=== PATIENT | female | born 1955 | race Caucasian/White ===

== ENCOUNTER → 2020-02-12 14:21 | Outpatient (BNVA) | payer MEDICARE, MEDICAID, SELFPAY | PROVIDERS: PCP Internal Medicine; Visit Provider Anesthesiology | DX: G90.522 Complex regional pain syndrome I of left lower limb (principal); I73.9 Peripheral vascular disease, unspecified; N18.30 Chronic kidney disease, stage 3 unspecified; I50.9 Heart failure, unspecified; Z79.891 Long term (current) use of opiate analgesic | CPT/HCPCS: 99213 ==

== ENCOUNTER → 2020-04-07 11:05 | Outpatient (BNVA) | payer MEDICARE, MEDICAID, SELFPAY | PROVIDERS: PCP Internal Medicine; Visit Provider Surgery Vascular Surgery | DX: I73.9 Peripheral vascular disease, unspecified (principal) | CPT/HCPCS: 99202 ==

== ENCOUNTER 2020-04-22 12:34 | Outpatient (REF) | payer MEDICARE, MEDICAID, SELFPAY ==
--- NOTE | 2020-04-22 12:41 | US_ITS ---
EXAMINATION: NONINVASIVE ASSESSMENT OF THE ARTERIES OF BOTH LOWER EXTREMITIES INCLUDING PVR EXAM AND BILATERAL LOWER EXTREMITY DUPLEX. CLINICAL INFORMATION: Atherosclerosis with claudication COMPARISON: None TECHNIQUE: Ankle pulse volume recordings, ankle pressure measurements and ankle brachial indices were obtained of the lower extremity arterial system bilaterally in addition to duplex Doppler techniques with wave form analysis and measurement of velocities in the common femoral, profunda femoral, superficial femoral, popliteal, tibial and peroneal arteries. The study was performed only at rest. FINDINGS: Brachial pressure is 170 RIGHT LEG 1. THE RIGHT ANKLE-BRACHIAL INDEX IS: 0.8 >0.97-1.25 = normal - no significant arterial disease 0.75-0.96 = mild peripheral arterial disease 0.5-0.74 = moderate peripheral arterial disease <0.50 = severe peripheral arterial disease <0.30 = critical arterial disease 2. SEGMENTAL PRESSURES (mmHg): Ankle: PT 131, DP 136 3. PVR WAVEFORMS: Ankle: Minimally blunted 4. DIRECT DUPLEX: Calcific plaque is present most prominently in the with a stenosis. Common femoral artery: 137 cm/s, monophasic Profunda femoris artery: 139 cm/s, monophasic Superficial femoral artery (proximal): 125 cm/s, multiphasic Superficial femoral artery (mid): 156 cm/s, monophasic Superficial femoral artery (distal): 180 cm/s, monophasic Proximal Popliteal artery: 83 cm/s, monophasic posterior tibial artery: 33 cm/s, monophasic LEFT LE. THE LEFT ANKLE-BRACHIAL INDEX IS: 0.9 (higher of the DP/PT) >0.97-1.25 = normal - no significant arterial disease 0.75-0.96 = mild peripheral arterial disease 0.5-0.74 = moderate peripheral arterial disease <0.50 = severe peripheral arterial disease <0.30 = critical arterial disease 2. SEGMENTAL PRESSURES: Ankle: PT 150, DP 109 3. PVR WAVEFORMS: Ankle: Normal 4. DIRECT DUPLEX: Calcified plaque is present with a area of velocity acceleration in the common femoral artery as well as the proximal and mid SFA consistent with stenoses Common femoral artery: 220 cm/s, Multiphasic Profunda femoris artery: 133 cm/s, Multiphasic Superficial femoral artery (proximal): 186 cm/s, monophasic Superficial femoral artery (mid): 147 cm/s, monophasic Superficial femoral artery (distal): 87 cm/s, monophasic Popliteal: 88 monophasic Posterior tibial: 30, monophasic US/US arterial duplex LE BI IMPRESSION: Right: Ankle-brachial indices consistent with mild peripheral vascular disease with diseased on duplex demonstrating monophasic flow throughout suggesting the possibility of inflow disease. Left: Left ankle-brachial index also consistent with mild disease with multiphasic flow present proximally but monophasic flow present distally. A common femoral artery and SFA stenoses are present.
== END 2020-04-22 12:35 | disposition home or self-care (01) ==
LOC: HO.US 12:34
PROVIDERS: PCP Internal Medicine; Visit Provider Surgery Vascular Surgery
DX: I70.213 Atherosclerosis of native arteries of extremities with intermittent claudication, bilateral legs (principal)
CPT/HCPCS: 93923; 93925

== ENCOUNTER → 2020-05-08 12:41 | Outpatient (BNVA) | payer MEDICARE, MEDICAID, SELFPAY | PROVIDERS: PCP Internal Medicine; Visit Provider Surgery Vascular Surgery | DX: I73.9 Peripheral vascular disease, unspecified (principal) | CPT/HCPCS: Q3014 ==

== ENCOUNTER → 2020-10-29 10:11 | Outpatient (BNVA) | payer MEDICARE, MEDICAID, SELFPAY | PROVIDERS: PCP Internal Medicine; Visit Provider Advanced Practice Midwife ==

== ENCOUNTER 2020-11-19 10:36 | Outpatient (REF) | payer MEDICARE, MEDICAID, SELFPAY ==
--- NOTE | ~2020-11-19 | US_ITS ---
EXAMINATION: PELVIC ULTRASOUND CLINICAL INFORMATION: Cervical mass COMPARISON: Previous CT of the abdomen and pelvis June 2015 TECHNIQUE: Transabdominal and transvaginal pelvic ultrasound was performed. Transvaginal exam was performed for better visualization the uterus, cervix and ovaries. FINDINGS: The uterus is anteverted and measures 7.8 x 3 x 3.4 cm in dimension. No focal uterine lesion is seen. Endometrial thickness is normal measuring 0.5 cm. There is a complex cystic lesion in the cervix that measures 2.3 x 1 6 x 2.2 cm. The ovaries are not seen. No adnexal mass is appreciated. There is no fluid in the pelvis. US/US pelvic and transvaginal IMPRESSION: 2.3 x 1.6 x 2.2 cm complex cystic lesion in the cervix. Normal-appearing uterus. Ovaries not seen.
== END 2020-11-19 10:37 | disposition home or self-care (01) ==
LOC: HO.US 10:36
PROVIDERS: Visit Provider Advanced Practice Midwife
DX: N88.8 Other specified noninflammatory disorders of cervix uteri (principal)
CPT/HCPCS: 76830; 76856

== ENCOUNTER → 2020-12-01 11:25 | Outpatient (BNVA) | payer MEDICARE, MEDICAID, SELFPAY | PROVIDERS: Visit Provider Advanced Practice Midwife | CPT/HCPCS: Q3014 ==

== ENCOUNTER 2020-12-03 09:37 | Emergency (ER) | payer MEDICARE, MEDICAID, SELFPAY ==
--- NOTE | ~2020-12-03 | CT_ITS ---
EXAMINATION: CT HEAD WITHOUT CONTRAST (STROKE PROTOCOL) CLINICAL INFORMATION: Stroke protocol. Right-sided hemiparesis COMPARISON: None TECHNIQUE: Contiguous axial imaging was performed from the skull base to vertex without intravenous administration of contrast. This CT examination was performed using dose optimization techniques as appropriate, variously including the following: *Automated exposure control *Adjustment of mA and/or kV according to patient size (this includes techniques or standardized protocols for targeted exams where dose is matched to indication/reason for exam; i.e. extremities or head) *Use of iterative reconstruction technique DLP: 784 mGy-cm FINDINGS: There is no intracranial hemorrhage, hematoma, or extra-axial fluid collection. The ventricles are normal in size. There is no hydrocephalus, edema, or mass effect. There is a faint region of diminished density within the left thalamus which could represent an early ischemic event. No significant mass effect or midline structure shift is appreciated with this.. . The calvarium appears intact. There is no pneumocephalus or orbital emphysema. The visualized sinuses and middle ears and mastoid air cells show no significant mucosal thickening. There are no air-fluid levels. CT/CT head for stroke IMPRESSION: Question faint region of diminished density within the left thalamus without mass effect or hemorrhage. This critical result was discussed with Dr. Ross at 12:15 PM hours on December 03, 2020. It was ascertained that the content and urgency of the report was understood at the time of direct communication.
[2020-12-03 09:39] VITALS: BP 139/70; PULSE 87; RESP 18; TEMP 36.6; O2SAT 96; BMI 38.9
--- NOTE | 2020-12-03 10:18 | ECG_ITS ---
Test Reason : STROKE Blood Pressure : / mmHG Vent. Rate : 075 BPM Atrial Rate : 075 BPM P-R Int : 160 ms QRS Dur : 096 ms QT Int : 392 ms P-R-T Axes : 074 051 099 degrees QTc Int : 437 ms Normal sinus rhythm with sinus arrhythmia Cannot rule out Anterior infarct (cited on or before 30-DEC-2017) Abnormal ECG When compared with ECG of 30-DEC-2017 14:13, T wave inversion no longer evident in Inferior leads Nonspecific T wave abnormality, improved in Lateral leads Referred By: Bárbara Ross Electronically Signed By:Sebastián Azul
--- NOTE | 2020-12-03 10:21 | ED_ITS ---
HPI - Neuro Symptoms/Deficit General Chief Complaint: Stroke Stated Complaint: right side numbness Time Seen by Provider: 12/03/20 09:44 Source: patient Mode of arrival: ambulatory Limitations: no limitations History of Present Illness HPI Narrative: 65 yo female woke up to use the bathroom at 2am today had an electric jolt to the R side of her body then it became weak, she fell due to this and hit her head no AC therapy, still tingling with weakness no prior episodes of this Onset (ago): hour(s) (2 am today) Timing confirmed by: other (self wok) History of same: No Severity: moderate Quality: weak and numb Relieving factors: none Exacerbating factors: none Context: sudden onset On Anticoagulants: No Associated symptoms: cough Treatments Prior to Arrival: none Related Data Home Medications Medication Instructions Recorded Confirmed aspirin 81 mg chewable tablet 1 tab PO DAILY 02/12/20 12/03/20 lorazepam 0.5 mg tablet 0.5 mg PO DAILY PRN 02/12/20 12/03/20 albuterol sulfate 90 mcg/actuation 2 puff PO Q6H PRN 12/03/20 12/03/20 aerosol inhaler atorvastatin 80 mg tablet 1 tab PO DAILY 12/03/20 12/03/20 cetirizine 10 mg tablet 10 mg PO DAILY PRN 12/03/20 12/03/20 ergocalciferol (vitamin D2) 1,250 1,250 mcg PO MO 12/03/20 12/03/20 mcg (50,000 unit) capsule levalbuterol tartrate 45 2 inh INHALATION DAILY 12/03/20 12/03/20 mcg/actuation aerosol inhaler (Xopenex HFA) Previous Rx's Medication Instructions Recorded metoprolol tartrate 50 mg tablet 50 mg PO BID #180 cap 05/19/20 blood-glucose meter (FreeStyle #1 ea 09/30/20 Lite Meter) lancets 28 gauge (FreeStyle #100 ea 09/30/20 Lancets) levothyroxine 150 mcg tablet 150 mcg PO DAILY #90 tab 10/05/20 glipizide 5 mg tablet 5 mg PO DAILY #90 tab 10/22/20 lisinopril 2.5 mg tablet 2.5 mg PO DAILY #90 tab 11/19/20 Allergies Allergy/AdvReac Type Severity Reaction Status Date / Time Penicillins Allergy Mild UNKNOWN Verified 12/01/20 11:26 buprenorphine [Suboxone] Allergy Unknown unknown Verified 12/01/20 11:26 naloxone [Suboxone] Allergy Unknown unknown Verified 12/01/20 11:26 Review of Systems Review of Systems: Constitutional : No Weight loss, No Fever, No Chills, No Fatigue, No Malaise ENT/Mouth : No sore throat, No Rhinorrhea Eyes: No Eye Pain, No Swelling, No Redness Cardiovascular : No Chest Pain, No SOB, No Dyspnea on Exertion, No Orthopnea, No Edema, No Palpitations Respiratory : pos Cough, No Sputum, pos Wheezing Gastrointestinal : No Nausea, No Vomiting, No Diarrhea, No Constipation, No abdominal Pain, No Hematochezia, No Melena Genitourinary : No Dysuria, No Urinary Frequency, No Hematuria, Musculoskeletal : No joint pain, No Myalgias, No Joint Swelling Skin : No Skin Lesions, No rash Neuro : pos Weakness, pos Numbness, No Dizziness, No Headache Psych : No Anxiety/Panic, No Depression Heme/Lymph: No Bruising, No Bleeding,No Lymphadenopathy Endocrine : No Polyuria, No Polydipsia All other systems reviewed and are negative PMFSH Past Medical History Attestation statement: The following information was validated with the patient. Medical History Cervical cancer screening CKD (chronic kidney disease) COPD (chronic obstructive pulmonary disease) Diabetes High cholesterol Hypothyroidism Post-menopausal Screening for breast cancer Surgical History Hx of coronary artery bypass graft S/P cardiac catheterization Family History Family History Mother Diabetes CAD (coronary artery disease) Social History Social History Alcohol intake: never Patient Tobacco Use Status: Former Tobacco user Quit Date: last week Cigarettes Per Day: 7 Years Smoked: 40+ years Advance Directives: No Advance Directives Information Provided: Yes Physical Exam Vital Signs: Vital Signs: Last Vital Signs Temp 98 F 12/03/20 09:39 Pulse 87 12/03/20 13:21 Resp 20 12/03/20 13:21 BP 149/88 H 12/03/20 13:21 Pulse Ox 96 12/03/20 09:39 Body Mass Index 38.9 Appearance: Alert. Oriented X3. No acute distress. Eyes: Pupils equal, round and reactive to light. ENT: Pharynx normal. Neck: Normal inspection. Neck supple. CVS: Normal heart rate and rhythm. Pulses normal. Respiratory: No respiratory distress. Breath sounds decreased with diffuse end exp wheezes Abdomen: Soft and nontender. Skin: Skin warm and dry. Normal skin color. Normal skin turgor. Extremities: No lower extremity edema. No calf ttp Neuro: Oriented X 3. R sided 4/5 UE and LUE. No sensory deficit. Course Course Course Narrative: CTA held as the patient is a tough stick she now is refusing to stay in the hospital as well as repeat IV sticks, aware at bedside, patient aware she had a stroke likely but now states she is not going to stay overnight regardlless, recent Cr abnormal as well. call from Radiology 1210pm - no acute findings. ?thalamic low density area for infarct - left side patient refusing MRI still wants to sign out AMA, GCS 15, and I both tried to get her to stay but she refuses, she is aware she had a stroke, she still refuses to stay I told her her CPK, troponin and blood sugar was abnormal - she still refuses to stay, I do not feel I can section her, I have been to the bedside 4+ times to get her to stay but she still refuses, the was not able to get her to s ruthie either MDM - Neuro Symptoms/Deficit MDM Narrative Medical decision making narrative: 65 yo female woke up to use the bathroom at 2am today had an electric jolt to the R side of her body then it became weak, she fell due to this and hit her head no AC therapy, still tingling with weakness no prior episodes of this at this time she has significant R sided hemiparesis she is in the window for thrombectomy - CT head and CT angio for stroke ordered, she is presenting 8 hours after onset not a candidate for tPa - also here with wheezing - IV steroids, neb treatment, dispo per results and findings. Lab Data Result diagrams: 12/03/20 10:43 12/03/20 12:04 Labs: Lab Results 12/03/20 12/03/20 12/03/20 Range/Units 10:34 10:41 10:43 WBC 12.7 H (4.8-10.8) X10*3/uL RBC 4.10 L (4.20-5.50) X10*6/uL Hgb 13.6 (12.0-16.0) g/dl Hct 39.6 (37-47) % MCV 96.6 (80-98) fL MCH 33.2 H (27.0-33.0) pg MCHC 34.3 (31.0-35.0) g/dl RDW 12.3 (11.0-16.0) % Plt Count 285 (160-400) X10*3/uL MPV 12.1 (9.4-12.3) fL Immature Gran % (Auto) 0.4 (0.0-0.4) % Neut % (Auto) 83.8 H (45-73) % Lymph % (Auto) 10.9 L (20-40) % [place] % (Auto) 4.0 (2-11) % Eos % (Auto) 0.5 (0-4) % Baso % (Auto) 0.4 (0-2) % Lymph # (Auto) 1.4 (1.2-4.9) X10*3/uL [place] # (Auto) 0.5 (0.1-1.2) X10*3/uL Eos # (Auto) 0.1 (0.0-0.4) X10*3/uL Baso # (Auto) 0.1 (0.0-0.2) X10*3/uL Abs Immat Gran (auto) 0.05 H (0.00-0.03) X10*3/uL Absolute Neuts (auto) 10.6 H (2.0-8.3) X10*3/uL Absolute Nucleated RBC 0.000 (0.0-0.012) X10*3/uL Nucleated RBC % (auto) 0.0 (0.0-0.2) /100WBC PT (9.9-13.0) SEC Whole Blood PT 11.4 (11.1-13.5) sec INR (0.9-1.1) Whole Blood INR 1.0 (0.9-1.1) APTT (24.1-38.0) SEC Sodium (135-145) mmol/L Potassium (3.3-5.1) mmol/L Chloride (96-108) mmol/L Carbon Dioxide (22-29) mmol/L Anion Gap (12-20) BUN (9-16) mg/dL Creatinine (0.5-1.4) mg/dL Estim Creat Clear Calc Estimated GFR POC Glucose 391 H* (60-115) mg/dL Random Glucose (60-115) mg/dL Calcium (8.4-10.2) mg/dL Magnesium (1.6-2.6) mg/dL Total Bilirubin (0.0-1.0) mg/dL Direct Bilirubin (0.0-0.5) mg/dL AST (5-31) U/L ALT (0-31) U/L Alkaline Phosphatase (39-117) U/L Total Creatine Kinase (26-140) U/L Troponin I High Sens (<3.5-17.0) ng/L B-Natriuretic Peptide (<100) pg/mL Total Protein (6.5-8.0) g/dL Albumin (3.5-5.0) g/dL Urine Color Urine Appearance Urine pH (5.0-8.0) Ur Specific [place] (1.005-1.025) Urine Protein (NEG-TRACE) MG/DL Urine Glucose (UA) (NEG) MG/DL Urine Ketones (NEG) MG/DL Urine Blood (NEG) Urine Nitrite (NEG) Ur Leukocyte Esterase (NEG) Urine RBC (0) /HPF Urine WBC (0-4) /HPF Ur Squamous Epith Cells /LPF Urine Bacteria /LPF COVID-19 ([facility]) (Negative) COVID-19 Clin Com 12/03/20 12/03/20 12/03/20 Range/Units 10:43 10:45 12:02 WBC (4.8-10.8) X10*3/uL RBC (4.20-5.50) X10*6/uL Hgb (12.0-16.0) g/dl Hct (37-47) % MCV (80-98) fL MCH (27.0-33.0) pg MCHC (31.0-35.0) g/dl RDW (11.0-16.0) % Plt Count (160-400) X10*3/uL MPV (9.4-12.3) fL Immature Gran % (Auto) (0.0-0.4) % Neut % (Auto) (45-73) % Lymph % (Auto) (20-40) % [place] % (Auto) (2-11) % Eos % (Auto) (0-4) % Baso % (Auto) (0-2) % Lymph # (Auto) (1.2-4.9) X10*3/uL [place] # (Auto) (0.1-1.2) X10*3/uL Eos # (Auto) (0.0-0.4) X10*3/uL Baso # (Auto) (0.0-0.2) X10*3/uL Abs Immat Gran (auto) (0.00-0.03) X10*3/uL Absolute Neuts (auto) (2.0-8.3) X10*3/uL Absolute Nucleated RBC (0.0-0.012) X10*3/uL Nucleated RBC % (auto) (0.0-0.2) /100WBC PT 10.1 (9.9-13.0) SEC Whole Blood PT (11.1-13.5) sec INR 0.9 (0.9-1.1) Whole Blood INR (0.9-1.1) APTT 45.9 H (24.1-38.0) SEC Sodium (135-145) mmol/L Potassium (3.3-5.1) mmol/L Chloride (96-108) mmol/L Carbon Dioxide (22-29) mmol/L Anion Gap (12-20) BUN (9-16) mg/dL Creatinine (0.5-1.4) mg/dL Estim Creat Clear Calc Estimated GFR POC Glucose (60-115) mg/dL Random Glucose (60-115) mg/dL Calcium (8.4-10.2) mg/dL Magnesium (1.6-2.6) mg/dL Total Bilirubin (0.0-1.0) mg/dL Direct Bilirubin (0.0-0.5) mg/dL AST (5-31) U/L ALT (0-31) U/L Alkaline Phosphatase (39-117) U/L Total Creatine Kinase (26-140) U/L Troponin I High Sens 27.1 H* (<3.5-17.0) ng/L B-Natriuretic Peptide 33 (<100) pg/mL Total Protein (6.5-8.0) g/dL Albumin (3.5-5.0) g/dL Urine Color Urine Appearance Urine pH (5.0-8.0) Ur Specific [place] (1.005-1.025) Urine Protein (NEG-TRACE) MG/DL Urine Glucose (UA) (NEG) MG/DL Urine Ketones (NEG) MG/DL Urine Blood (NEG) Urine Nitrite (NEG) Ur Leukocyte Esterase (NEG) Urine RBC (0) /HPF Urine WBC (0-4) /HPF Ur Squamous Epith Cells /LPF Urine Bacteria /LPF COVID-19 ([facility]) Negative (Negative) COVID-19 Clin Com See Note 12/03/20 12/03/20 Range/Units 12:02 12:04 WBC (4.8-10.8) X10*3/uL RBC (4.20-5.50) X10*6/uL Hgb (12.0-16.0) g/dl Hct (37-47) % MCV (80-98) fL MCH (27.0-33.0) pg MCHC (31.0-35.0) g/dl RDW (11.0-16.0) % Plt Count (160-400) X10*3/uL MPV (9.4-12.3) fL Immature Gran % (Auto) (0.0-0.4) % Neut % (Auto) (45-73) % Lymph % (Auto) (20-40) % [place] % (Auto) (2-11) % Eos % (Auto) (0-4) % Baso % (Auto) (0-2) % Lymph # (Auto) (1.2-4.9) X10*3/uL [place] # (Auto) (0.1-1.2) X10*3/uL Eos # (Auto) (0.0-0.4) X10*3/uL Baso # (Auto) (0.0-0.2) X10*3/uL Abs Immat Gran (auto) (0.00-0.03) X10*3/uL Absolute Neuts (auto) (2.0-8.3) X10*3/uL Absolute Nucleated RBC (0.0-0.012) X10*3/uL Nucleated RBC % (auto) (0.0-0.2) /100WBC PT (9.9-13.0) SEC Whole Blood PT (11.1-13.5) sec INR (0.9-1.1) Whole Blood INR (0.9-1.1) APTT (24.1-38.0) SEC Sodium 131 L (135-145) mmol/L Potassium 5.4 H (3.3-5.1) mmol/L Chloride 98 (96-108) mmol/L Carbon Dioxide 22 (22-29) mmol/L Anion Gap 16 (12-20) BUN 25 H (9-16) mg/dL Creatinine 1.67 H (0.5-1.4) mg/dL Estim Creat Clear Calc 38.3 Estimated GFR 31 POC Glucose (60-115) mg/dL Random Glucose 390 H* (60-115) mg/dL Calcium 9.9 (8.4-10.2) mg/dL Magnesium 1.7 (1.6-2.6) mg/dL Total Bilirubin 0.2 (0.0-1.0) mg/dL Direct Bilirubin < 0.2 (0.0-0.5) mg/dL AST 23 (5-31) U/L ALT 15 (0-31) U/L Alkaline Phosphatase 127 H (39-117) U/L Total Creatine Kinase 1001 H (26-140) U/L Troponin I High Sens (<3.5-17.0) ng/L B-Natriuretic Peptide (<100) pg/mL Total Protein 7.7 (6.5-8.0) g/dL Albumin 4.1 (3.5-5.0) g/dL Urine Color STRAW Urine Appearance HAZY Urine pH 6.0 (5.0-8.0) Ur Specific [place] 1.015 (1.005-1.025) Urine Protein 2+ H (NEG-TRACE) MG/DL Urine Glucose (UA) >=1000 H (NEG) MG/DL Urine Ketones NEG (NEG) MG/DL Urine Blood 2+ H (NEG) Urine Nitrite NEG (NEG) Ur Leukocyte Esterase NEG (NEG) Urine RBC 1-4 (0) /HPF Urine WBC 1-4 (0-4) /HPF Ur Squamous Epith Cells 1+ /LPF Urine Bacteria NONE /LPF COVID-19 ([facility]) (Negative) COVID-19 Clin Com ECG Data Attestation: I personally reviewed and interpreted this ECG as follows: ECG interpretation date: 12/03/20 ECG interpretation time: 10:58 Interpretation: Rate: 75 Rhythm: NSR [place]: normal Normal P waves. Normal GOLDY. Normal QRS complex. ST T wave : inverted I and aVL, no DENIS qTC: normal prior studies: lateral T waves new from 2018 The study has been interpreted contemporaneously by me. . NIH Stroke Scale Internal: Initial- Upon Arrival Level of Consciousness: Alert Level of Consciousness Questions: Answers both questions correctly Level of Consciousness Commands: Performs both tasks correctly Best Gaze: Normal Visual: No visual loss Facial Palsy: Normal Motor Arm (Right): Some effort against gravity Motor Arm (Left): No drift Motor Leg (Right): Some effort against gravity Motor Leg (Left): No drift Limb Ataxia: Absent Sensory: Normal Best Language: No aphasia Dysarthia: Normal Extinction and Inattention: No abnormality Score: 4 Discharge Plan Discharge Clinical Impression: Acute CVA (cerebrovascular accident) Patient Disposition: Left Against Medical Advice Instructions: Ischemic Stroke (DC), Against Medical Advice (ED), Stroke (DC) Additional Instructions: return to ED for any worsening symptoms or concerns you were offered admission for stroke workup but refused including further radio logy testing, labs, Neurology consult - you can come back at any time please increase your aspirin to the enteric coated form of 325mg daily Prescriptions: No Action metoprolol tartrate 50 mg tablet 50 mg PO BID Qty: 180 RF: 1 (DME) blood-glucose meter [FreeStyle Lite Meter] Kit See Rx Instructions .ROUTE .MEDSUPPLY Qty: 1 RF: 0 (DME) lancets [FreeStyle Lancets] 28 gauge misc See Rx Instructions .ROUTE .MEDSUPPLY Qty: 100 RF: 0 glipizide 5 mg tablet 5 mg PO DAILY Qty: 90 RF: 1 lisinopril 2.5 mg tablet 2.5 mg PO DAILY Qty: 90 RF: 1 atorvastatin 80 mg tablet 1 tab PO DAILY RF: 0 albuterol sulfate 90 mcg/actuation HFA aerosol inhaler 2 puff PO Q6H PRN (Reason: Wheezing) RF: 0 ergocalciferol (vitamin D2) 1,250 mcg (50,000 unit) capsule 1,250 mcg PO MO RF: 0 levalbuterol tartrate [Xopenex HFA] 45 mcg/actuation HFA aerosol inhaler 2 inh inhalation DAILY RF: 0 cetirizine 10 mg Tablet 10 mg PO DAILY PRN (Reason: Allergic Symptoms) RF: 0 levothyroxine 150 mcg tablet 150 mcg PO DAILY Qty: 90 RF: 0 aspirin 81 mg tablet,chewable 1 tab PO DAILY RF: 0 lorazepam 0.5 mg tablet 0.5 mg PO DAILY PRN (Reason: anxiety) RF: 0 Referrals: Freddy Sykes MD [Primary Care Provider] - 1 Week Interventions: ED Discharge Assessment Last Done: 12/03/20 13:43 Discharge Date/Time: 12/03/20 13:43
[2020-12-03] MEDS: Albuterol Sulfate (0.083%) 2.5 MG/3 ML VIAL.NEB INHALE (10:23)
[2020-12-03 10:24] VITALS: PULSE 76; O2SAT 94
[2020-12-03 10:46] LABS: Prothrombin Time Whole Bld POC 11.4 sec (11.1-13.5)
[2020-12-03 10:49] LABS: MANUAL DIFF FLAG NO
[2020-12-03 10:50] LABS: Basophils Absolute Auto 0.1 X10*3/uL (0.0-0.2); Basophils Percent Auto 0.4 % (0-2); Eosinophils Absolute Auto 0.1 X10*3/uL (0.0-0.4); Eosinophils Percent Auto 0.5 % (0-4); Hematocrit 39.6 % (37-47); Hemoglobin 13.6 g/dl (12.0-16.0); Imm Gran Abs Auto 0.05 X10*3/uL (0.00-0.03); Imm Gran Pct Auto 0.4 % (0.0-0.4); Lymphocytes Absolute Auto 1.4 X10*3/uL (1.2-4.9); Lymphocytes Percent Auto 10.9 % (20-40); Mean Corpuscular HGB Conc 34.3 g/dl (31.0-35.0); Mean Corpuscular Hemoglobin 33.2 pg (27.0-33.0); Mean Corpuscular Volume 96.6 fL (80-98); Mean Platelet Volume 12.1 fL (9.4-12.3); Monocytes Absolute Auto 0.5 X10*3/uL (0.1-1.2); Neutrophils Absolute Auto 10.6 X10*3/uL (2.0-8.3); Neutrophils Percent Auto 83.8 % (45-73); Platelet Count 285 X10*3/uL (160-400); Red Cell Distribution Width 12.3 % (11.0-16.0); White Blood Count 12.7 X10*3/uL (4.8-10.8)
[2020-12-03] MEDS: methylPREDNISolone Sod Succ 125 MG/2 ML VIAL IVPUSH (10:52)
[2020-12-03 10:55] LABS: Glucose, Whole Blood 391 mg/dL (60-115)
[2020-12-03 11:15] LABS: COVID-19 Test Negative (Negative)
[2020-12-03 11:18] LABS: B Type Natriuretic Peptide 33 pg/mL (<100); Troponin-I High Sensitivity 27.1 ng/L (<3.5-17.0)
--- NOTE | 2020-12-03 11:57 | PHA.MEDREC ---
Pharmacy Consult ? Medication Reconciliation Pharmacy has completed the medication reconciliation. There are no remarkable issues for provider's attention. Helen Fry, Ruth AnnD
[2020-12-03 12:12] LABS: Glucose Urine UA >=1000 MG/DL (NEG); Leukocyte Esterase Urine NEG (NEG); Nitrite Urine NEG (NEG); Specific Gravity - Urine 1.015 (1.005-1.025); UACC Culture Trigger NO; Urine Blood 2+ (NEG); Urine Ketones NEG (NEG); Urine Protein 2+ MG/DL (NEG-TRACE)
[2020-12-03 12:18] LABS: Appearance Urine HAZY; Color Urine STRAW; INTERNATIONAL NORM RATIO 0.9 (0.9-1.1); Prothrombin Time 10.1 SEC (9.9-13.0)
[2020-12-03 12:20] LABS: Partial Thromboplastin Time 45.9 SEC (24.1-38.0)
[2020-12-03 12:25] LABS: Squamous Epithelial Cell Urine 1+ /LPF
[2020-12-03 13:04] LABS: Alanine Aminotransferase 15 U/L (0-31); Albumin Level 4.1 g/dL (3.5-5.0); Alkaline Phosphatase 127 U/L (39-117); Anion Gap 16 (12-20); Aspartate Amino Transferase 23 U/L (5-31); Bilirubin Direct < 0.2 mg/dL (0.0-0.5); Bilirubin Total 0.2 mg/dL (0.0-1.0); Blood Urea Nitrogen 25 mg/dL (9-16); Calcium 9.9 mg/dL (8.4-10.2); Carbon Dioxide 22 mmol/L (22-29); Chloride 98 mmol/L (96-108); Creatinine Clr Calc Pharmacy 38.3; Estimated Glomerular Filt Rate 31; Glucose Random 390 mg/dL (60-115); Magnesium 1.7 mg/dL (1.6-2.6); Potassium 5.4 mmol/L (3.3-5.1); Sodium 131 mmol/L (135-145); Total Protein 7.7 g/dL (6.5-8.0)
[2020-12-03 13:21] VITALS: BP 149/88; PULSE 87; RESP 20
== END 2020-12-03 13:43 | disposition left against medical advice (07) ==
PROVIDERS: Emergency Provider Emergency Medicine; PCP Internal Medicine
DX: I63.9 Cerebral infarction, unspecified (principal); R29.704 NIHSS score 4; R20.0 Anesthesia of skin; G44.309 Post-traumatic headache, unspecified, not intractable; J44.9 Chronic obstructive pulmonary disease, unspecified; R05 Cough; I25.10 Atherosclerotic heart disease of native coronary artery without angina pectoris; Z20.822 Contact with and (suspected) exposure to COVID-19; Z87.891 Personal history of nicotine dependence; Z79.899 Other long term (current) drug therapy; Z79.82 Long term (current) use of aspirin
CPT/HCPCS: 36415; 70450; 80048; 80076; 81001; 82550; 82947; 83735; 83880; 84484; 85025; 85610; 85730; 87635; 93005; 94640; 96374; 99283; 99284; J2930

== ENCOUNTER → 2020-12-10 13:41 | Outpatient (BNVA) | payer MEDICARE, MEDICAID, SELFPAY | PROVIDERS: PCP Internal Medicine; Visit Provider Nurse Practitioner Family | DX: I25.10 Atherosclerotic heart disease of native coronary artery without angina pectoris (principal); R53.1 Weakness; Z95.1 Presence of aortocoronary bypass graft | CPT/HCPCS: 99212 ==

== ENCOUNTER → 2020-12-14 07:18 | Outpatient (REF) | payer MEDICARE, MEDICAID, SELFPAY ==
--- NOTE | 2020-12-14 07:40 | HM_ITS ---
TEST PERFORMED: Cardiac event monitoring. ENROLLMENT PERIOD: 12/14/2020 to 01/13/2021. INDICATION: Transient ischemic attack. REQUESTING PHYSICIAN: Shu Riley NP. FINDINGS: In the above monitoring period, underlying rhythm was sinus. The rates ranged from 79 to 94 beats per minute. Rare PACs were noted. No patient symptoms. CONCLUSION: A 30-day monitor showing sinus rhythm with rare PACs but no other arrhythmias. Neo Salgado MD HS/POLO / [id number]
--- NOTE | 2020-12-14 07:40 | CA_ITS ---
Transthoracic Echocardiogram Patient (Last, First, Middle): Mercedes Negrete A Gender: Female Date of : 1955 Age: 65 Procedure Date: 12/14/2020 Procedure Type: Transthoracic Echocardiogram Location: OP Height: 152.4 cm Weight: 99.79 kg BSA: 1.94 m2 Heart Rate: bpm BP: 130 / 90 mmHg Hogshead Cooper: ASA Referring MD: Shu Riley ROLLING UP MACHINE OPERATORShawna Symptoms: R53.1 - Weakness Study Quality: Fair ECG Rhythm: Sinus Conclusions: - The left ventricular systolic function is normal. The calculated ejection fraction is 65% by biplane method. - Possible moderate diastolic dysfunction but left atrial size and pulmonary artery pressures within normal limits. - There is mildly decreased right ventricular systolic function. - There is mild calcification of the aortic valve. - There is mild mitral annular calcification. Findings Procedure Information The patient declines contrast. Left Ventricle Normal left ventricular cavity size. There is mildly increased left ventricular wall thickness. The left ventricular systolic function is normal. The calculated ejection fraction is 65% by biplane method. There is no evidence of regional wall motion abnormalities. E/E prime ratio is >15, consistent with elevated filling pressures. Possible moderate diastolic dysfunction but left atrial size and pulmonary artery pressures within normal limits. Right Ventricle Normal right ventricular cavity size. There is mildly decreased right ventricular systolic function. TAPSE 1.65cm. Atria Both atria are normal in size. Aortic Valve The aortic valve was not well visualized. There is mild calcification of the aortic valve. There is no aortic valve stenosis. There is no aortic valve regurgitation. Mitral Valve There is mild mitral annular calcification. There is trace mitral valve regurgitation. There is no mitral valve stenosis. Pulmonic Valve The pulmonic valve was not well visualized. Tricuspid Valve There is mild tricuspid valve regurgitation. The pulmonary artery systolic pressure is normal. Great Vessels The aortic annulus, sinuses of valsalva, and asc aorta are normal in size. Venous The inferior vena cava is normal in size and collapses greater than 50% with inspiration. Pericardium/Pleural There is no evidence of pericardial effusion. Prior Study Comparison Changes noted compared to prior study dated: 06/14/2019. See comments on diastolic function; RV function. Measurements 2D Linear Measurements IVSd: 1.03 0.6-0.9/0.6-1.0 cm LVIDd: 4.19 3.9-5.3/4.2-5.9 cm LVIDd Index: 2.16 2.4-3.2/2.2-3.1 cm/m2 LVIDs: 2.69 2.0-3.6 cm LVPWd: 1.02 0.7-1.1 cm Ao Root: 2.70 2.1-3.5 cm LA Diam: 4.40 2.7-3.8/3.0-4.0 cm LAIDs Index: 2.27 1.5-2.3 cm/m2 LV Mass: 176.19 67-162/88-224 g LV Mass Index: 90.82 43-95/49-115 g/m2 LVOT Diam: 2.00 3.0+(-)1.3 cm 2D Systolic Function EF 4C: 60.30 >55% EF 2C: 67.80 >55% EF BiP: 65.10 >55% Mitral Valve MV Pk E: 1.23 MV PK A: 1.00 MV Decel Time: 213.00 E/A: 1.20 E'Lateral: 7.40 E'Medial: 6.53 E/E' Med: 18.80 E/E' Lat: 16.60 PHT: 62.00 MVA PHT: 3.55 Decel Dubois: 5.77 Aortic Valve AoV Pk Dave: 1.56 AoV Mn Dave: 1.03 AoV VTI: 0.30 AoV Pk Grad: 10.00 Aov Mn Grad: 5.00 MEL Cont.VTI: 2.08 LVOT LVOT Pk Dave: 0.90 LVOT Mn Dave: 0.60 LVOT VTI: 0.20 LVOT Pk Grad: 3.00 LVOT Mn Grad: 2.00 LVOT Diam: 2.00 LVOT Area: 3.14 Diastolic Function MV Pk E: 1.23 MV Pk A: 1.00 E/A: 1.20 E'Medial: 6.53 E/E' Med: 18.80 E' Laterial: 7.40 E/E' Lat: 16.60 Right Ventricle TAPSE (mm): 1.65 Tricuspid Valve TR Pk Dave: 2.64 TR Pk Grad: 28.00 RA Press: 3.00 RVSP: 31.00 Great Vessels Aorta Ao Root-2D: 2.70 2.0-3.7 cm Ao Asc: 3.10 2.1-3.4 cm Ao Arch: 2.70 Updated in Other Vendor System with Status of Final Neo Salgado MD electronically signed on 12/14/2020 11:33:53 AM with status of Final
== END ==
LOC: HO.CARD 07:18
PROVIDERS: PCP Internal Medicine; Visit Provider Nurse Practitioner Family
DX: R53.1 Weakness (principal); R93.1 Abnormal findings on diagnostic imaging of heart and coronary circulation
CPT/HCPCS: 93270; 93306

== ENCOUNTER 2020-12-29 10:17 | Outpatient (REF) | payer MEDICARE, MEDICAID, SELFPAY ==
--- NOTE | ~2020-12-29 | US_ITS ---
EXAMINATION: US EXTRACRANIAL CAROTID DUPLEX, BILATERAL CLINICAL INFORMATION: Cerebral infarction COMPARISON: None TECHNIQUE: Real-time ultrasound and Doppler techniques (integrating B-mode 2-D vascular images, Doppler spectral analysis and color-flow Doppler imaging) were utilized to interrogate the extracranial carotid arteries, the vertebral arteries and proximal subclavian arteries bilaterally. The degree of stenosis is determined by criteria similar to NASCET. FINDINGS: Right Side: 1. There is calcified atherosclerotic plaque seen in the bifurcation/proximal ICA region. 2. The common carotid artery PSV proximally is 87 cm/s and distally 75 cm/s. 3. The proximal internal carotid artery velocities are 169 cm/s systolic and 45 cm/s diastolic. 4. The proximal external carotid artery PSV is 169 cm/s. 5. The vertebral artery shows antegrade flow. 6. The subclavian artery waveforms are normal. Left Side: 1. There is calcified atherosclerotic plaque seen in the bifurcation/proximal ICA region. 2. The common carotid artery PSV proximally is 102 cm/s and distally not imaged but appears widely patent. 3. The proximal internal carotid artery velocities are 113 cm/s systolic and 40 cm/s diastolic. 4. The proximal external carotid artery PSV is 122 cm/s. 5. The vertebral artery shows antegrade flow. 6. The subclavian artery waveforms are normal. US/US carotid duplex BI IMPRESSION: 1. RIGHT: Moderate, hemodynamically significant stenosis of the proximal right internal carotid artery corresponding to a 50-79% stenosis by velocity criteria. 2. LEFT: Minimal, non-hemodynamically significant stenosis of the proximal left internal carotid artery corresponding to a 0-49% stenosis by velocity criteria.
== END 2020-12-29 10:18 | disposition home or self-care (01) ==
LOC: HO.HMGCX 10:17
PROVIDERS: Visit Provider Nurse Practitioner Family
DX: I63.9 Cerebral infarction, unspecified (principal); R53.1 Weakness; I63.89 Other cerebral infarction
CPT/HCPCS: 93880

== ENCOUNTER → 2021-01-25 14:46 | Outpatient (BNVA) | payer MEDICARE, MEDICAID, SELFPAY | PROVIDERS: PCP Internal Medicine; Visit Provider Internal Medicine Cardiovascular Disease | DX: I63.9 Cerebral infarction, unspecified (principal); I73.9 Peripheral vascular disease, unspecified; I10 Essential (primary) hypertension; Z95.1 Presence of aortocoronary bypass graft | CPT/HCPCS: 99212 ==

== ENCOUNTER → 2021-05-27 10:24 | Outpatient (BNVA) | payer MEDICARE, MEDICAID, SELFPAY | PROVIDERS: PCP Internal Medicine; Referring Provider Internal Medicine; Visit Provider Internal Medicine Cardiovascular Disease | DX: I25.10 Atherosclerotic heart disease of native coronary artery without angina pectoris (principal); I13.0 Hypertensive heart and chronic kidney disease with heart failure and stage 1 through stage 4 chronic kidney disease, or unspecified chronic kidney disease; N18.30 Chronic kidney disease, stage 3 unspecified; I50.9 Heart failure, unspecified; I69.398 Other sequelae of cerebral infarction | CPT/HCPCS: 99212 ==

== ENCOUNTER → 2022-02-24 08:53 | Outpatient (BNVA) | payer MEDICARE, MEDICAID, SELFPAY | PROVIDERS: Visit Provider Internal Medicine Cardiovascular Disease | DX: I25.10 Atherosclerotic heart disease of native coronary artery without angina pectoris (principal); I10 Essential (primary) hypertension; G47.30 Sleep apnea, unspecified | CPT/HCPCS: 93005; 99212 ==

== ENCOUNTER → 2022-03-08 13:44 | Outpatient (REF) | payer MEDICARE, MEDICAID, SELFPAY | LOC: HO.SL 13:44 | PROVIDERS: Visit Provider Internal Medicine Cardiovascular Disease | DX: G47.30 Sleep apnea, unspecified (principal); R06.83 Snoring | CPT/HCPCS: 95806 ==

== ENCOUNTER 2022-06-30 08:08 | Emergency (ER) | payer MEDICARE, MEDICAID, SELFPAY ==
[2022-06-30] VITALS (10 sets, daily range): BP systolic 137–194; BP diastolic 79–137; PULSE 118–141; RESP 14–28; TEMP 36.4–36.5; O2SAT 89–100; BMI 43.7
--- NOTE | 2022-06-30 | ECG_ITS ---
Test Reason : dypnea Blood Pressure : / mmHG Vent. Rate : 119 BPM Atrial Rate : 000 BPM P-R Int : 000 ms QRS Dur : 098 ms QT Int : 282 ms P-R-T Axes : 000 069 222 degrees QTc Int : 396 ms Atrial fibrillation with rapid ventricular response Anterior infarct (cited on or before 30-DEC-2017) ST & T wave abnormality, consider inferolateral ischemia Abnormal ECG When compared with ECG of 30-JUN-2022 08:33, Atrial fibrillation has replaced Atrial flutter with 2 to 1 block Referred By: Malcolm Crawley Electronically Signed By:PEPE MIDDLETON MD
--- NOTE | ~2022-06-30 | XR_ITS ---
EXAMINATION: XR CHEST CLINICAL INFORMATION: Shortness of breath COMPARISON: Chest x-ray the 2017 TECHNIQUE: Frontal view of the chest was obtained. FINDINGS: Cardiac silhouette is normal in size. Patient is status post median sternotomy. Lungs are adequately aerated. Subtle patchy airspace opacities noted bilaterally. No pleural effusion. No pneumothorax. XR/XR chest 1V IMPRESSION: Subtle patchy airspace opacities noted bilaterally. Findings are nonspecific but may represent a viral infiltrate.
--- NOTE | 2022-06-30 08:11 | ECG_ITS ---
Test Reason : sob Blood Pressure : / mmHG Vent. Rate : 142 BPM Atrial Rate : 142 BPM P-R Int : 152 ms QRS Dur : 094 ms QT Int : 300 ms P-R-T Axes : 000 067 230 degrees QTc Int : 461 ms Poor data quality Atrial flutter with 2 to 1 block Anterior infarct (cited on or before 30-DEC-2017) ST & T wave abnormality, consider inferolateral ischemia Abnormal ECG When compared with ECG of 03-DEC-2020 10:51, Atrial flutter with 2 to 1 block has replaced Normal sinus rhythm Vent. rate has increased BY [address] now depressed in Lateral leads T wave inversion now evident in Inferior leads T wave amplitude has increased in Anterior leads Referred By: Macey Nicole Electronically Signed By:PEPE MIDDLETON MD
[2022-06-30] MEDS: methylPREDNISolone Sod Succ 125 MG/2 ML VIAL IVPUSH (08:25)
--- NOTE | 2022-06-30 08:25 | PC.NURSE ---
pt coming in by ems in some respiratory distress, breathing at 26-30 when arrived, sating well at this time 97%, but labored breathing, expiatory wheezing dr chua at bedside, respiratory at bedside attempting to put the bipap on but pt not able to tolerate the bipap, pulling it off, pt put on a venti mask at 11l and tolerating well.
[2022-06-30] MEDS: fentaNYL citrate/PF 100 MCG/2 ML VIAL 25 MCG IVPUSH (08:27)
[2022-06-30] MEDS: Furosemide 100 MG/10 ML VIAL 60 MG IVPUSH (08:37)
--- NOTE | 2022-06-30 08:39 | PC.RT ---
pt current refusing BIPAP. keeps ripping the mask off. yesica respiratory tx well. will revisit and retry the BIPAP in an hour or so.
[2022-06-30] MEDS: Metoprolol Tartrate 50 MG TABLET PO (08:58)
[2022-06-30] MEDS: lisinopriL 2.5 MG TABLET PO (08:58)
[2022-06-30 09:07] LABS: MANUAL DIFF FLAG NO
[2022-06-30 09:10] LABS: Venous Blood Gas Refer to POC result
[2022-06-30 09:10] LABS: Basophils Absolute Auto 0.1 X10*3/uL (0.0-0.2); Basophils Percent Auto 0.8 % (0-2); Eosinophils Absolute Auto 0.5 X10*3/uL (0.0-0.4); Eosinophils Percent Auto 3.6 % (0-4); Hematocrit 34.1 % (37.0-47.0); Hemoglobin 11.1 g/dl (12.0-16.0); Imm Gran Abs Auto 0.05 X10*3/uL (0.00-0.03); Imm Gran Pct Auto 0.4 % (0.0-0.4); Lymphocytes Percent Auto 16.3 % (20-40); Mean Corpuscular HGB Conc 32.6 g/dl (31.0-35.0); Mean Corpuscular Hemoglobin 31.5 pg (27.0-33.0); Mean Corpuscular Volume 96.9 fL (80.0-98.0); Mean Platelet Volume 11.8 fL (9.4-12.3); Monocytes Absolute Auto 0.8 X10*3/uL (0.1-1.2); Monocytes Percent Auto 6.1 % (2-11); Neutrophils Absolute Auto 9.1 x10*3/uL (2.0-8.3); Neutrophils Percent Auto 72.8 % (45-73); Platelet Count 287 X10*3/uL (160-400); Red Blood Count 3.52 X10*6/uL (4.20-5.50); Red Cell Distribution Width 13.7 % (11.0-16.0); White Blood Count 12.5 X10*3/uL (4.8-10.8)
[2022-06-30 09:11] LABS: VBG Base Excess -3.7 mmol/L; VBG HCO3 21 mmol/L (22-26); VBG pCO2 39 mmHg; VBG pH 7.34 (7.32-7.43); VBG pO2 60 mmHg
--- NOTE | 2022-06-30 09:19 | MHC.EDTECH ---
pt changed over to hospital attire, excess linen removed and purewick placed.
[2022-06-30 09:20] LABS: INTERNATIONAL NORM RATIO 0.9 (0.9-1.1); Prothrombin Time 10.8 SEC (10.0-13.1)
--- NOTE | 2022-06-30 09:25 | ED_ITS ---
HPI - SOB/Dyspnea General Chief Complaint: Dyspnea Stated Complaint: SOB XS WEEK Time Seen by Provider: 06/30/22 08:21 Source: patient, family () and EMS Mode of arrival: EMS History of Present Illness HPI Narrative: 67-year-old female with significant past medical history of CVA/mi/COPD/CHF presents with worsening shortness of breath over the past couple of days and has been taking her medications as prescribed except for this morning. She denies any fever, chills, chest pain, GI or symptoms. Related Data Home Medications Medication Instructions Recorded Confirmed aspirin 81 mg chewable tablet 1 tab PO DAILY 02/12/20 02/24/22 lorazepam 0.5 mg tablet 0.5 mg PO DAILY PRN anxiety 02/12/20 02/24/22 albuterol sulfate 90 mcg/actuation 2 puff PO Q6H PRN Wheezing 12/03/20 02/24/22 aerosol inhaler atorvastatin 80 mg tablet 1 tab PO DAILY 12/03/20 02/24/22 cetirizine 10 mg tablet 10 mg PO DAILY PRN Allergic 12/03/20 02/24/22 Symptoms semaglutide 0.25 mg or 0.5 mg (2 mg subcut 05/27/21 02/24/22 mg/1.5 mL) subcutaneous pen injector (IdenIve) levothyroxine 200 mcg capsule 200 mcg PO DAILY 02/24/22 02/24/22 trihexyphenidyl 2 mg tablet 1 - 2 mg PO DAILY 02/24/22 02/24/22 Previous Rx's Medication Instructions Recorded blood-glucose meter (FreeStyle #1 ea 09/30/20 Lite Meter kit) glipizide 5 mg tablet 5 mg PO DAILY #90 tabs 10/22/20 lancets 28 gauge (FreeStyle #100 ea 12/05/20 Lancets) blood sugar diagnostic (FreeStyle #100 ea 12/08/20 Lite Strips) cane #1 ea 12/08/20 miscellaneous medical supply See Rx Instructions miscellaneous 12/08/20 .COMPLEX #1 ea levalbuterol tartrate 45 2 inh inhalation Q6H PRN shortness 12/28/20 mcg/actuation aerosol inhaler of breath or wheezing #15 grams (Xopenex HFA) gabapentin 300 mg capsule 300 mg PO BID #60 caps 01/01/21 ergocalciferol (vitamin D2) 1,250 1,250 mcg PO MO #12 caps 01/22/21 mcg (50,000 unit) capsule clopidogrel 75 mg tablet (Plavix) 75 mg PO DAILY #30 tabs 02/09/21 lisinopril 2.5 mg tablet 2.5 mg PO DAILY #90 tabs 06/02/21 metoprolol tartrate 50 mg tablet 50 mg PO BID #180 caps 01/02/22 Allergies Allergy/AdvReac Type Severity Reaction Status Date / Time Penicillins Allergy Mild UNKNOWN Verified 06/30/22 08:47 buprenorphine [Suboxone] Allergy Unknown unknown Verified 06/30/22 08:47 naloxone [Suboxone] Allergy Unknown unknown Verified 06/30/22 08:47 Review of Systems Review of Systems: Pertinent positives and negatives as stated in HPI [facility] Past Medical History Source: nursing notes reviewed Medical History CAD (coronary artery disease) Cervical cancer screening CKD (chronic kidney disease) COPD (chronic obstructive pulmonary disease) Diabetes High cholesterol Hypothyroidism Post-menopausal Screening for breast cancer Surgical History Hx of coronary artery bypass graft S/P cardiac catheterization Family History Family History Mother Diabetes CAD (coronary artery disease) Social History Social History Housing: House Alcohol intake: never Patient Tobacco Use Status: Current everyday Tobacco user Tobacco use type: Cigarette Cigarettes Per Day: 7 Years Smoked: 40+ years Smoked in Last 30 Days: Yes Use of substances other than those prescribed or required for medical reasons: No Advance Directives: Yes Advance Directives Information Provided: No Advance Directives on File: No service: No Current occupational status: disabled Physical Exam Vital Signs: Vital Signs: Last Vital Signs Temp 97.7 F 06/30/22 08:42 Pulse 139 H 06/30/22 08:51 Resp 20 06/30/22 08:51 BP 170/95 H 06/30/22 08:51 Pulse Ox 100 06/30/22 08:51 O2 Del Method 06/30/22 08:51 O2 Flow Rate 11 06/30/22 08:51 BMI result Body Mass Index 43.7 VITAL SIGNS: Reviewed. GENERAL: Chronically ill, appears older than stated age, in moderate to severe distress. HEAD: Normocephalic/atraumatic EYES: PERRLA, EOMI EARS: Ext canals without abnormality OROPHARYNX: no oral lesions noted, posterior pharynx clear NECK: Supple, no adenopathy LUNGS: Significant tachypnea and increased work of breathing with decreased breath sounds throughout SpO2<97> CARDIOVASCULAR: Tachycardia and rhythm without noted murmurs, no JVD but bilateral lower extremity edema 1 to 2+ ABDOMEN: Soft, non-tender, non-distended with bowel sounds. MUSCULOSKELETAL: No tenderness, deformities, or effusions noted on gross inspection. EXTREMITIES: No cyanosis, clubbing or edema. SKIN: Inspection of the skin reveals no rashes NEUROLOGIC: Alert and oriented x 4. Strength and sensation to light touch were grossly intact x 4. Medications Administered Discontinued Medications Generic Name Dose Route Start Last Admin Trade Name Freq PRN Reason Stop Dose Admin Fentanyl 25 mcg 06/30/22 08:21 06/30/22 08:27 Fentanyl Citrate/Pf 100 Mcg/2 Ml Vial IVPUSH 06/30/22 08:22 25 mcg ONCE ONE Administration Protocol Furosemide 60 mg 06/30/22 08:22 06/30/22 08:37 Furosemide 100 Mg/10 Ml Vial IVPUSH 06/30/22 08:23 60 mg ONCE ONE Administration Protocol Levalbuterol HCl 1.25 mg 06/30/22 08:21 06/30/22 08:37 Levalbuterol Hcl 1.25 Mg/0.5 Ml Vial.Neb INHALE 06/30/22 08:22 1.25 mg ONCE ONE Administration Lisinopril 2.5 mg 06/30/22 08:36 06/30/22 08:58 Lisinopril 2.5 Mg Tablet PO 06/30/22 08:37 2.5 mg ONCE ONE Administration Protocol Methylprednisolone Sodium Succinate 125 mg 06/30/22 08:36 06/30/22 08:25 Methylprednisolone Sod Succ 125 Mg/2 Ml Vial IVPUSH 06/30/22 08:37 125 mg ONCE ONE Administration Metoprolol Tartrate 50 mg 06/30/22 08:36 06/30/22 08:58 Metoprolol Tartrate 50 Mg Tablet PO 06/30/22 08:37 50 mg ONCE ONE Administration Protocol Medical Decision Making Medical Decision Making [facility] Narrative: 67-year-old female initially evaluated at bedside on arrival, clearly increased work of breathing and air hungry, worked with the patient got it calmed down attempted to apply rescue BiPAP however this was unable to be completed due to patient's underlying claustrophobic feeling. Patient was then placed on Oxymizer and given a Xopenex treatment, fentanyl, as well as Solu-Medrol, and Lasix, with consistent improvement. I have noted the leukocytosis, however this lab work was drawn after the patient received the Solu-Medrol and suspect that the leukocytosis is related to that as patient is afebrile, and again I repeat she was not placed on rescue BiPAP. And at no time has she been hypoxic. Chest x-ray and clinical exam consistent also for CHF exacerbation. Viral testing is negative. Tachycardia secondary to repeated breathing treatments, blood pressure is stable and patient oxygenating well on supplemental oxygen. 1117: Repeat troponin and BMP are in progress. Differential Diagnosis Please see the discussion above Consult Healthcare Provider Management of the patient was discussed with: Hospitalist [id number]: I discussed with the hospitalist who accepts admission. Lab Data Please see the discussion above 06/30/22 08:59 06/30/22 08:59 Labs: Lab Results 06/30/22 06/30/22 06/30/22 Range/Units 08:59 08:59 08:59 WBC 12.5 H (4.8-10.8) X10*3/uL RBC 3.52 L (4.20-5.50) X10*6/uL Hgb 11.1 L (12.0-16.0) g/dl Hct 34.1 L (37.0-47.0) % MCV 96.9 (80.0-98.0) fL MCH 31.5 (27.0-33.0) pg MCHC 32.6 (31.0-35.0) g/dl RDW 13.7 (11.0-16.0) % Plt Count 287 (160-400) X10*3/uL MPV 11.8 (9.4-12.3) fL Immature Gran % (Auto) 0.4 (0.0-0.4) % Neut % (Auto) 72.8 (45-73) % Lymph % (Auto) 16.3 L (20-40) % [place] % (Auto) 6.1 (2-11) % Eos % (Auto) 3.6 (0-4) % Baso % (Auto) 0.8 (0-2) % Lymph # (Auto) 2.0 (1.2-4.9) X10*3/uL [place] # (Auto) 0.8 (0.1-1.2) X10*3/uL Eos # (Auto) 0.5 H (0.0-0.4) X10*3/uL Baso # (Auto) 0.1 (0.0-0.2) X10*3/uL Abs Immat Gran (auto) 0.05 H (0.00-0.03) X10*3/uL Absolute Neuts (auto) 9.1 H (2.0-8.3) x10*3/uL Absolute Nucleated RBC 0.000 (0.0-0.012) X10*3/uL Nucleated RBC % (auto) 0.0 (0.0-0.2) /100WBC PT 10.8 (10.0-13.1) SEC INR 0.9 (0.9-1.1) VBG pH (7.32-7.43) VBG pCO2 mmHg VBG pO2 mmHg VBG HCO3 (22-26) mmol/L VBG O2 Saturation % VBG Base Excess mmol/L Sodium 136 (135-145) mmol/L Potassium 5.4 H (3.3-5.1) mmol/L Chloride 105 (96-108) mmol/L Carbon Dioxide 25 (22-29) mmol/L Anion Gap 11 L (12-20) BUN 19 H (9-16) mg/dL Creatinine 1.07 (0.5-1.4) mg/dL Estim Creat Clear Calc 55.4 Estimated GFR 51 Random Glucose 219 H (60-115) mg/dL Lactic Acid (0.5-2.0) mmol/L Calcium 8.9 D (8.4-10.2) mg/dL Total Bilirubin 0.4 (0.0-1.0) mg/dL AST 11 (5-31) U/L ALT 20 (0-31) U/L Alkaline Phosphatase 128 H (39-117) U/L Troponin I High Sens (<3.5-17.0) ng/L B-Natriuretic Peptide (<100) pg/mL Total Protein 6.5 (6.5-8.0) g/dL Albumin 3.7 (3.5-5.0) g/dL COVID-19 (KRIS) (Negative) COVID-19 Clin Com Influenza Type A (SUKI) (Negative) Influenza Type B (SUKI) (Negative) Influenza A & B Note 06/30/22 06/30/22 06/30/22 Range/Units 08:59 08:59 08:59 WBC (4.8-10.8) X10*3/uL RBC (4.20-5.50) X10*6/uL Hgb (12.0-16.0) g/dl Hct (37.0-47.0) % MCV (80.0-98.0) fL MCH (27.0-33.0) pg MCHC (31.0-35.0) g/dl RDW (11.0-16.0) % Plt Count (160-400) X10*3/uL MPV (9.4-12.3) fL Immature Gran % (Auto) (0.0-0.4) % Neut % (Auto) (45-73) % Lymph % (Auto) (20-40) % [place] % (Auto) (2-11) % Eos % (Auto) (0-4) % Baso % (Auto) (0-2) % Lymph # (Auto) (1.2-4.9) X10*3/uL [place] # (Auto) (0.1-1.2) X10*3/uL Eos # (Auto) (0.0-0.4) X10*3/uL Baso # (Auto) (0.0-0.2) X10*3/uL Abs Immat Gran (auto) (0.00-0.03) X10*3/uL Absolute Neuts (auto) (2.0-8.3) x10*3/uL Absolute Nucleated RBC (0.0-0.012) X10*3/uL Nucleated RBC % (auto) (0.0-0.2) /100WBC PT (10.0-13.1) SEC INR (0.9-1.1) VBG pH (7.32-7.43) VBG pCO2 mmHg VBG pO2 mmHg VBG HCO3 (22-26) mmol/L VBG O2 Saturation % VBG Base Excess mmol/L Sodium (135-145) mmol/L Potassium (3.3-5.1) mmol/L Chloride (96-108) mmol/L Carbon Dioxide (22-29) mmol/L Anion Gap (12-20) BUN (9-16) mg/dL Creatinine (0.5-1.4) mg/dL Estim Creat Clear Calc Estimated GFR Random Glucose (60-115) mg/dL Lactic Acid 1.2 (0.5-2.0) mmol/L Calcium (8.4-10.2) mg/dL Total Bilirubin (0.0-1.0) mg/dL AST (5-31) U/L ALT (0-31) U/L Alkaline Phosphatase (39-117) U/L Troponin I High Sens 46.0 H (<3.5-17.0) ng/L B-Natriuretic Peptide 561 H (<100) pg/mL Total Protein (6.5-8.0) g/dL Albumin (3.5-5.0) g/dL COVID-19 (KRIS) (Negative) COVID-19 Clin Com Influenza Type A (SUKI) (Negative) Influenza Type B (SUKI) (Negative) Influenza A & B Note 06/30/22 06/30/22 06/30/22 Range/Units 09:04 09:45 09:45 WBC (4.8-10.8) X10*3/uL RBC (4.20-5.50) X10*6/uL Hgb (12.0-16.0) g/dl Hct (37.0-47.0) % MCV (80.0-98.0) fL MCH (27.0-33.0) pg MCHC (31.0-35.0) g/dl RDW (11.0-16.0) % Plt Count (160-400) X10*3/uL MPV (9.4-12.3) fL Immature Gran % (Auto) (0.0-0.4) % Neut % (Auto) (45-73) % Lymph % (Auto) (20-40) % [place] % (Auto) (2-11) % Eos % (Auto) (0-4) % Baso % (Auto) (0-2) % Lymph # (Auto) (1.2-4.9) X10*3/uL [place] # (Auto) (0.1-1.2) X10*3/uL Eos # (Auto) (0.0-0.4) X10*3/uL Baso # (Auto) (0.0-0.2) X10*3/uL Abs Immat Gran (auto) (0.00-0.03) X10*3/uL Absolute Neuts (auto) (2.0-8.3) x10*3/uL Absolute Nucleated RBC (0.0-0.012) X10*3/uL Nucleated RBC % (auto) (0.0-0.2) /100WBC PT (10.0-13.1) SEC INR (0.9-1.1) VBG pH 7.34 (7.32-7.43) VBG pCO2 39 mmHg VBG pO2 60 mmHg VBG HCO3 21 L (22-26) mmol/L VBG O2 Saturation 86.0 % VBG Base Excess -3.7 mmol/L Sodium (135-145) mmol/L Potassium (3.3-5.1) mmol/L Chloride (96-108) mmol/L Carbon Dioxide (22-29) mmol/L Anion Gap (12-20) BUN (9-16) mg/dL Creatinine (0.5-1.4) mg/dL Estim Creat Clear Calc Estimated GFR Random Glucose (60-115) mg/dL Lactic Acid (0.5-2.0) mmol/L Calcium (8.4-10.2) mg/dL Total Bilirubin (0.0-1.0) mg/dL AST (5-31) U/L ALT (0-31) U/L Alkaline Phosphatase (39-117) U/L Troponin I High Sens (<3.5-17.0) ng/L B-Natriuretic Peptide (<100) pg/mL Total Protein (6.5-8.0) g/dL Albumin (3.5-5.0) g/dL COVID-19 (KRIS) Negative (Negative) COVID-19 Clin Com See Note Influenza Type A (SUKI) Negative (Negative) Influenza Type B (SUKI) Negative (Negative) Influenza A & B Note See Note Independent Interpretation I performed an independent interpretation of an: EKG Interpretation: Sinus tachycardia, HR-142, no STEMI, ST and T-wave abnormalities, IA/QRS/QTC is within normal limits. Radiology Impression Radiologist Impression: My interpretation is in agreement with radiology's impression of the imaging study. External Record Review External record reviewed: Inpatient record, Outpatient record and Prior outpatient labs Chronic Conditions Patient?s care impacted by: Diabetes and Hypertension COPD Critical Care Time Critical Care Time Critical Care Time: Yes Total Critical Care Time: 60 Attestation: I personally attest to this time spent taking care of the patient. Discharge Plan Discharge Clinical Impression: Acute respiratory failure, CHF exacerbation, COPD (chronic obstructive pulmonary disease) Patient Disposition: Admitted As Inpatient
[2022-06-30 09:30] LABS: B Type Natriuretic Peptide 561 pg/mL (<100)
[2022-06-30 09:32] LABS: Lactic Acid 1.2 mmol/L (0.5-2.0)
[2022-06-30 09:36] LABS: Alanine Aminotransferase 20 U/L (0-31); Albumin Level 3.7 g/dL (3.5-5.0); Alkaline Phosphatase 128 U/L (39-117); Anion Gap 11 (12-20); Aspartate Amino Transferase 11 U/L (5-31); Bilirubin Total 0.4 mg/dL (0.0-1.0); Blood Urea Nitrogen 19 mg/dL (9-16); Calcium 8.9 mg/dL (8.4-10.2); Carbon Dioxide 25 mmol/L (22-29); Chloride 105 mmol/L (96-108); Creatinine Clr Calc Pharmacy 55.4; Estimated Glomerular Filt Rate 51; Glucose Random 219 mg/dL (60-115); Potassium 5.4 mmol/L (3.3-5.1); Sodium 136 mmol/L (135-145); Total Protein 6.5 g/dL (6.5-8.0)
[2022-06-30 10:26] LABS: COVID-19 Test Negative (Negative); IDNOW Serial# 9DB6401D; IDNOW Serial# BCCEAD1C; Influenza A Negative (Negative); Influenza B2 Negative (Negative)
--- NOTE | 2022-06-30 11:48 | P.HPHOSP_ITS ---
History of Present Illness Date of Service: 06/30/22 Attending physician on admission: Uriel Giron Chief Complaint: SOB Pt is a 67-year-old female with a PMH significant for? who presents to the ED with? The ED patient is tachycardic up to 140 tachypneic up to 28, and hypertensive at 170/95. Rescue BiPAP was attempted, however patient could not tolerate due to claustrophobia. Labs were significant for leukocytosis of 12.5, H&H 11.1/34.1, potassium of 5.4, random glucose of 219, troponin 46.0, BNP of 561. Patient tested negative for COVID, influenza type A and B, RSV. EKG demonstrated sinus tachycardia and T-wave inversions in inferior leads. In the ED labs were significant for CXR showed CT? EKG demonstrated Pt was treated with Pt will be admitted to the hospital [facility] Medical History CAD (coronary artery disease) Cervical cancer screening CKD (chronic kidney disease) COPD (chronic obstructive pulmonary disease) Diabetes High cholesterol Hypothyroidism Post-menopausal Screening for breast cancer Family History Mother Diabetes CAD (coronary artery disease) Surgical History Hx of coronary artery bypass graft S/P cardiac catheterization Social History Housing: House Alcohol intake: never Patient Tobacco Use Status: Current everyday Tobacco user Tobacco use type: Cigarette Cigarettes Per Day: 7 Years Smoked: 40+ years Smoked in Last 30 Days: Yes Use of substances other than those prescribed or required for medical reasons: No Advance Directives: Yes Advance Directives Information Provided: No Advance Directives on File: No service: No Current occupational status: disabled Meds Allergies Allergy/AdvReac Type Severity Reaction Status Date / Time Penicillins Allergy Mild UNKNOWN Verified 06/30/22 08:47 buprenorphine [Suboxone] Allergy Unknown unknown Verified 06/30/22 08:47 naloxone [Suboxone] Allergy Unknown unknown Verified 06/30/22 08:47 Home Medications Medication Instructions Recorded Confirmed Last Taken Type aspirin 81 mg chewable tablet 1 tab PO DAILY 02/12/20 02/24/22 11/30/20 History lorazepam 0.5 mg tablet 0.5 mg PO DAILY PRN anxiety 02/12/20 02/24/22 Unknown History albuterol sulfate 90 mcg/actuation 2 puff PO Q6H PRN Wheezing 12/03/20 02/24/22 Unknown History aerosol inhaler atorvastatin 80 mg tablet 1 tab PO DAILY 12/03/20 02/24/22 11/30/20 History cetirizine 10 mg tablet 10 mg PO DAILY PRN Allergic 12/03/20 02/24/22 Unknown History Symptoms semaglutide 0.25 mg or 0.5 mg (2 mg subcut 05/27/21 02/24/22 Unknown History mg/1.5 mL) subcutaneous pen injector (Ozempic) trihexyphenidyl 2 mg tablet 1 - 2 mg PO DAILY 02/24/22 02/24/22 Unknown History clonazepam 0.5 mg tablet 1 tab PO BID PRN Anxiety 06/30/22 06/30/22 Unknown History levothyroxine 150 mcg tablet 1 tab PO DAILY 06/30/22 Unknown History Physical Exam Vital Signs and Narrative: Vital Signs: Last Vital Signs Temp 97.7 F 06/30/22 08:42 Pulse 139 H 06/30/22 08:51 Resp 20 06/30/22 08:51 BP 170/95 H 06/30/22 08:51 Pulse Ox 100 06/30/22 08:51 O2 Del Method 06/30/22 08:51 O2 Flow Rate 11 06/30/22 08:51 BMI result Body Mass Index 43.7 Results Labs 06/30/22 08:59 06/30/22 08:59 Labs: Laboratory Results - last 24 hr 06/30/22 06/30/22 06/30/22 08:59 08:59 08:59 MCV 96.9 MCH 31.5 MCHC 32.6 RDW 13.7 Plt Count 287 MPV 11.8 Immature Gran % (Auto) 0.4 Neut % (Auto) 72.8 Lymph % (Auto) 16.3 L Mason % (Auto) 6.1 Eos % (Auto) 3.6 Baso % (Auto) 0.8 Lymph # (Auto) 2.0 Mason # (Auto) 0.8 Eos # (Auto) 0.5 H Baso # (Auto) 0.1 Abs Immat Gran (auto) 0.05 H Absolute Neuts (auto) 9.1 H Absolute Nucleated RBC 0.000 Nucleated RBC % (auto) 0.0 PT 10.8 INR 0.9 VBG pH VBG pCO2 VBG pO2 VBG HCO3 VBG O2 Saturation VBG Base Excess Anion Gap 11 L Estim Creat Clear Calc 55.4 Estimated GFR 51 Random Glucose 219 H Lactic Acid Calcium 8.9 D Total Bilirubin 0.4 AST 11 ALT 20 Alkaline Phosphatase 128 H Troponin I High Sens B-Natriuretic Peptide Total Protein 6.5 Albumin 3.7 COVID-19 (KRIS) COVID-19 Clin Com Influenza Type A (SUKI) Influenza Type B (SUKI) Influenza A & B Note 06/30/22 06/30/22 06/30/22 08:59 08:59 08:59 MCV MCH MCHC RDW Plt Count MPV Immature Gran % (Auto) Neut % (Auto) Lymph % (Auto) Mason % (Auto) Eos % (Auto) Baso % (Auto) Lymph # (Auto) Mason # (Auto) Eos # (Auto) Baso # (Auto) Abs Immat Gran (auto) Absolute Neuts (auto) Absolute Nucleated RBC Nucleated RBC % (auto) PT INR VBG pH VBG pCO2 VBG pO2 VBG HCO3 VBG O2 Saturation VBG Base Excess Anion Gap Estim Creat Clear Calc Estimated GFR Random Glucose Lactic Acid 1.2 Calcium Total Bilirubin AST ALT Alkaline Phosphatase Troponin I High Sens 46.0 H B-Natriuretic Peptide 561 H Total Protein Albumin COVID-19 (KRIS) COVID-19 Clin Com Influenza Type A (SUKI) Influenza Type B (SUKI) Influenza A & B Note 06/30/22 06/30/22 06/30/22 09:04 09:45 09:45 MCV MCH MCHC RDW Plt Count MPV Immature Gran % (Auto) Neut % (Auto) Lymph % (Auto) Mason % (Auto) Eos % (Auto) Baso % (Auto) Lymph # (Auto) Mason # (Auto) Eos # (Auto) Baso # (Auto) Abs Immat Gran (auto) Absolute Neuts (auto) Absolute Nucleated RBC Nucleated RBC % (auto) PT INR VBG pH 7.34 VBG pCO2 39 VBG pO2 60 VBG HCO3 21 L VBG O2 Saturation 86.0 VBG Base Excess -3.7 Anion Gap Estim Creat Clear Calc Estimated GFR Random Glucose Lactic Acid Calcium Total Bilirubin AST ALT Alkaline Phosphatase Troponin I High Sens B-Natriuretic Peptide Total Protein Albumin COVID-19 (KRIS) Negative COVID-19 Clin Com See Note Influenza Type A (SUKI) Negative Influenza Type B (SUKI) Negative Influenza A & B Note See Note Imaging Radiologist's Impressions: Impressions Chest X-Ray 06/30/22 09:31 IMPRESSION: Subtle patchy airspace opacities noted bilaterally. Findings are nonspecific but may represent a viral infiltrate. Assessment and Plan Plan Elevated troponin [id number] diabetes Morbid obesity Time Spent With Patient Time: Total time managing care of this patient today ____ minutes.
[2022-06-30 11:54] LABS: Anion Gap 15 (12-20); Blood Urea Nitrogen 21 mg/dL (9-16); Calcium 8.8 mg/dL (8.4-10.2); Carbon Dioxide 22 mmol/L (22-29); Chloride 103 mmol/L (96-108); Creatinine Clr Calc Pharmacy 47.4; Estimated Glomerular Filt Rate 43; Glucose Random 273 mg/dL (60-115); Potassium 5.8 mmol/L (3.3-5.1); Sodium 134 mmol/L (135-145)
[2022-06-30 12:02] LABS: Troponin-I High Sensitivity 78.7 ng/L (<3.5-17.0)
[2022-06-30 12:29] LABS: Magnesium 1.5 mg/dL (1.6-2.6)
[2022-06-30] MEDS: Metoprolol Tartrate 5 MG/5 ML VIAL 2.5 MG IVPUSH (12:29)
--- NOTE | 2022-06-30 12:33 | PC.NURSE ---
pt reports feeling better, breathing has improved pt's still having expiatory wheezing through out but no more audible wheezing at this time, pt is now in a-fib was not in a-fib upon the arrival, hr at 126-123. pt refusing to stay at the hospital dr chua and this rn attempting to explain why its not a good idea, pt decreased on her oxygen from 11L top 7l and sating at 98-96%
[2022-06-30 12:56] LABS: Partial Thromboplastin Time 43.1 SEC (26.0-36.4)
[2022-06-30] MEDS: Furosemide 40 MG/4 ML VIAL IVPUSH (13:06)
[2022-06-30] MEDS: Magnesium Sulfate/H2O 2 GM/50 ML PIGGYBACK IV (13:06)
[2022-06-30] MEDS: Metoprolol Tartrate 5 MG/5 ML VIAL IVPUSH ×2 (13:07→16:10)
[2022-06-30] MEDS: Apixaban 5 MG TABLET PO (13:07)
--- NOTE | 2022-06-30 13:25 | PHA.MEDREC ---
Pharmacy Consult ? Medication Reconciliation Pharmacy has completed the medication reconciliation. Patient didn't know med list but was able to identify which meds she takes based on claim history. She states she stopped ozempic due to a lump that formed at the same time she started it. She also says she takes a vitamin b but doesn't know which one or how much so it was left off of med rec. Clarified with patient she is using levalbuterol for rescue inhaler because claim history also reflects albuterol. She also states recent increases in levothyroxine and lisinopril. These are reflected in claim history and updated appropriately in expanse.
[2022-06-30] MEDS: Nitroglycerin 2 % Oint 1 GM Packet 0.5 INCH TRANSDERMA (15:46)
--- NOTE | 2022-06-30 16:00 | MHC.EDTECH ---
THIS PCT ASSUMED CARE OF PT AT 1500 ,ROUNDING DONE ,VITALS SIGN TAKEN ,PT SITTING UP ,PT AT BEDSIDE .
--- NOTE | 2022-06-30 16:37 | MHC.EDTECH ---
PT REFUSING REPEATED LABS ,MD SYKES AND VERNON GAMINO AWARE .
--- NOTE | 2022-06-30 17:44 | PC.NURSE ---
Pt aox3. Breaths are labored with audible wheezes during inspirations and expirations. Family at bedside. Pt has made multiple request to leave against medical advise. Pt was currently on 4L o2 via NC and removed NC. Refuses to have o2 measured at this time and requests to leave. Multiple attempts and education provided to pt regarding risk of leaving AMA by this nurse, Dr. Nicole and now Dr. Milton. Pt self removed IV line. Pt states having oxygen at home. MD at bedside.
--- NOTE | 2022-06-30 19:01 | PC.NURSE ---
Discharge instructions reviewed with pt. Pt signed AMA form and verbalizes understanding discharge instructions and risk of leaving AMA.
--- NOTE | 2022-06-30 19:02 | PC.NURSE ---
Pt refused vital signs before discharge.
== END 2022-06-30 19:00 | disposition left against medical advice (07) ==
PROVIDERS: Student in an Organized Health Care Education/Training Program; Emergency Provider Emergency Medicine
DX: J96.00 Acute respiratory failure, unspecified whether with hypoxia or hypercapnia (principal); I50.9 Heart failure, unspecified; J44.9 Chronic obstructive pulmonary disease, unspecified; Z20.822 Contact with and (suspected) exposure to COVID-19; Z20.828 Contact with and (suspected) exposure to other viral communicable diseases; Z79.899 Other long term (current) drug therapy
CPT/HCPCS: 36415; 71045; 80048; 80053; 82803; 83605; 83735; 83880; 84484; 85025; 85610; 85730; 87040; 87502; 87635; 93005; 94640; 96365; 96366; 96375; 96376; 99285; J1940; J2930; J3010; J3475

== ENCOUNTER → 2022-07-04 15:04 | Outpatient (BNVA) | payer MEDICARE, MEDICAID, SELFPAY | PROVIDERS: Visit Provider Internal Medicine Cardiovascular Disease | DX: I11.0 Hypertensive heart disease with heart failure (principal); I50.9 Heart failure, unspecified; R06.09 Other forms of dyspnea; J44.9 Chronic obstructive pulmonary disease, unspecified | CPT/HCPCS: 99212 ==

== ENCOUNTER → 2022-07-21 13:26 | Outpatient (BNVA) | payer MEDICARE, MEDICAID, SELFPAY | PROVIDERS: Visit Provider Nurse Practitioner Family | DX: I25.10 Atherosclerotic heart disease of native coronary artery without angina pectoris (principal); I50.9 Heart failure, unspecified; I48.91 Unspecified atrial fibrillation; J96.00 Acute respiratory failure, unspecified whether with hypoxia or hypercapnia; E78.5 Hyperlipidemia, unspecified; J44.1 Chronic obstructive pulmonary disease with (acute) exacerbation; Z95.1 Presence of aortocoronary bypass graft | CPT/HCPCS: 99212 ==

== ENCOUNTER 2022-07-22 10:30 | Emergency (ER) | payer MEDICARE, MEDICAID, SELFPAY ==
--- NOTE | ~2022-07-22 | XR_ITS ---
EXAMINATION: XR CHEST CLINICAL INFORMATION: Shortness of breath. COMPARISON: 06/30/2022 TECHNIQUE: Frontal view of the chest was obtained. FINDINGS: Sternal wires are in place. Numerous surgical clips overlie the chest. Cardiac silhouette is at the limits of normal in size. Calcific atherosclerosis is noted in the thoracic aorta. There are small bilateral pleural effusions. Associated bibasilar opacities likely correspond atelectasis. Pulmonary venous congestion. No appreciable interstitial edema. No acute osseous findings. Mild osteoarthritis at the acromioclavicular joints. XR/XR chest 1V IMPRESSION: Small bilateral pleural effusions with associated bibasilar opacities, likely atelectasis. Mild pulmonary venous congestion. No appreciable pulmonary edema.
[2022-07-22 10:42] VITALS: BP 137/75; PULSE 80; RESP 22; TEMP 36.4; O2SAT 98; BMI 42.3
--- NOTE | 2022-07-22 10:51 | ECG_ITS ---
Test Reason : sob Blood Pressure : / mmHG Vent. Rate : 081 BPM Atrial Rate : 312 BPM P-R Int : 000 ms QRS Dur : 098 ms QT Int : 350 ms P-R-T Axes : 084 062 181 degrees QTc Int : 406 ms Atrial flutter with variable A-V block Cannot rule out Anterior infarct (cited on or before 30-DEC-2017) ST & T wave abnormality, consider lateral ischemia Abnormal ECG When compared with ECG of 30-JUN-2022 12:22, Atrial flutter has replaced Atrial fibrillation ST elevation has replaced ST depression in Inferior leads ST no longer depressed in Lateral leads Referred By: Generic ED Physician Electronically Signed By:PEPE MIDDLETON MD
--- NOTE | 2022-07-22 12:14 | ED.GENADULT ---
HPI - General Adult General Chief complaint: Dyspnea Stated complaint: abd labs Time Seen by Provider: 07/22/22 11:05 Source: patient Mode of arrival: ambulatory History of Present Illness HPI narrative: This is a 67-year-old female with multiple medical comorbidities who is not great at taking her necessary medications. I evaluated this patient on 06/30 and at that time she adamantly declined any admission. She again states to me this morning that she will not be agreeable to being admitted. She adamantly states that the only reason that she is here is because she had promised the provider from Cardiology yesterday. She denies any complaints of chest pain/palpitations/new shortness of breath stating that she is always like this . She states that the only issue that she has is that her legs keep blowing up . When I discussed with her the importance of the water pill she nods her head and states yes I take it when I need it. She did finally machine operator picker her prescription for Eliquis today and took the 1st pill this morning in my presence. Related Data Home Medications Medication Instructions Recorded Confirmed aspirin 81 mg chewable tablet 1 tab PO DAILY 02/12/20 07/21/22 lorazepam 0.5 mg tablet 0.5 mg PO DAILY PRN anxiety 02/12/20 07/21/22 atorvastatin 80 mg tablet 1 tab PO DAILY 12/03/20 07/21/22 cetirizine 10 mg tablet 10 mg PO DAILY PRN Allergic 12/03/20 07/21/22 Symptoms fluticasone fur. 200 mcg-umeclid 1 inh inhalation DAILY 06/30/22 07/21/22 62.5 mcg-vilant 25 mcg inhalat.powder (Trelegy Ellipta) levothyroxine 150 mcg tablet 1 tab PO DAILY 06/30/22 07/21/22 lisinopril 5 mg tablet 1 tab PO DAILY 06/30/22 07/21/22 Previous Rx's Medication Instructions Recorded blood-glucose meter (FreeStyle #1 ea 09/30/20 Lite Meter kit) glipizide 5 mg tablet 5 mg PO DAILY #90 tabs 10/22/20 lancets 28 gauge (FreeStyle #100 ea 12/05/20 Lancets) blood sugar diagnostic (FreeStyle #100 ea 12/08/20 Lite Strips) cane #1 ea 12/08/20 levalbuterol tartrate 45 2 inh inhalation Q6H PRN shortness 12/28/20 mcg/actuation aerosol inhaler of breath or wheezing #15 grams (Xopenex HFA) ergocalciferol (vitamin D2) 1,250 1,250 mcg PO MO #12 caps 01/22/21 mcg (50,000 unit) capsule metoprolol tartrate 50 mg tablet 50 mg PO BID #180 caps 01/02/22 albuterol sulfate 1.25 mg/3 mL 1.25 mg (3 mL) inhalation QID PRN 07/04/22 solution for nebulization shortness of breath or wheezing #90 mL doxycycline hyclate 100 mg tablet 100 mg PO BID 7 days #14 tabs 07/04/22 furosemide 40 mg tablet (Lasix) 40 mg PO DAILY #60 tabs 07/04/22 nebulizers (AeroEclipse II #1 ea 07/04/22 Nebulizer) prednisone 50 mg tablet 50 mg PO DAILY #7 tabs 07/04/22 apixaban 5 mg tablet (Eliquis) 5 mg PO BID #60 tabs 07/21/22 Allergies Allergy/AdvReac Type Severity Reaction Status Date / Time Penicillins Allergy Mild UNKNOWN Verified 07/21/22 13:38 buprenorphine [Suboxone] Allergy Unknown unknown Verified 07/21/22 13:38 naloxone [Suboxone] Allergy Unknown unknown Verified 07/21/22 13:38 Review of Systems Review of Systems: Pertinent positives and negatives as stated in HPI PMFSH Past Medical History Source: nursing notes reviewed Medical History CAD (coronary artery disease) Cervical cancer screening CKD (chronic kidney disease) COPD (chronic obstructive pulmonary disease) Diabetes High cholesterol Hypothyroidism Post-menopausal Screening for breast cancer Surgical History Hx of coronary artery bypass graft S/P cardiac catheterization Family History Family History Mother Diabetes CAD (coronary artery disease) Social History Social History Housing: House Alcohol intake: never Patient Tobacco Use Status: Current everyday Tobacco user Tobacco use type: Cigarette Cigarettes Per Day: 7 Years Smoked: 40+/- years Advance Directives: No Advance Directives Information Provided: No service: No Current occupational status: disabled Physical Exam ED Vital Signs: Vital Signs - 24 hr 07/22/22 10:42 Temperature 97.5 F Pulse Rate 80 Respiratory Rate 22 H Blood Pressure 137/75 Pulse Oximetry 98 Oxygen Delivery Method Room Air BMI result Body Mass Index 42.3 VITAL SIGNS: Reviewed. GENERAL: Chronically ill, well nourished, in no acute distress. HEAD: Normocephalic/atraumatic EYES: PERRLA, EOMI LUNGS: Bibasilar rales, no wheeze/crackles, no retractions SpO2<98> room air CARDIOVASCULAR: Regular rate and rhythm without noted murmurs, no JVD but 2+ lower extremity edema. ABDOMEN: Soft, non-tender, non-distended with bowel sounds. MUSCULOSKELETAL: No tenderness, deformities, or effusions noted on gross inspection. EXTREMITIES: No cyanosis, clubbing or edema. SKIN: Inspection of the skin reveals no rashes NEUROLOGIC: Alert and oriented x 4. Strength and sensation to light touch were grossly intact x 4. Medical Decision Making Medical Decision Making MDM Narrative: 1200: 67-year-old female with whom I have had a very clear an extensive discussion regarding the risks and benefits regarding her workup and recommendations for admission depending on results. She has adamantly declined admission, this is consistent with her prior stance. Clinically this patient appears significantly improved in comparison to my evaluation of her on 06/30. I did review the chest x-ray which demonstrates CHF and likely a component of atelectasis. I will be giving patient 40 mg of oral Lasix as well as 50 mg of Lopressor orally. Patient did take her initial dose of Eliquis in front of me and she was instructed to continue taking this medication twice a day as it was very important. I reviewed all of her vital signs at this time, blood pressure is stable, EKG demonstrates atrial flutter 3:1 with good rate control, oxygenating well on room air. I had an extensive conversation with Shu Riley regarding the best approach to facilitate patient compliance and my recommendation was for outpatient labs to be ordered and I would arrange for coordination the patient to the outpatient laboratory area so that this lab work is drawn as patient has clearly stated she will not stay for the results and will not be admitted. This was agreed on. As I did not feel that patient would take her water pill at home I gave her the medication here in the emergency room. Patient is otherwise discharged home in hemodynamically stable condition with what appears to me congestive heart failure that has not resulted in hypoxia. Differential Diagnosis Please see the discussion above Independent Interpretation I performed an independent interpretation of an: EKG Interpretation: Atrial flutter, HR-81, no STEMI, QRS/QTC are within normal limits Radiology Impression Radiologist Impression: My interpretation is in agreement with radiology's impression of the imaging studies. Discharge Plan Discharge Clinical Impression: Atrial flutter, CHF (congestive heart failure) Patient Disposition: Home, Self-Care Instructions: Heart Failure (ED), Atrial Flutter (ED), Heart Healthy Diet (ED), Blood Thinners (ED) Additional Instructions: 1. You must start taking all of your home medications, especially your water pill (Lasix/furosemide) and blood thinner (Eliquis). 2. You must follow-up with your primary care doctor as well as Shu Riley. Return to the emergency room for any worsening of symptoms. Prescriptions: No Action (DME) blood-glucose meter [FreeStyle Lite Meter] Kit See Rx Instructions .ROUTE .MEDSUPPLY Qty: 1 0RF Rx Instructions: Test Daily glipizide 5 mg tablet 5 mg PO DAILY Qty: 90 1RF (DME) lancets [FreeStyle Lancets] 28 gauge misc See Rx Instructions .ROUTE .MEDSUPPLY Qty: 100 0RF Rx Instructions: Daily (DME) FreeStyle Lite Strips Strip See Rx Instructions .Route Qty: 100 0RF Rx Instructions: test twice a day (DME) cane Device See Rx Instructions .Route Qty: 1 0RF Rx Instructions: As directed levalbuterol tartrate [Xopenex HFA] 45 mcg/actuation HFA aerosol inhaler 2 inh inhalation Q6H PRN (Reason: shortness of breath or wheezing) Qty: 15 0RF ergocalciferol (vitamin D2) 1,250 mcg (50,000 unit) capsule 1,250 mcg PO MO Qty: 12 1RF metoprolol tartrate 50 mg tablet 50 mg PO BID Qty: 180 1RF atorvastatin 80 mg tablet 1 tab PO DAILY cetirizine 10 mg Tablet 10 mg PO DAILY PRN (Reason: Allergic Symptoms) levothyroxine 150 mcg tablet 1 tab PO DAILY Trelegy Ellipta 200-62.5-25 mcg blister with device 1 inh inhalation DAILY lisinopril 5 mg tablet 1 tab PO DAILY aspirin 81 mg tablet,chewable 1 tab PO DAILY lorazepam 0.5 mg tablet 0.5 mg PO DAILY PRN (Reason: anxiety) Eliquis 5 mg tablet 5 mg PO BID Qty: 60 3RF (DME) nebulizers [AeroEclipse II Nebulizer] Misc See Rx Instructions .Route Qty: 1 0RF Rx Instructions: As directed albuterol sulfate 1.25 mg/3 mL solution for nebulization 1.25 mg inhalation QID PRN (Reason: shortness of breath or wheezing) Qty: 90 3RF prednisone 50 mg tablet 50 mg PO DAILY Qty: 7 0RF doxycycline hyclate 100 mg tablet 100 mg PO BID 7 Days Qty: 14 0RF furosemide [Lasix] 40 mg tablet 40 mg PO DAILY Qty: 60 0RF Referrals: Shu Riley, REGULATORY CONSULTANT-C [Nurse Practitioner] - Sebastián Azul MD [Physician] -
[2022-07-22 12:27] VITALS: BP 124/52; PULSE 79; RESP 18; O2SAT 96
[2022-07-22] MEDS: Furosemide 40 MG TABLET PO (12:30)
[2022-07-22] MEDS: Metoprolol Tartrate 50 MG TABLET PO (12:30)
== END 2022-07-22 12:57 | disposition home or self-care (01) ==
PROVIDERS: Emergency Provider Student in an Organized Health Care Education/Training Program
DX: I48.92 Unspecified atrial flutter (principal); R06.02 Shortness of breath; R79.89 Other specified abnormal findings of blood chemistry; I50.9 Heart failure, unspecified; Z79.899 Other long term (current) drug therapy
CPT/HCPCS: 36415; 71045; 80048; 83735; 83880; 93005; 99283; 99284

== ENCOUNTER 2022-07-22 13:19 | Outpatient (REF) | payer MEDICARE, MEDICAID, SELFPAY ==
[2022-07-22 14:32] LABS: B Type Natriuretic Peptide 725 pg/mL (<100)
[2022-07-22 16:30] LABS: Anion Gap 18 (12-20); Blood Urea Nitrogen 59 mg/dL (9-16); Carbon Dioxide 25 mmol/L (22-29); Chloride 100 mmol/L (96-108); Estimated Glomerular Filt Rate 27; Glucose Random 210 mg/dL (60-115); Magnesium 1.8 mg/dL (1.6-2.6); Potassium 4.9 mmol/L (3.3-5.1); Sodium 138 mmol/L (135-145)
== END 2022-07-22 13:20 | disposition home or self-care (01) ==
LOC: HO.LAB 13:19
PROVIDERS: Visit Provider Nurse Practitioner Family
DX: Z13.89 Encounter for screening for other disorder (principal)
CPT/HCPCS: 36415; 80048; 83735; 83880

== ENCOUNTER 2022-08-04 09:23 | Inpatient (IN) | payer MEDICARE, MEDICAID, SELFPAY ==
[2022-08-04] VITALS (20 sets, daily range): BP systolic 114–146; BP diastolic 54–97; PULSE 98–137; RESP 14–25; TEMP 36.6–36.8; O2SAT 87–100; BMI 48.2
--- NOTE | ~2022-08-04 | XR_ITS ---
EXAMINATION: XR CHEST CLINICAL INFORMATION: Shortness of breath COMPARISON: 07/22/2022 TECHNIQUE: Frontal view of the chest was obtained. FINDINGS: Large body habitus. Cardiac silhouette is mildly enlarged, status post coronary artery bypass graft surgery. Sternotomy wires are intact. Nonspecific haziness of each hemithorax could represent layering of pleural effusions although unable to exclude any superimposed groundglass pulmonary opacities. The right lateral costophrenic sulcus remains blunted from the small pleural effusion. The persistent opacities of lower lung zones are probably from atelectasis. No significant improvement in these opacities since 07/22/2022. No pneumothorax or other significant change. XR/XR chest 1V IMPRESSION: * Cardiomegaly without overt pulmonary edema. * Small pleural effusions (right larger than left). * Persistent nonspecific opacities -likely atelectasis - within the lower lung zones.
--- NOTE | ~2022-08-04 | US_ITS ---
EXAMINATION: US RETROPERITONEAL LIMITED (RENAL ONLY) CLINICAL INFORMATION: Renal insufficiency. Acute on chronic renal insufficiency. COMPARISON: None available. TECHNIQUE: Sonographic imaging of the kidneys is performed. FINDINGS: RIGHT KIDNEY: 11.5 x 4.7 x 4.3 cm (SAG x AP x TRV). The kidney is normal in size, contour, and echogenicity. Renal cortical thickness is normal. No hydronephrosis, calculi or focal parenchymal lesions. LEFT KIDNEY: 11 x 5.4 x 4.2 cm (SAG x AP x TRV). The kidney is normal in size, contour, and echogenicity. Renal cortical thickness is normal. No calculi or hydronephrosis. 2 x 2.2 x 2.7 cm simple cyst of the interpolar area. No renal imaging follow-up is recommended for simple cysts. US/US renal BI IMPRESSION: The kidneys have normal echotexture. No acute sonographic abnormalities. No renal stones or hydronephrosis..
--- NOTE | 2022-08-04 07:00 | CA_ITS ---
Transthoracic Echocardiogram Patient (Last, First, Middle): Mercedes Negrete A Gender: Female Date of : 1955 Age: 67 Procedure Date: 08/04/2022 Procedure Type: Transthoracic Echocardiogram Location: ICU Height: 147.32 cm Weight: 108.41 kg BSA: 1.96 m2 Heart Rate: bpm BP: 93 / 72 mmHg Program Support Assistant: CHRISTIANO Referring MD: Bakari Barajas MD Symptoms: NSTEMI Study Quality: Technically Difficult, contrast Conclusions: - Normal left ventricular cavity size. There is mildly increased left ventricular wall thickness. The left ventricular systolic function is mild to moderately decreased. The visually estimated ejection fraction is between 35-40%. - The apical lateral and mid anterolateral segments are hypokinetic. Findings Left Ventricle Normal left ventricular cavity size. There is mildly increased left ventricular wall thickness. The left ventricular systolic function is mild to moderately decreased. The visually estimated ejection fraction is between 35-40%. There is evidence of regional wall motion abnormalities. Diastolic function is indeterminate on the basis of available data. Wall Motion Rest Echo Findings The apical lateral and mid anterolateral segments are hypokinetic. Prior Study Comparison Changes noted compared to prior study dated: 12/14/2020. EF 35 to 40, anterolateral wall is hypokinetic. Measurements 2D Linear Measurements IVSd: 1.21 0.6-0.9/0.6-1.0 cm LVIDd: 4.64 3.9-5.3/4.2-5.9 cm LVIDd Index: 2.37 2.4-3.2/2.2-3.1 cm/m2 LVIDs: 3.78 2.0-3.6 cm LVPWd: 1.00 0.7-1.1 cm LV Mass: 230.38 67-162/88-224 g LV Mass Index: 117.54 43-95/49-115 g/m2 LVOT Diam: 2.00 3.0+(-)1.3 cm 2D Systolic Function EF 4C: 37.70 >55% EF 2C: 27.30 >55% EF BiP: 31.70 >55% LVOT LVOT Pk Dave: 0.80 LVOT Mn Dave: 0.57 LVOT VTI: 0.15 LVOT Pk Grad: 3.00 LVOT Mn Grad: 1.00 LVOT Diam: 2.00 LVOT Area: 3.14 Updated in Other Vendor System with Status of Final Sebastián Azul MD electronically signed on 08/04/2022 6:26:45 PM with status of Final
--- NOTE | 2022-08-04 09:32 | ECG_ITS ---
Test Reason : chest pain Blood Pressure : / mmHG Vent. Rate : 124 BPM Atrial Rate : 124 BPM P-R Int : 136 ms QRS Dur : 104 ms QT Int : 320 ms P-R-T Axes : 000 087 216 degrees QTc Int : 459 ms Atrial flutter with 2 to 1 block Possible Lateral infarct (cited on or before 30-DEC-2017) ST & T wave abnormality, consider inferior ischemia Abnormal ECG When compared with ECG of 22-JUL-2022 10:55, Vent. rate has increased BY 43 BPM Referred By: Franki Bocanegra Electronically Signed By:PEPE MIDDLETON MD
--- NOTE | 2022-08-04 09:43 | ED.SOB ---
HPI - SOB/Dyspnea General Chief Complaint: Dyspnea Stated Complaint: SOB X'S DAYS,INH NOT WORKING,89% RA PER EMS Time Seen by Provider: 08/04/22 09:31 Source: patient and EMS Mode of arrival: EMS History of Present Illness HPI Narrative: This is 67 years old of female with history of COPD brought in by ambulance in acute respiratory distress, she arrived restless tachypneic a tachycardic. She was given Solu-Medrol a by the ladle builder along with the albuterol MD elicited complaint: shortness of breath Pertinent past history: COPD Onset (ago): day(s) (2) Timing: constant Severity: moderate Exacerbating factors: exertion Known history of: COPD Associated symptoms: denies other symptoms Related Data Home Medications Medication Instructions Recorded Confirmed aspirin 81 mg chewable tablet 1 tab PO DAILY 02/12/20 08/04/22 lorazepam 0.5 mg tablet 0.5 mg PO DAILY PRN anxiety 02/12/20 08/04/22 cetirizine 10 mg tablet 10 mg PO DAILY PRN Allergic 12/03/20 08/04/22 Symptoms fluticasone fur. 200 mcg-umeclid 1 inh inhalation DAILY 06/30/22 08/04/22 62.5 mcg-vilant 25 mcg inhalat.powder (Trelegy Ellipta) levothyroxine 150 mcg tablet 1 tab PO DAILY 06/30/22 08/04/22 glipizide 5 mg tablet 5 mg PO BID 08/04/22 08/04/22 lisinopril 2.5 mg tablet 2.5 mg PO DAILY 08/04/22 08/04/22 Previous Rx's Medication Instructions Recorded blood-glucose meter (FreeStyle #1 ea 09/30/20 Lite Meter kit) lancets 28 gauge (FreeStyle #100 ea 12/05/20 Lancets) blood sugar diagnostic (FreeStyle #100 ea 12/08/20 Lite Strips) cane #1 ea 12/08/20 levalbuterol tartrate 45 2 inh inhalation Q6H PRN shortness 12/28/20 mcg/actuation aerosol inhaler of breath or wheezing #15 grams (Xopenex HFA) ergocalciferol (vitamin D2) 1,250 1,250 mcg PO MO #12 caps 01/22/21 mcg (50,000 unit) capsule metoprolol tartrate 50 mg tablet 50 mg PO BID #180 caps 01/02/22 albuterol sulfate 1.25 mg/3 mL 1.25 mg (3 mL) inhalation QID PRN 07/04/22 solution for nebulization shortness of breath or wheezing #90 mL furosemide 40 mg tablet (Lasix) 40 mg PO DAILY #60 tabs 07/04/22 nebulizers (AeroEclipse II #1 ea 07/04/22 Nebulizer) apixaban 5 mg tablet (Eliquis) 5 mg PO BID #60 tabs 07/21/22 Allergies Allergy/AdvReac Type Severity Reaction Status Date / Time Penicillins Allergy Mild UNKNOWN Verified 07/21/22 13:38 buprenorphine [Suboxone] Allergy Unknown unknown Verified 07/21/22 13:38 naloxone [Suboxone] Allergy Unknown unknown Verified 07/21/22 13:38 Review of Systems Cardiovascular: Cardiovascular: Reports no additional cardiovascular complaints and Reports dyspnea Respiratory: Respiratory: Reports cough, Reports dyspnea and Reports wheezing Musculoskeletal: Musculoskeletal: Reports no additional musculoskeletal complaints Neurologic: Reports system reviewed and no additional complaints, except as documented Allergic/Immunologic: Allergic/Immunologic: Reports wheezing [facility] Past Medical History Medical History CAD (coronary artery disease) Cervical cancer screening CKD (chronic kidney disease) COPD (chronic obstructive pulmonary disease) Diabetes High cholesterol Hypothyroidism Post-menopausal Screening for breast cancer Surgical History Hx of coronary artery bypass graft S/P cardiac catheterization Family History Family History Mother Diabetes CAD (coronary artery disease) Social History Social History Housing: House Alcohol intake: never Patient Tobacco Use Status: Current everyday Tobacco user Tobacco use type: Cigarette Cigarettes Per Day: 7 Years Smoked: 40+/- years Smoked in Last 30 Days: No Use of substances other than those prescribed or required for medical reasons: No Advance Directives: No Advance Directives Information Provided: No Nutrition Risks: No Nutritional Risk service: No Current occupational status: disabled Physical Exam Vital Signs: Vital Signs: Last Vital Signs Temp 97.8 F 08/04/22 11:10 Pulse 109 H 08/04/22 12:38 Resp 14 08/04/22 12:38 BP 120/79 08/04/22 12:43 Pulse Ox 100 08/04/22 12:38 O2 Del Method High Flow Nasal C annula 08/04/22 12:38 O2 Flow Rate 40 08/04/22 12:18 Oxygen Flow Rate 6 08/04/22 09:30 BMI result Body Mass Index 48.2 Const: General: alert and acute distress moderate Nutritional Appearance: well nourished Orientation/consciousness: patient oriented x3 HEENT: Head: Yes normal to inspection Ears: hearing grossly normal bilaterally Face and sinus: Yes normal facial exam Neck: Neck: Yes normal visual inspection and Yes full ROM Chest: Chest palpation & inspection: normal inspection of the chest Resp: Effort & Inspection: respiratory distress and tachypneic Auscultation: rhonchi and wheezes Cardio: Jugular venous distension: no JVD Rate: tachycardic Rhythm: regular rhythm GI: Inspection: Yes normal to inspection Palpation (GI): Soft to palpation, not firm and nontender Skin: General skin exam: no rashes or lesions noted Rashes: no rashes Neuro: General: patient oriented x3 Course Reevaluation(s) Reevaluation #1: doing better clinical picture cw/DKA spoke with Carpet Cutter Lactic acid noted but secondary to albuterol and DKA low vomume status Time: 13:16 Reevaluation #2: sPOKE WITH MACHINE ERECTOR WELL dR SOOD Time: 13:22 Medications Administered Generic Name Dose Route Start Last Admin Trade Name Freq PRN Reason Stop Dose Admin Insulin Human Regular 100 unit in 100 mls @ 6 mls/hr 08/04/22 11:30 08/04/22 13:35 Myxredlin IVCONT 3 unit/hr .[id number] MIRNA 3 mls/hr Titration Protocol 6 UNIT/HR Lactated Ringer's 1,000 mls @ 100 mls/hr 08/04/22 11:45 08/04/22 13:36 Lr IVCONT 100 mls/hr .Q10H MIRNA Administration Discontinued Medications Generic Name Dose Route Start Last Admin Trade Name Freq PRN Reason Stop Dose Admin Fentanyl 25 mcg 08/04/22 09:34 08/04/22 09:46 Fentanyl Citrate/Pf 100 Mcg/2 Ml Vial EPIDURAL 08/04/22 09:35 25 mcg ONCE ONE Administration Protocol Doxycycline Hyclate 100 mg/ 250 mls @ 166.67 mls/hr 08/04/22 09:42 08/04/22 13:26 Sodium Chloride IV 08/04/22 11:11 Infused ONCE ONE Infusion Sodium Chloride 1,000 mls @ 999 mls/hr 08/04/22 11:15 08/04/22 13:27 Ns IVCONT 08/04/22 12:15 Infused .Q1H1M MIRNA Infusion Insulin Human Regular 10 unit 08/04/22 11:11 08/04/22 11:17 Insulin Regular, Human 100 Unit/Ml 3 Ml Vial IVPUSH 08/04/22 11:12 10 unit ONCE ONE Administration Ondansetron HCl 4 mg 08/04/22 09:34 08/04/22 09:45 Ondansetron Hcl 4 Mg/2 Ml Vial IVPUSH 08/04/22 09:35 4 mg ONCE ONE Administration Medical Decision Making Medical Decision Making [facility] Narrative: PATIENT PRESENTED WITH SHORTNESS OF BREATH TACHYPNEA, SHORTNESS OF BREATH AND TACHYPNEA WITH DRIVEN BY THE METABOLIC ACIDOSIS, PH IS CONSISTENT WITH DKA LOW BICARB ELEVATED ANION GAP. PATIENT WAS STARTED ON INSULIN BOLUS AND INSULIN DRIP, IV FLUIDS CASE WAS DISCUSSED WITH MODELING ANALYST Differential Diagnosis Differential Diagnoses: The differential diagnosis associated with the presentation includes DKA/PNEUMONIA/SEPSIS Admission/Observation Consideration of admission/observation: Escalation of care including admission/observation considered Consult Healthcare Provider SPOKE WITH ICU ATTENDING Lab Data [facility] Lab Attestation statement: I reviewed the patient's lab results. 08/04/22 10:31 08/04/22 10:31 Labs: Lab Results 08/04/22 08/04/22 08/04/22 Range/Units 09:56 10:31 10:31 WBC 15.2 H (4.8-10.8) X10*3/uL RBC 3.27 L (4.20-5.50) X10*6/uL Hgb 10.7 L (12.0-16.0) g/dl Hct 33.7 L (37.0-47.0) % MCV 103.1 H (80.0-98.0) fL MCH 32.7 (27.0-33.0) pg MCHC 31.8 (31.0-35.0) g/dl RDW 14.8 (11.0-16.0) % Plt Count 294 (160-400) X10*3/uL MPV 13.1 H (9.4-12.3) fL Immature Gran % (Auto) 1.4 H (0.0-0.4) % Neut % (Auto) 92.6 H (45-73) % Lymph % (Auto) 4.2 L (20-40) % [place] % (Auto) 1.6 L (2-11) % Eos % (Auto) 0.1 (0-4) % Baso % (Auto) 0.1 (0-2) % Lymph # (Auto) 0.6 L (1.2-4.9) X10*3/uL [place] # (Auto) 0.3 (0.1-1.2) X10*3/uL Eos # (Auto) 0.0 (0.0-0.4) X10*3/uL Baso # (Auto) 0.0 (0.0-0.2) X10*3/uL Abs Immat Gran (auto) 0.21 H (0.00-0.03) X10*3/uL Absolute Neuts (auto) 14.1 H (2.0-8.3) x10*3/uL Absolute Nucleated RBC 0.000 (0.0-0.012) X10*3/uL Nucleated RBC % (auto) 0.0 (0.0-0.2) /100WBC Smear Tech's Comments VERIFIED O2 Saturation 92.0 % ABG pH at Pt Temp 7.18 L* (7.35-7.45) ABG pCO2 at Pt Temp 43 (32-45) mmHg ABG pO2 at Pt Temp 87 (83-108) mmHg ABG HCO3 16 L (22-26) mmol/L ABG Base Excess (Actual) -10.9 mmol/L Sodium 126 L (135-145) mmol/L Potassium 7.1 H* D (3.3-5.1) mmol/L Chloride 90 L (96-108) mmol/L Carbon Dioxide 17 L (22-29) mmol/L Anion Gap 26 H (12-20) BUN 39 H (9-16) mg/dL Creatinine 2.53 H (0.5-1.4) mg/dL Estim Creat Clear Calc 22.9 Estimated GFR 19 POC Glucose (60-115) mg/dL Random Glucose 867 H* (60-115) mg/dL Lactic Acid (0.5-2.0) mmol/L Calcium 8.3 L D (8.4-10.2) mg/dL Total Bilirubin 2.2 H (0.0-1.0) mg/dL AST 92 H (5-31) U/L ALT 65 H (0-31) U/L Alkaline Phosphatase 182 H (39-117) U/L Troponin I High Sens (<3.5-17.0) ng/L B-Natriuretic Peptide (<100) pg/mL Total Protein 6.0 L (6.5-8.0) g/dL Albumin 3.7 (3.5-5.0) g/dL 08/04/22 08/04/22 08/04/22 Range/Units 10:31 10:31 10:31 WBC (4.8-10.8) X10*3/uL RBC (4.20-5.50) X10*6/uL Hgb (12.0-16.0) g/dl Hct (37.0-47.0) % MCV (80.0-98.0) fL MCH (27.0-33.0) pg MCHC (31.0-35.0) g/dl RDW (11.0-16.0) % Plt Count (160-400) X10*3/uL MPV (9.4-12.3) fL Immature Gran % (Auto) (0.0-0.4) % Neut % (Auto) (45-73) % Lymph % (Auto) (20-40) % [place] % (Auto) (2-11) % Eos % (Auto) (0-4) % Baso % (Auto) (0-2) % Lymph # (Auto) (1.2-4.9) X10*3/uL [place] # (Auto) (0.1-1.2) X10*3/uL Eos # (Auto) (0.0-0.4) X10*3/uL Baso # (Auto) (0.0-0.2) X10*3/uL Abs Immat Gran (auto) (0.00-0.03) X10*3/uL Absolute Neuts (auto) (2.0-8.3) x10*3/uL Absolute Nucleated RBC (0.0-0.012) X10*3/uL Nucleated RBC % (auto) (0.0-0.2) /100WBC Smear Tech's Comments O2 Saturation % ABG pH at Pt Temp (7.35-7.45) ABG pCO2 at Pt Temp (32-45) mmHg ABG pO2 at Pt Temp (83-108) mmHg ABG HCO3 (22-26) mmol/L ABG Base Excess (Actual) mmol/L Sodium (135-145) mmol/L Potassium (3.3-5.1) mmol/L Chloride (96-108) mmol/L Carbon Dioxide (22-29) mmol/L Anion Gap (12-20) BUN (9-16) mg/dL Creatinine (0.5-1.4) mg/dL Estim Creat Clear Calc Estimated GFR POC Glucose (60-115) mg/dL Random Glucose (60-115) mg/dL Lactic Acid 6.7 H* (0.5-2.0) mmol/L Calcium (8.4-10.2) mg/dL Total Bilirubin (0.0-1.0) mg/dL AST (5-31) U/L ALT (0-31) U/L Alkaline Phosphatase (39-117) U/L Troponin I High Sens > 3600.0 H* D (<3.5-17.0) ng/L B-Natriuretic Peptide 853 H (<100) pg/mL Total Protein (6.5-8.0) g/dL Albumin (3.5-5.0) g/dL 08/04/22 Range/Units 11:24 WBC (4.8-10.8) X10*3/uL RBC (4.20-5.50) X10*6/uL Hgb (12.0-16.0) g/dl Hct (37.0-47.0) % MCV (80.0-98.0) fL MCH (27.0-33.0) pg MCHC (31.0-35.0) g/dl RDW (11.0-16.0) % Plt Count (160-400) X10*3/uL MPV (9.4-12.3) fL Immature Gran % (Auto) (0.0-0.4) % Neut % (Auto) (45-73) % Lymph % (Auto) (20-40) % [place] % (Auto) (2-11) % Eos % (Auto) (0-4) % Baso % (Auto) (0-2) % Lymph # (Auto) (1.2-4.9) X10*3/uL [place] # (Auto) (0.1-1.2) X10*3/uL Eos # (Auto) (0.0-0.4) X10*3/uL Baso # (Auto) (0.0-0.2) X10*3/uL Abs Immat Gran (auto) (0.00-0.03) X10*3/uL Absolute Neuts (auto) (2.0-8.3) x10*3/uL Absolute Nucleated RBC (0.0-0.012) X10*3/uL Nucleated RBC % (auto) (0.0-0.2) /100WBC Smear Tech's Comments O2 Saturation % ABG pH at Pt Temp (7.35-7.45) ABG pCO2 at Pt Temp (32-45) mmHg ABG pO2 at Pt Temp (83-108) mmHg ABG HCO3 (22-26) mmol/L ABG Base Excess (Actual) mmol/L Sodium (135-145) mmol/L Potassium (3.3-5.1) mmol/L Chloride (96-108) mmol/L Carbon Dioxide (22-29) mmol/L Anion Gap (12-20) BUN (9-16) mg/dL Creatinine (0.5-1.4) mg/dL Estim Creat Clear Calc Estimated GFR POC Glucose > 600 H* (60-115) mg/dL Random Glucose (60-115) mg/dL Lactic Acid (0.5-2.0) mmol/L Calcium (8.4-10.2) mg/dL Total Bilirubin (0.0-1.0) mg/dL AST (5-31) U/L ALT (0-31) U/L Alkaline Phosphatase (39-117) U/L Troponin I High Sens (<3.5-17.0) ng/L B-Natriuretic Peptide (<100) pg/mL Total Protein (6.5-8.0) g/dL Albumin (3.5-5.0) g/dL ABG Data Attestation ABG: I personally reviewed and interpreted this ABG as follows: Interpretation: METABOLIC ACIDOSIS Independent Interpretation I performed an independent interpretation of an: EKG Interpretation: SINUS TACHYCARDIA INTRAVENTRICULAR CONDUCTION DELAY TO NO CURRENT OF INJURY Radiology Impression Discussion of test interpretation with radiology: I have reviewed the radiologist's reading. Radiologist Impression: TECHNIQUE: Frontal view of the chest was obtained. FINDINGS: Large body habitus. Cardiac silhouette is mildly enlarged, status post coronary artery bypass graft surgery. Sternotomy wires are intact. Nonspecific haziness of each hemithorax could represent layering of pleural effusions although unable to exclude any superimposed groundglass pulmonary opacities. The right lateral costophrenic sulcus remains blunted from the small pleural effusion. The persistent opacities of lower lung zones are probably from atelectasis. No significant improvement in these opacities since 07/22/2022. No pneumothorax or other significant change. XR/XR chest 1V IMPRESSION: *? Cardiomegaly without overt pulmonary edema. *? Small pleural effusions (right larger than left). *? Persistent nonspecific opacities -likely atelectasis - within the lower lung zones. ? Dictated By: Franck Saucedo MD Signed By: <Electronically signed by Franck Saucedo MD in [place]> 08/04/22 1031 External Record Review External record reviewed: Inpatient record Chronic Conditions Patient?s care impacted by: Diabetes, Hypertension and Other (cad/copd) Procedures EJ/Peripheral Line Arm R: Time Out Performed: Yes Skin Cleansed in Sterile Fashion: Yes Size (gauge): 20 IV Secured and Dressing Applied: Yes Patient Tolerated Procedure: well Additional Comments: Under US cannulated rt brachiaL VEIN Critical Care Time Critical Care Time Critical Care Time: Yes Total Critical Care Time: 60 Attestation: taking care of the pt speaking with /EMS/ICU team Discharge Plan Discharge Clinical Impression: DKA (diabetic ketoacidosis), Acute hyperkalemia, COPD (chronic obstructive pulmonary disease), Elevated troponin Patient Disposition: Admitted As Inpatient
[2022-08-04] MEDS: ondansetron HCL 4 MG/2 ML VIAL IVPUSH (09:45)
[2022-08-04] MEDS: fentaNYL citrate/PF 100 MCG/2 ML VIAL 25 MCG EPIDURAL (09:46)
[2022-08-04 10:05] LABS: ABG Base Excess -10.9 mmol/L; ABG HCO3 16 mmol/L (22-26); ABG pCO2 43 mmHg (32-45); ABG pH 7.18 (7.35-7.45); ABG pO2 87 mmHg (83-108)
--- NOTE | 2022-08-04 10:33 | PHA.MEDREC ---
Pharmacy Consult ? Medication Reconciliation Pharmacy has completed the medication reconciliation. Patient had a list brought in by ambulance that was inaccurate. Patient has new prescription for amandatine but has not started it yet. Patient confirmed she finished doxycyline and prednisone. Helen Fry, PharmD
--- NOTE | 2022-08-04 10:35 | PC.NURSE ---
pt a hard poke,, multiple PCT attempt. will hang abx when both cultures drawn
[2022-08-04 10:48] LABS: Basophils Percent Auto 0.1 % (0-2); Eosinophils Percent Auto 0.1 % (0-4); Hematocrit 33.7 % (37.0-47.0); Hemoglobin 10.7 g/dl (12.0-16.0); Imm Gran Abs Auto 0.21 X10*3/uL (0.00-0.03); Imm Gran Pct Auto 1.4 % (0.0-0.4); Lymphocytes Absolute Auto 0.6 X10*3/uL (1.2-4.9); Lymphocytes Percent Auto 4.2 % (20-40); MANUAL DIFF FLAG SCAN; Mean Corpuscular HGB Conc 31.8 g/dl (31.0-35.0); Mean Corpuscular Hemoglobin 32.7 pg (27.0-33.0); Mean Corpuscular Volume 103.1 fL (80.0-98.0); Mean Platelet Volume 13.1 fL (9.4-12.3); Monocytes Absolute Auto 0.3 X10*3/uL (0.1-1.2); Monocytes Percent Auto 1.6 % (2-11); Neutrophils Absolute Auto 14.1 x10*3/uL (2.0-8.3); Neutrophils Percent Auto 92.6 % (45-73); Platelet Count 294 X10*3/uL (160-400); Red Blood Count 3.27 X10*6/uL (4.20-5.50); Red Cell Distribution Width 14.8 % (11.0-16.0); SCAN SMEAR FLAG 1; White Blood Count 15.2 X10*3/uL (4.8-10.8)
--- NOTE | 2022-08-04 10:49 | PC.NURSE ---
call placed to phlebotomy to obtain second set of cultures
[2022-08-04 10:59] LABS: Lactic Acid 6.7 mmol/L (0.5-2.0)
[2022-08-04 11:00] LABS: Alanine Aminotransferase 65 U/L (0-31); Albumin Level 3.7 g/dL (3.5-5.0); Alkaline Phosphatase 182 U/L (39-117); Aspartate Amino Transferase 92 U/L (5-31); Bilirubin Total 2.2 mg/dL (0.0-1.0); Blood Urea Nitrogen 39 mg/dL (9-16); Calcium 8.3 mg/dL (8.4-10.2); Creatinine Clr Calc Pharmacy 22.9; Estimated Glomerular Filt Rate 19
[2022-08-04 11:02] LABS: B Type Natriuretic Peptide 853 pg/mL (<100)
[2022-08-04] MEDS: Doxycycline Hyclate 100 MG in 0.9 % Sodium Chloride 250 ML 166.67 MG IV (11:07)
[2022-08-04] MEDS: 0.9 % Sodium Chloride 1,000 ML 999 ML IVCONT (11:07)
[2022-08-04 11:09] LABS: SLIDE REVIEW VERIFIED
[2022-08-04 11:10] LABS: Troponin-I High Sensitivity > 3600.0 ng/L (<3.5-17.0)
[2022-08-04 11:11] LABS: Anion Gap 26 (12-20); Carbon Dioxide 17 mmol/L (22-29); Chloride 90 mmol/L (96-108); Glucose Random 867 mg/dL (60-115); Potassium 7.1 mmol/L (3.3-5.1); Sodium 126 mmol/L (135-145)
[2022-08-04] MEDS: Insulin Regular, Human 100 UNIT/ML 3 ML VIAL 10 UNIT IVPUSH (11:17)
[2022-08-04 11:28] LABS: Glucose, Whole Blood > 600 mg/dL (60-115)
--- NOTE | 2022-08-04 11:53 | PC.NURSE ---
U/S guided 20G placed in RAC by dr Bocanegra
--- NOTE | 2022-08-04 12:02 | PC.NURSE ---
per MD carrizales - pt does not need IV abx. reports he will cancel .
[2022-08-04 12:06] LABS: ABG Refer to POC result
[2022-08-04] MEDS: Insulin Regular/NS 100 UNIT/100 ML PLAST..BAG 6 UNIT IVCONT (12:15)
[2022-08-04 12:18] LABS: COVID-19 Test Negative (Negative); IDNOW Serial# 08D9AD1C
[2022-08-04 12:37] LABS: Reflex Lactate? Lactic Acid Added
[2022-08-04 13:30] LABS: Glucose, Whole Blood 575 mg/dL (60-115)
[2022-08-04 13:30] LABS: Glucose, Whole Blood > 600 mg/dL (60-115)
[2022-08-04] MEDS: Lactated Ringers 1,000 ML 100 ML IVCONT (13:36)
--- NOTE | 2022-08-04 14:18 | PM.CCHP ---
History of Present Illness Date of Service: 08/04/22 Chief Complaint: dyspnea 67-year-old lady with underlying history of obesity, COPD, CAD status post CABG, diabetes mellitus, hypothyroidism admitted on 08/04/2022 for initial complaints of dyspnea. On ER evaluation patient noted to have family weighted troponins and diabetic ketoacidosis. Her EKG showed no acute ST changes. She was started on insulin drip IV fluids and per cardiology service recommendations on heparin drip and admitted to the intensive care unit. Review of Systems Constitutional: Constitutional: Denies daytime sleepiness, Denies excessive sweating, Denies fatigue, Denies fever(s), Denies lethargy, Denies malaise, Denies night sweats, Denies snoring and Denies weight loss Eyes: Eyes: Denies blurry vision and Denies itchy eyes ENT: Denies nasal congestion, Denies post nasal drip, Denies sinus pain, Denies sinus pressure and Denies other ( Thrush) Cardiovascular: Cardiovascular: Denies chest pain, Reports pedal edema, Reports dyspnea, Reports dyspnea on exertion, Denies orthopnea and Denies paroxysmal nocturnal dyspnea Respiratory: Respiratory: Denies cough, Denies hemoptysis, Denies excessive phlegm production, Reports dyspnea, Reports dyspnea on exertion, Denies snoring and Denies wheezing Gastrointestinal: Gastrointestinal: Denies abdominal pain and Denies heartburn Musculoskeletal: Musculoskeletal: Denies myalgias, Denies arthralgias and Denies joint swelling Integumentary/Breasts: Skin/Breast: Denies rash Neurologic: Denies memory loss and Denies seizure-like activity Psychiatric: Psychiatric: Denies abnormal sleep pattern, Denies anxiety and Denies memory loss Endocrine: Endocrine: Denies excessive sweating, Denies fatigue and Denies heat intolerance Hematologic/Lymphatic: Hematologic/Lymphatic: Denies easy bruising Allergic/Immunologic: Allergic/Immunologic: Denies itchy eyes, Denies seasonal rhinorrhea and Denies wheezing PMFSH Past Medical History Medical History CAD (coronary artery disease) Cervical cancer screening CKD (chronic kidney disease) COPD (chronic obstructive pulmonary disease) Diabetes High cholesterol Hypothyroidism Post-menopausal Screening for breast cancer Family History Family History Mother Diabetes CAD (coronary artery disease) Surgical History Surgical History Hx of coronary artery bypass graft S/P cardiac catheterization Social History Social History Housing: House Alcohol intake: never Patient Tobacco Use Status: Current everyday Tobacco user Tobacco use type: Cigarette Cigarettes Per Day: 7 Years Smoked: 40+/- years Smoked in Last 30 Days: No Use of substances other than those prescribed or required for medical reasons: No Advance Directives: No Advance Directives Information Provided: No Nutrition Risks: No Nutritional Risk service: No Current occupational status: disabled Meds Allergies Allergy/AdvReac Type Severity Reaction Status Date / Time Penicillins Allergy Mild UNKNOWN Verified 07/21/22 13:38 buprenorphine [Suboxone] Allergy Unknown unknown Verified 07/21/22 13:38 naloxone [Suboxone] Allergy Unknown unknown Verified 07/21/22 13:38 Active Medications: Current Medications Albuterol Sulfate 2.5 mg/ (Ipratropium [place] 0.5 mg) 0 mg INHALE RQ6H WHILE AWAKE PRN PRN Reason: shortness of breath Heparin Sodium (Porcine) (Heparin Sodium,Porcine 5,000 Unit/Ml Vial) 8,700 unit 80 unit/kg (8700 unit) IVPUSH PROTOCOL BOLUS PRN; Protocol PRN Reason: 80 unit/kg - Heparin Protocol Heparin Sodium (Porcine) (Heparin Sodium,Porcine 5,000 Unit/Ml Vial) 4,300 unit 40 unit/kg (4300 unit) IVPUSH PROTOCOL BOLUS PRN; Protocol PRN Reason: 40 unit/kg - Heparin Protocol Insulin Human Regular (Myxredlin) 100 unit in 100 mls @ 6 mls/hr IVCONT .[id number] MIRNA; Protocol Last Titration: 08/04/22 13:35 Dose: 3 unit/hr, 3 mls/hr Dextrose (D10) 250 mls @ 750 mls/hr IV Q30M PRN PRN Reason: BG < 70 Lactated Ringer's (Lr) 1,000 mls @ 100 mls/hr IVCONT .Q10H MIRNA Last Admin: 08/04/22 13:36 Dose: 100 mls/hr Heparin Sodium/Sodium Chloride (Heparin Sodium,Porcine/1/2ns) 25,000 unit in 250 mls @ 0 mls/hr IVCONT .Q0M MIRNA; Protocol Home Medications Medication Instructions Recorded Confirmed Last Taken Type aspirin 81 mg chewable tablet 1 tab PO DAILY 02/12/20 08/04/22 06/29/22 History lorazepam 0.5 mg tablet 0.5 mg PO DAILY PRN anxiety 02/12/20 08/04/22 06/29/22 History cetirizine 10 mg tablet 10 mg PO DAILY PRN Allergic 12/03/20 08/04/22 06/29/22 History Symptoms fluticasone fur. 200 mcg-umeclid 1 inh inhalation DAILY 06/30/22 08/04/22 06/29/22 History 62.5 mcg-vilant 25 mcg inhalat.powder (Trelegy Ellipta) levothyroxine 150 mcg tablet 1 tab PO DAILY 06/30/22 08/04/22 06/29/22 History glipizide 5 mg tablet 5 mg PO BID 08/04/22 08/04/22 Unknown History lisinopril 2.5 mg tablet 2.5 mg PO DAILY 08/04/22 08/04/22 Unknown History Physical Exam Vital Signs: Vital Signs: Last Vital Signs Temp 97.8 F 08/04/22 11:10 Pulse 137 H 08/04/22 14:00 Resp 17 08/04/22 14:00 BP 120/79 08/04/22 12:43 Pulse Ox 94 08/04/22 14:00 O2 Del Method High Flow Nasal C annula 08/04/22 14:00 O2 Flow Rate 20 08/04/22 14:00 FiO2 35 08/04/22 14:00 Oxygen Flow Rate 6 08/04/22 09:30 BMI result Body Mass Index 48.2 Const: General: no acute distress and alert Nutritional Appearance: obese Orientation/consciousness: Other orientation findings ( oriented) HEENT: Head: Yes atraumatic Mouth: no other ( thrush) Throat: No postnasal drainage Eyes: General: appearance normal, both eyes and all related structures Sclerae: sclerae normal EOM: EOMs intact bilaterally Neck: Neck: Yes supple Lymphatic: no lymphadenopathy noted Resp: Effort & Inspection: normal respiratory effort and no use of accessory muscles Auscultation: crackles ( bibasilar) Cardio: Rate: tachycardic Rhythm: regular rhythm Heart sounds: no gallops, no murmurs and no rubs GI: Palpation (GI): Soft to palpation and Other GI palpation findings present ( nontender) Skin: General skin exam: other ( warm) Rashes: no rashes Extrem: General: No clubbing, No cyanosis and Yes edema ( 2+ bilateral) Results Labs 08/04/22 10:31 08/04/22 10:31 Labs: Laboratory Results - last 24 hr 08/04/22 08/04/22 08/04/22 09:56 10:31 10:31 MCV 103.1 H MCH 32.7 MCHC 31.8 RDW 14.8 Plt Count 294 MPV 13.1 H Immature Gran % (Auto) 1.4 H Neut % (Auto) 92.6 H Lymph % (Auto) 4.2 L [place] % (Auto) 1.6 L Eos % (Auto) 0.1 Baso % (Auto) 0.1 Lymph # (Auto) 0.6 L [place] # (Auto) 0.3 Eos # (Auto) 0.0 Baso # (Auto) 0.0 Abs Immat Gran (auto) 0.21 H Absolute Neuts (auto) 14.1 H Absolute Nucleated RBC 0.000 Nucleated RBC % (auto) 0.0 Smear Tech's Comments VERIFIED O2 Saturation 92.0 ABG pH at Pt Temp 7.18 L* ABG pCO2 at Pt Temp 43 ABG pO2 at Pt Temp 87 ABG HCO3 16 L ABG Base Excess (Actual) -10.9 Anion Gap 26 H Estim Creat Clear Calc 22.9 Estimated GFR 19 POC Glucose Random Glucose 867 H* Lactic Acid Calcium 8.3 L D Total Bilirubin 2.2 H AST 92 H ALT 65 H Alkaline Phosphatase 182 H Troponin I High Sens B-Natriuretic Peptide Total Protein 6.0 L Albumin 3.7 COVID-19 ([facility]) COVID-19 Clin Com 08/04/22 08/04/22 08/04/22 10:31 10:31 10:31 MCV MCH MCHC RDW Plt Count MPV Immature Gran % (Auto) Neut % (Auto) Lymph % (Auto) [place] % (Auto) Eos % (Auto) Baso % (Auto) Lymph # (Auto) [place] # (Auto) Eos # (Auto) Baso # (Auto) Abs Immat Gran (auto) Absolute Neuts (auto) Absolute Nucleated RBC Nucleated RBC % (auto) Smear Tech's Comments O2 Saturation ABG pH at Pt Temp ABG pCO2 at Pt Temp ABG pO2 at Pt Temp ABG HCO3 ABG Base Excess (Actual) Anion Gap Estim Creat Clear Calc Estimated GFR POC Glucose Random Glucose Lactic Acid 6.7 H* Calcium Total Bilirubin AST ALT Alkaline Phosphatase Troponin I High Sens > 3600.0 H* D B-Natriuretic Peptide 853 H Total Protein Albumin COVID-19 ([facility]) COVID-19 IKO System Com 08/04/22 08/04/22 08/04/22 11:24 11:49 13:18 MCV MCH MCHC RDW Plt Count MPV Immature Gran % (Auto) Neut % (Auto) Lymph % (Auto) [place] % (Auto) Eos % (Auto) Baso % (Auto) Lymph # (Auto) [place] # (Auto) Eos # (Auto) Baso # (Auto) Abs Immat Gran (auto) Absolute Neuts (auto) Absolute Nucleated RBC Nucleated RBC % (auto) Smear Tech's Comments O2 Saturation ABG pH at Pt Temp ABG pCO2 at Pt Temp ABG pO2 at Pt Temp ABG HCO3 ABG Base Excess (Actual) Anion Gap Estim Creat Clear Calc Estimated GFR POC Glucose > 600 H* > 600 H* Random Glucose Lactic Acid Calcium Total Bilirubin AST ALT Alkaline Phosphatase Troponin I High Sens B-Natriuretic Peptide Total Protein Albumin COVID-19 ([facility]) Negative COVID-19 IKO System Com See Note 08/04/22 13:24 MCV MCH MCHC RDW Plt Count MPV Immature Gran % (Auto) Neut % (Auto) Lymph % (Auto) [place] % (Auto) Eos % (Auto) Baso % (Auto) Lymph # (Auto) [place] # (Auto) Eos # (Auto) Baso # (Auto) Abs Immat Gran (auto) Absolute Neuts (auto) Absolute Nucleated RBC Nucleated RBC % (auto) Smear Tech's Comments O2 Saturation ABG pH at Pt Temp ABG pCO2 at Pt Temp ABG pO2 at Pt Temp ABG HCO3 ABG Base Excess (Actual) Anion Gap Estim Creat Clear Calc Estimated GFR POC Glucose 575 H* Random Glucose Lactic Acid Calcium Total Bilirubin AST ALT Alkaline Phosphatase Troponin I High Sens B-Natriuretic Peptide Total Protein Albumin COVID-19 ([facility]) COVID-19 IKO System Com Imaging Radiologist's Impressions: Impressions Chest X-Ray 08/04/22 09:38 IMPRESSION: * Cardiomegaly without overt pulmonary edema. * Small pleural effusions (right larger than left). * Persistent nonspecific opacities -likely atelectasis - within the lower lung zones. Assessment and Plan (1) DKA (diabetic ketoacidosis): Status: Acute (2) Acute hyperkalemia: Status: Acute (3) Acute kidney injury: Status: Acute (4) COPD (chronic obstructive pulmonary disease): Status: Acute (5) Atrial fibrillation: Status: Acute (6) CAD (coronary artery disease): Status: Acute (7) CHF (congestive heart failure): Qualifiers: Heart failure type: unspecified Heart failure chronicity: chronic Qualified Code(s): I50.9 - Heart failure, unspecified Status: Acute (8) NSTEMI (non-ST elevated myocardial infarction): Status: Acute Plan Assessment: 67-year-old lady with underlying multiple medical issues admitted with NSTEMI and diabetic ketoacidosis Plan: Neuro: No acute issues. Cardiac: NSTEMI. Cardiology service care appreciated. Continue on heparin drip. 2D echo ordered. Afib on anticoagulation. May need digoxin or amiodarone. Pulmonary: Acute hypoxic respiratory failure secondary to exacerbation of underlying diastolic congestive heart failure. Continue to titrate off supplemental oxygen as tolerated. Renal: Acute renal failure and hyperkalemia, likely secondary to underlying diabetic ketoacidosis. Non oliguric. Continue to monitor renal indices and urine output. Expect to improve with resolution of ketoacidosis. Endo: Ketoacidosis now requiring insulin drip. Continue to titrate off as tolerated. GI: No acute issues. ID: No acute issues Heme/Onc: No acute issues. Psych: No acute issues. Miscellaneous: No acute issues. Prophylaxis: Heparin drip Diet: nothing by mouth Critical care time spent: 60 minutes Time Spent With Patient Time: Total time managing care of this patient today ____ minutes.
[2022-08-04] MEDS: Digoxin 0.5 MG/2 ML AMPUL 0.25 MG IVPUSH ×2 (14:36→21:35)
[2022-08-04] MEDS: Heparin Sodium,Porcine/1/2NS 25,000 UNIT/250 ML IV.SOLN 15.2 UNIT IVCONT (14:45)
[2022-08-04 14:53] LABS: VBG Base Excess -8.2 mmol/L; VBG HCO3 17 mmol/L (22-26); VBG pCO2 36 mmHg; VBG pH 7.28 (7.32-7.43); VBG pO2 70 mmHg
[2022-08-04] MEDS: Midazolam HCl/PF 2 MG/2 ML VIAL 0.5 MG IVPUSH (14:57)
[2022-08-04 15:08] LABS: INTERNATIONAL NORM RATIO 1.3 (0.9-1.1); Prothrombin Time 14.9 SEC (10.0-13.1)
[2022-08-04 15:10] LABS: PTT Heparin Drip 34.5 SEC (53-77.9)
[2022-08-04 15:19] LABS: Anion Gap 20 (12-20); Blood Urea Nitrogen 41 mg/dL (9-16); Calcium 8.4 mg/dL (8.4-10.2); Carbon Dioxide 18 mmol/L (22-29); Chloride 97 mmol/L (96-108); Creatinine Clr Calc Pharmacy 24.8; Estimated Glomerular Filt Rate 20; Glucose Random 607 mg/dL (60-115); Potassium 5.4 mmol/L (3.3-5.1); Sodium 130 mmol/L (135-145); ~Lactic Acid-LAB USE ONLY 4.2 mmol/L (0.5-2.0)
[2022-08-04 15:31] LABS: Venous Blood Gas Refer to POC result
[2022-08-04 15:35] LABS: Glucose, Whole Blood 547 mg/dL (60-115)
[2022-08-04 15:35] LABS: Glucose, Whole Blood 507 mg/dL (60-115)
--- NOTE | 2022-08-04 15:36 | PM.CNCAR ---
History of Present Illness History of Present Illness Date of Service: 08/04/22 Requesting physician: Bakari Barajas Chief complaint: DKA,NSTEMI Narrative: 67-year-old female presenting with shortness of breath and diabetic ketoacidosis. She has been well known to our practice and follows up with me. She has background history of COPD, coronary artery disease status post bypass surgery and previous ischemic cardiomyopathy. She also has history of congestive heart failure. She has been seen in the office recently because she was presenting with shortness of breath and was time and again advised to go to the emergency department. She also left AMA from the ER department too. She said she was feeling more short of breath today and that led to her coming to the hospital. She was noticed to have significantly elevated sugars and in DKA. She also was noticed to have elevated troponin levels. She has no chest discomfort. EKG showing atrial flutter with heart rate of 136 213 7 beats per minute. She is denying any palpitations. She was put on apixaban before because there was some concern that she has atrial fibrillation. Compliance is a question but she is saying that she is taking all her medications. She is currently on high-flow nasal cannula and maintaining saturations. She is on insulin drip with some Ringer lactate. [facility] Past Medical History Medical History CAD (coronary artery disease) Cervical cancer screening CKD (chronic kidney disease) COPD (chronic obstructive pulmonary disease) Diabetes High cholesterol Hypothyroidism Post-menopausal Screening for breast cancer Family History Family History Mother Diabetes CAD (coronary artery disease) Surgical History Surgical History Hx of coronary artery bypass graft S/P cardiac catheterization Social History Social History Household Members: Spouse and Family Housing: House Do you presently have visiting nurse or other home services: Yes (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) Alcohol intake: never Patient Tobacco Use Status: Former Tobacco user Quit Date: 07/04/22 Tobacco use type: Cigarette Cigarette Packs Per Day: 2 Cigarettes Per Day: 40.0 Years Smoked: 40+/- years Smoked in Last 30 Days: Yes Patient Interested in Nicotine Replacement: No Patient Given Instructions on How to Stop Smoking: Yes Date Education Initiated: 08/04/22 Second Hand Smoke Exposure: No Use of substances other than those prescribed or required for medical reasons: No Last Used Substance: Unknown Currently Displaying Signs/Symptoms of Drug Intoxication Withdrawal: No Any prior treatment program specific to substance use: No Have you been hit, kicked, punched, or otherwise hurt by someone within the past year? If so, by whom?: No Do you feel safe in your current relationship?: Yes Is there a partner from a previous relationship who is making you feel unsafe now?: No Are you made to feel afraid or neglected: No [facility] Practices: none Advance Directives: No Advance Directives Information Provided: No Advance Directives on File: No Do you have thoughts of harming others: None Do you have a plan to hurt others: No Plan Recently lost weight without trying: No Eating poorly because of decreased appetite: No Nutrition Risks: Dental problems Patient : No : No Poor oral hygiene: Yes service: No Current occupational status: disabled Meds Allergies Allergy/AdvReac Type Severity Reaction Status Date / Time Penicillins Allergy Mild UNKNOWN Verified 07/21/22 13:38 buprenorphine [Suboxone] Allergy Unknown unknown Verified 07/21/22 13:38 naloxone [Suboxone] Allergy Unknown unknown Verified 07/21/22 13:38 Active Medications: Current Medications Albuterol Sulfate 2.5 mg/ (Ipratropium [place] 0.5 mg) 0 mg INHALE RQ6H WHILE AWAKE PRN PRN Reason: shortness of breath Digoxin (Digoxin 0.5 Mg/2 Ml Ampul) 0.25 mg IVPUSH Q6H MINRA Stop: 08/05/22 02:31 Last Admin: 08/04/22 14:36 Dose: 0.25 mg Heparin Sodium (Porcine) (Heparin Sodium,Porcine 5,000 Unit/Ml Vial) 8,700 unit 80 unit/kg (8700 unit) IVPUSH PROTOCOL BOLUS PRN; Protocol PRN Reason: 80 unit/kg - Heparin Protocol Heparin Sodium (Porcine) (Heparin Sodium,Porcine 5,000 Unit/Ml Vial) 4,300 unit 40 unit/kg (4300 unit) IVPUSH PROTOCOL BOLUS PRN; Protocol PRN Reason: 40 unit/kg - Heparin Protocol Insulin Human Regular (Myxredlin) 100 unit in 100 mls @ 6 mls/hr IVCONT .[id number] MINRA; Protocol Last Titration: 08/04/22 14:41 Dose: 4.5 unit/hr, 4.5 mls/hr Dextrose (D10) 250 mls @ 750 mls/hr IV Q30M PRN PRN Reason: BG < 70 Lactated Ringer's (Lr) 1,000 mls @ 100 mls/hr IVCONT .Q10H MIRNA Last Admin: 08/04/22 13:36 Dose: 100 mls/hr Heparin Sodium/Sodium Chloride (Heparin Sodium,Porcine/1/2ns) 25,000 unit in 250 mls @ 0 mls/hr IVCONT .Q0M MIRNA; Protocol Last Admin: 08/04/22 14:45 Dose: 14 units/kg/hr, 15.2 mls/hr Home Medications Medication Instructions Recorded Confirmed Last Taken Type aspirin 81 mg chewable tablet 1 tab PO DAILY 02/12/20 08/04/22 06/29/22 History lorazepam 0.5 mg tablet 0.5 mg PO DAILY PRN anxiety 02/12/20 08/04/22 06/29/22 History cetirizine 10 mg tablet 10 mg PO DAILY PRN Allergic 12/03/20 08/04/22 06/29/22 History Symptoms fluticasone fur. 200 mcg-umeclid 1 inh inhalation DAILY 06/30/22 08/04/22 06/29/22 History 62.5 mcg-vilant 25 mcg inhalat.powder (Trelegy Ellipta) levothyroxine 150 mcg tablet 1 tab PO DAILY 06/30/22 08/04/22 06/29/22 History glipizide 5 mg tablet 5 mg PO BID 08/04/22 08/04/22 Unknown History lisinopril 2.5 mg tablet 2.5 mg PO DAILY 08/04/22 08/04/22 Unknown History Physical Exam Vital Signs: Vital Signs: Last Vital Signs Temp 97.8 F 08/04/22 11:10 Pulse 137 H 08/04/22 14:00 Resp 24 H 08/04/22 15:25 BP 120/79 08/04/22 12:43 Pulse Ox 94 08/04/22 14:00 O2 Del Method High Flow Nasal C annula 08/04/22 14:00 O2 Flow Rate 20 08/04/22 14:00 FiO2 35 08/04/22 14:00 Oxygen Flow Rate 6 08/04/22 09:30 BMI result Body Mass Index 48.2 GENERAL APPEARANCE: Appears comfortable, on high-flow nasal cannula. NECK: no carotid bruit, positive jugular venous distention. SKIN: no suspicious lesions, warm and dry. HEART: no murmurs, regular rate and rhythm. Tachycardic. LUNGS: Crackles both bases. ABDOMEN: soft, nontender. EXTREMITIES: Positive edema. PERIPHERAL PULSES: equal. NEUROLOGIC: No gross deficits, AAO X 3 Objective Labs and Meds 08/04/22 10:31 08/04/22 14:45 Lab results: Laboratory Results - last 24 hr 08/04/22 08/04/22 08/04/22 09:56 10:31 10:31 WBC 15.2 H RBC 3.27 L Hgb 10.7 L Hct 33.7 L MCV 103.1 H MCH 32.7 MCHC 31.8 RDW 14.8 Plt Count 294 MPV 13.1 H Immature Gran % (Auto) 1.4 H Neut % (Auto) 92.6 H Lymph % (Auto) 4.2 L Stafford % (Auto) 1.6 L Eos % (Auto) 0.1 Baso % (Auto) 0.1 Lymph # (Auto) 0.6 L Stafford # (Auto) 0.3 Eos # (Auto) 0.0 Baso # (Auto) 0.0 Abs Immat Gran (auto) 0.21 H Absolute Neuts (auto) 14.1 H Absolute Nucleated RBC 0.000 Nucleated RBC % (auto) 0.0 Smear Tech's Comments VERIFIED PT INR aPTT Heparin Protocol O2 Saturation 92.0 ABG pH at Pt Temp 7.18 L* ABG pCO2 at Pt Temp 43 ABG pO2 at Pt Temp 87 ABG HCO3 16 L ABG Base Excess (Actual) -10.9 VBG pH VBG pCO2 VBG pO2 VBG HCO3 VBG O2 Saturation VBG Base Excess Sodium 126 L Potassium 7.1 H* D Chloride 90 L Carbon Dioxide 17 L Anion Gap 26 H BUN 39 H Creatinine 2.53 H Estim Creat Clear Calc 22.9 Estimated GFR 19 POC Glucose Random Glucose 867 H* Lactic Acid Lactic Acid F/U @ 2Hr Calcium 8.3 L D Total Bilirubin 2.2 H AST 92 H ALT 65 H Alkaline Phosphatase 182 H Troponin I High Sens B-Natriuretic Peptide Total Protein 6.0 L Albumin 3.7 COVID-19 (KRIS) COVID-19 [facility] 08/04/22 08/04/22 08/04/22 10:31 10:31 10:31 WBC RBC Hgb Hct MCV MCH MCHC RDW Plt Count MPV Immature Gran % (Auto) Neut % (Auto) Lymph % (Auto) Stafford % (Auto) Eos % (Auto) Baso % (Auto) Lymph # (Auto) Stafford # (Auto) Eos # (Auto) Baso # (Auto) Abs Immat Gran (auto) Absolute Neuts (auto) Absolute Nucleated RBC Nucleated RBC % (auto) Smear Tech's Comments PT INR aPTT Heparin Protocol O2 Saturation ABG pH at Pt Temp ABG pCO2 at Pt Temp ABG pO2 at Pt Temp ABG HCO3 ABG Base Excess (Actual) VBG pH VBG pCO2 VBG pO2 VBG HCO3 VBG O2 Saturation VBG Base Excess Sodium Potassium Chloride Carbon Dioxide Anion Gap BUN Creatinine Estim Creat Clear Calc Estimated GFR POC Glucose Random Glucose Lactic Acid 6.7 H* Lactic Acid F/U @ 2Hr Calcium Total Bilirubin AST ALT Alkaline Phosphatase Troponin I High Sens > 3600.0 H* D B-Natriuretic Peptide 853 H Total Protein Albumin COVID-19 ([facility]IS) COVID-19 [facility] 08/04/22 08/04/22 08/04/22 11:24 11:49 13:18 WBC RBC Hgb Hct MCV MCH MCHC RDW Plt Count MPV Immature Gran % (Auto) Neut % (Auto) Lymph % (Auto) Stafford % (Auto) Eos % (Auto) Baso % (Auto) Lymph # (Auto) Stafford # (Auto) Eos # (Auto) Baso # (Auto) Abs Immat Gran (auto) Absolute Neuts (auto) Absolute Nucleated RBC Nucleated RBC % (auto) Smear Tech's Comments PT INR aPTT Heparin Protocol O2 Saturation ABG pH at Pt Temp ABG pCO2 at Pt Temp ABG pO2 at Pt Temp ABG HCO3 ABG Base Excess (Actual) VBG pH VBG pCO2 VBG pO2 VBG HCO3 VBG O2 Saturation VBG Base Excess Sodium Potassium Chloride Carbon Dioxide Anion Gap BUN Creatinine Estim Creat Clear Calc Estimated GFR POC Glucose > 600 H* > 600 H* Random Glucose Lactic Acid Lactic Acid F/U @ 2Hr Calcium Total Bilirubin AST ALT Alkaline Phosphatase Troponin I High Sens B-Natriuretic Peptide Total Protein Albumin COVID-19 ([facility]IS) Negative COVID-19 Clin Com See Note 08/04/22 08/04/22 08/04/22 13:24 14:25 14:45 WBC RBC Hgb Hct MCV MCH MCHC RDW Plt Count MPV Immature Gran % (Auto) Neut % (Auto) Lymph % (Auto) Stafford % (Auto) Eos % (Auto) Baso % (Auto) Lymph # (Auto) Stafford # (Auto) Eos # (Auto) Baso # (Auto) Abs Immat Gran (auto) Absolute Neuts (auto) Absolute Nucleated RBC Nucleated RBC % (auto) Smear Tech's Comments PT 14.9 H INR 1.3 H aPTT Heparin Protocol 34.5 L O2 Saturation ABG pH at Pt Temp ABG pCO2 at Pt Temp ABG pO2 at Pt Temp ABG HCO3 ABG Base Excess (Actual) VBG pH VBG pCO2 VBG pO2 VBG HCO3 VBG O2 Saturation VBG Base Excess Sodium Potassium Chloride Carbon Dioxide Anion Gap BUN Creatinine Estim Creat Clear Calc Estimated GFR POC Glucose 575 H* 547 H* Random Glucose Lactic Acid Lactic Acid F/U @ 2Hr Calcium Total Bilirubin AST ALT Alkaline Phosphatase Troponin I High Sens B-Natriuretic Peptide Total Protein Albumin COVID-19 ([facility]) COVID-19 Clin Com 08/04/22 08/04/22 08/04/22 14:45 14:45 14:45 WBC RBC Hgb Hct MCV MCH MCHC RDW Plt Count MPV Immature Gran % (Auto) Neut % (Auto) Lymph % (Auto) Stafford % (Auto) Eos % (Auto) Baso % (Auto) Lymph # (Auto) Stafford # (Auto) Eos # (Auto) Baso # (Auto) Abs Immat Gran (auto) Absolute Neuts (auto) Absolute Nucleated RBC Nucleated RBC % (auto) Smear Tech's Comments PT INR aPTT Heparin Protocol O2 Saturation ABG pH at Pt Temp ABG pCO2 at Pt Temp ABG pO2 at Pt Temp ABG HCO3 ABG Base Excess (Actual) VBG pH 7.28 L VBG pCO2 36 VBG pO2 70 VBG HCO3 17 L VBG O2 Saturation 91.0 VBG Base Excess -8.2 Sodium 130 L Potassium 5.4 H D Chloride 97 Carbon Dioxide 18 L Anion Gap 20 BUN 41 H Creatinine 2.39 H Estim Creat Clear Calc 24.8 Estimated GFR 20 POC Glucose Random Glucose 607 H* Lactic Acid Lactic Acid F/U @ 2Hr 4.2 H* Calcium 8.4 Total Bilirubin AST ALT Alkaline Phosphatase Troponin I High Sens B-Natriuretic Peptide Total Protein Albumin COVID-19 (KRIS) COVID-19 Clin Com 08/04/22 15:32 WBC RBC Hgb Hct MCV MCH MCHC RDW Plt Count MPV Immature Gran % (Auto) Neut % (Auto) Lymph % (Auto) Stafford % (Auto) Eos % (Auto) Baso % (Auto) Lymph # (Auto) Stafford # (Auto) Eos # (Auto) Baso # (Auto) Abs Immat Gran (auto) Absolute Neuts (auto) Absolute Nucleated RBC Nucleated RBC % (auto) Smear Tech's Comments PT INR aPTT Heparin Protocol O2 Saturation ABG pH at Pt Temp ABG pCO2 at Pt Temp ABG pO2 at Pt Temp ABG HCO3 ABG Base Excess (Actual) VBG pH VBG pCO2 VBG pO2 VBG HCO3 VBG O2 Saturation VBG Base Excess Sodium Potassium Chloride Carbon Dioxide Anion Gap BUN Creatinine Estim Creat Clear Calc Estimated GFR POC Glucose 507 H* Random Glucose Lactic Acid Lactic Acid F/U @ 2Hr Calcium Total Bilirubin AST ALT Alkaline Phosphatase Troponin I High Sens B-Natriuretic Peptide Total Protein Albumin COVID-19 (KRIS) COVID-19 Clin Com Imaging Radiologist's impression: Impressions Chest X-Ray 08/04/22 09:38 IMPRESSION: * Cardiomegaly without overt pulmonary edema. * Small pleural effusions (right larger than left). * Persistent nonspecific opacities -likely atelectasis - within the lower lung zones. Assessment and Plan (1) NSTEMI (non-ST elevated myocardial infarction): Status: Acute (2) DKA (diabetic ketoacidosis): Status: Acute (3) CHF (congestive heart failure): Qualifiers: Heart failure type: unspecified Heart failure chronicity: chronic Qualified Code(s): I50.9 - Heart failure, unspecified Status: Acute (4) Atrial flutter: Status: Inactive Plan 67-year-old female who is presenting for shortness of breath and diabetic ketoacidosis. She has bilateral effusions on the chest x-ray by my read and also has some evidence of congestion with crackles. She previously was being diurese. She is also in diabetic ketoacidosis currently. She is getting insulin. She is in atrial flutter with heart rate of 136 beats per minute. We do not have any recent echocardiography. I think for the atrial flutter for now she should get a load of digoxin 250 mcg x 3. I would not start maintenance dose of digoxin yet. We will assess the echocardiogram and if she does not have any significant LV dysfunction then would try some beta-blockers to in addition too. She was on apixaban. I think currently using heparin is a better option. Would avoid Lovenox with acute kidney injury. She has elevated troponin levels. She is in atrial flutter and has diabetic ketoacidosis. She has no chest discomfort. I think the troponin is a type 2 event and could be related to atrial flutter and DKA. In any case he will receive heparin for atrial flutter. We will follow along with you. Thank you for allowing me to participate in the care of your patient. Please feel free to contact me if you have any questions. Time Spent With Patient Time: Total time managing care of this patient today ____ minutes. Procedures Date of Service Date of Service: 08/04/22
[2022-08-04 16:53] LABS: Glucose, Whole Blood 448 mg/dL (60-115)
[2022-08-04 16:59] LABS: Reflex Lactate? 2 Y
--- NOTE | 2022-08-04 17:40 | PC.NURSE ---
Pt arrived to unit 13:50. Insulin gtt running @3 units/hr, LR@100 ml/hr. Per ED report no void this shift. Bladder scan 169 ml. Per MD monitor. Dindongck system used to measure output for incontinence. 14:30 Cardiology MD to bedside for consult. Pt Aflutter on telemetry, HR 130s. Per MD 0.25 mg digoxin given IVP. MIRNA digoxin IVP added for total 3 doses. PTT drawn by phlebotomy and heparin gtt started @14units/kg/hr per protocol. Next PTT-HD 20:45 POC glucose checked Q1H and insulin gtt titrated per DKA insulin gtt protocol. Pt transferred to [place] recliner chair r/t orthopnea per MD. Pt respiratory status improved, decreased work of breath. Prevlon system used for 3 assist transfer. MD notified of critical lactic values, trending down overall and no new orders. Echo completed at bedside. Pt resting comfortably in recliner chair, Q2H repo
[2022-08-04 17:42] LABS: ~Lactic Acid-LAB USE ONLY 3.9 mmol/L (0.5-2.0)
[2022-08-04 18:01] LABS: Glucose, Whole Blood 382 mg/dL (60-115)
[2022-08-04 18:41] LABS: Glucose, Whole Blood 372 mg/dL (60-115)
[2022-08-04 20:16] LABS: Glucose, Whole Blood 249 mg/dL (60-115)
[2022-08-04 21:22] LABS: Anion Gap 20 (12-20); Blood Urea Nitrogen 40 mg/dL (9-16); Calcium 8.8 mg/dL (8.4-10.2); Carbon Dioxide 20 mmol/L (22-29); Chloride 100 mmol/L (96-108); Creatinine Clr Calc Pharmacy 29.5; Estimated Glomerular Filt Rate 25; Glucose Random 199 mg/dL (60-115); Potassium 4.8 mmol/L (3.3-5.1); Sodium 135 mmol/L (135-145)
[2022-08-04] MEDS: Dextrose 5 % and Lactated Ring 1,000 ML 100 ML IVCONT (21:33)
[2022-08-04 21:44] LABS: Glucose, Whole Blood 196 mg/dL (60-115)
[2022-08-04 21:52] LABS: PTT Heparin Drip > 200.0 SEC (53-77.9)
[2022-08-04 22:48] LABS: Glucose, Whole Blood 168 mg/dL (60-115)
[2022-08-04 23:16] LABS: PTT Heparin Drip 185.4 SEC (53-77.9)
[2022-08-04 23:32] LABS: Glucose, Whole Blood 154 mg/dL (60-115)
[2022-08-05] VITALS (16 sets, daily range): BP systolic 112–146; BP diastolic 50–72; PULSE 76–103; RESP 13–30; TEMP 36.4–37; O2SAT 87–95
[2022-08-05 00:26] LABS: Glucose, Whole Blood 154 mg/dL (60-115)
[2022-08-05 00:30] LABS: PTT Heparin Drip 76.1 SEC (53-77.9)
[2022-08-05] MEDS: Insulin Regular/NS 100 UNIT/100 ML PLAST..BAG IVCONT (00:44)
[2022-08-05 02:15] LABS: Glucose, Whole Blood 155 mg/dL (60-115)
[2022-08-05] MEDS: Digoxin 0.5 MG/2 ML AMPUL 0.25 MG IVPUSH (02:54)
[2022-08-05 04:25] LABS: Glucose, Whole Blood 159 mg/dL (60-115)
--- NOTE | 2022-08-05 05:31 | PC.NURSE ---
ASSUMED CARE OF PT AT 1900. PT A&O X3. PT SITTING IN RECLINER AND REFUSED TO GO BACK TO BED. STATES SHE IS MORE COMFORTABLE SITTING UP. HIGH FLOW O2 ON AT 20L AND 40% BUT WAS CHANGED TO LAFLEUR NASAL CANNULA AT 1.5L WHICH PT TOLERATES BETTER. PT DOES NOT TOLERATE LYING DOWN. SHE GETS VERY SHORT OF BREATH AND ANXIOUS. SHE WAS RESTLESS THE FIRST 1/2 OF THE SHIFT BUT FINALLY FELL ASLEEP AROUND 0200. MONITOR SHOWS AFLUTTER, RATE IS CURRENTLY 70'S-90'S AFTER RECEIVING DIGOXIN IV X3 DOSES ORDERED. SHE DENIES PAIN. HEPARIN DRIP INFUSING PER PROTOCOL. BP STABLE. INSULIN DRIP INFUSING PER PROTOCOL. POC GLUCOSE HAS BEEN 150'S FOR THE LAST 4 CHECKS. IV OF D5LR INFUSING AT 100 ML/HR. EDEMA NOTED TO BILAT LOWER EXTREMITIES AND FEET WITH A RED DRY RASH TO BOTH FEET PT STATES IS ECZEMA. PUREWICK IN PLACE DRAINING CLEAR YELLOW URINE. PT ABLE TO STAND WITH USE OF A WALKER. GILDA CARE GIVEN AND BACK CARE DONE.
[2022-08-05 06:03] LABS: Glucose, Whole Blood 156 mg/dL (60-115)
[2022-08-05] MEDS: Dextrose 5 % and Lactated Ring 1,000 ML 100 ML IVCONT (06:09)
[2022-08-05 07:53] LABS: Basophils Percent Auto 0.1 % (0-2); Eosinophils Percent Auto 0.1 % (0-4); Hematocrit 27.8 % (37.0-47.0); Hemoglobin 9.4 g/dl (12.0-16.0); Imm Gran Abs Auto 0.23 X10*3/uL (0.00-0.03); Lymphocytes Absolute Auto 1.3 X10*3/uL (1.2-4.9); Lymphocytes Percent Auto 5.5 % (20-40); MANUAL DIFF FLAG SCAN; Mean Corpuscular Volume 97.5 fL (80.0-98.0); Mean Platelet Volume 12.8 fL (9.4-12.3); Monocytes Percent Auto 4.4 % (2-11); Neutrophils Absolute Auto 20.8 x10*3/uL (2.0-8.3); Neutrophils Percent Auto 88.9 % (45-73); Platelet Count 249 X10*3/uL (160-400); Red Cell Distribution Width 14.4 % (11.0-16.0); SCAN SMEAR FLAG 1; White Blood Count 23.4 X10*3/uL (4.8-10.8)
[2022-08-05 07:53] LABS: Venous Blood Gas Refer to POC result
[2022-08-05 07:54] LABS: Mean Corpuscular HGB Conc 33.8 g/dl (31.0-35.0); Red Blood Count 2.85 X10*6/uL (4.20-5.50)
[2022-08-05 07:55] LABS: VBG Base Excess 2.1 mmol/L; VBG HCO3 25 mmol/L (22-26); VBG pCO2 34 mmHg; VBG pH 7.47 (7.32-7.43); VBG pO2 78 mmHg
[2022-08-05 07:57] LABS: INTERNATIONAL NORM RATIO 1.3 (0.9-1.1); Prothrombin Time 14.5 SEC (10.0-13.1)
[2022-08-05 08:13] LABS: SLIDE REVIEW VERIFIED
[2022-08-05 08:26] LABS: PTT Heparin Drip 114.7 SEC (53-77.9)
[2022-08-05 08:36] LABS: Glucose, Whole Blood 135 mg/dL (60-115)
[2022-08-05] MEDS: cefTRIAXone sodium 1 GM in 0.9 % Sodium Chloride 50 ML IV (08:50)
[2022-08-05 08:54] LABS: Anion Gap 16 (12-20); Blood Urea Nitrogen 45 mg/dL (9-16); Calcium 8.5 mg/dL (8.4-10.2); Carbon Dioxide 24 mmol/L (22-29); Chloride 100 mmol/L (96-108); Creatinine Clr Calc Pharmacy 33.9; Estimated Glomerular Filt Rate 29; Glucose Random 137 mg/dL (60-115); Magnesium 1.5 mg/dL (1.6-2.6); Phosphorus 2.7 mg/dL (2.7-4.5); Potassium 5.2 mmol/L (3.3-5.1); Sodium 135 mmol/L (135-145)
[2022-08-05 09:20] LABS: PTT Heparin Drip 90.6 SEC (53-77.9)
[2022-08-05] MEDS: Insulin Glargine,Hum.rec.anlog 100 UNIT/ML 10 ML VIAL 20 UNIT SUBCUT (10:18)
[2022-08-05] MEDS: Furosemide 20 MG/2 ML VIAL IVPUSH ×2 (10:19→19:46)
[2022-08-05] MEDS: Magnesium Sulfate/H2O 2 GM/50 ML PIGGYBACK IV (10:19)
--- NOTE | 2022-08-05 11:05 | P.PNCC_ITS ---
Subjective Subjective Date of Service: 08/05/22 Interval History: 67-year-old lady with underlying history of obesity, COPD, CAD status post CABG, diabetes mellitus, hypothyroidism admitted on 08/04/2022 for initial complaints of dyspnea. On ER evaluation patient noted to have family weighted troponins and diabetic ketoacidosis. Her EKG showed no acute ST changes. She was started on insulin drip IV fluids and per cardiology service recommendations on heparin drip and admitted to the intensive care unit. No events overnight. Titrated off insulin drip. Critical Care Time (minutes): 0 Physical Exam Vital Signs: Vital Signs: Last Vital Signs Temp 98.5 F 08/05/22 11:00 Pulse 78 08/05/22 11:00 Resp 22 H 08/05/22 11:00 BP 118/60 08/05/22 11:00 Pulse Ox 91 L 08/05/22 11:00 O2 Del Method Nasal Cannula 08/05/22 11:00 O2 Flow Rate 2 08/05/22 11:00 FiO2 40 08/04/22 22:00 Oxygen Flow Rate 6 08/04/22 09:30 BMI result Body Mass Index 48.2 Const: General: no acute distress, alert and awake Nutritional Appearance: obese Eyes: Sclerae: sclerae normal EOM: EOMs intact bilaterally Neck: Neck: Yes no lymphadenopathy, Yes trachea midline and Yes supple Resp: Effort & Inspection: normal respiratory effort and no respiratory distress Auscultation: clear to auscultation bilaterally Cardio: Rate: regular rate Rhythm: regular rhythm Heart sounds: no gallops, no murmurs and no rubs GI: Palpation (GI): Soft to palpation and Other GI palpation findings present ( Nontender) Auscultation: normal bowel sounds Extrem: General: No clubbing, No cyanosis and Yes edema ( 2+ bilateral) Objective Data Labs 08/05/22 07:45 08/05/22 07:45 Labs: Laboratory Results - last 24 hr 08/04/22 08/04/22 08/04/22 10:31 10:31 10:31 WBC RBC Hgb Hct MCV MCH MCHC RDW Plt Count MPV Immature Gran % (Auto) 1.4 H Neut % (Auto) 92.6 H Lymph % (Auto) 4.2 L [place] % (Auto) 1.6 L Eos % (Auto) 0.1 Baso % (Auto) 0.1 Lymph # (Auto) 0.6 L [place] # (Auto) 0.3 Eos # (Auto) 0.0 Baso # (Auto) 0.0 Abs Immat Gran (auto) 0.21 H Absolute Neuts (auto) 14.1 H Absolute Nucleated RBC 0.000 Nucleated RBC % (auto) 0.0 Smear Tech's Comments VERIFIED PT INR aPTT Heparin Protocol VBG pH VBG pCO2 VBG pO2 VBG HCO3 VBG O2 Saturation VBG Base Excess Sodium 126 L Potassium 7.1 H* D Chloride 90 L Carbon Dioxide 17 L Anion Gap 26 H BUN Creatinine Estim Creat Clear Calc Estimated GFR POC Glucose Random Glucose 867 H* Lactic Acid F/U @ 2Hr Lactic Acid F/U @ 4Hr Calcium Phosphorus Magnesium Troponin I High Sens > 3600.0 H* D COVID-19 ([facility]) COVID-Home Delivery Service (HDS) 08/04/22 08/04/22 08/04/22 11:24 11:49 13:18 WBC RBC Hgb Hct MCV MCH MCHC RDW Plt Count MPV Immature Gran % (Auto) Neut % (Auto) Lymph % (Auto) [place] % (Auto) Eos % (Auto) Baso % (Auto) Lymph # (Auto) [place] # (Auto) Eos # (Auto) Baso # (Auto) Abs Immat Gran (auto) Absolute Neuts (auto) Absolute Nucleated RBC Nucleated RBC % (auto) Smear Tech's Comments PT INR aPTT Heparin Protocol VBG pH VBG pCO2 VBG pO2 VBG HCO3 VBG O2 Saturation VBG Base Excess Sodium Potassium Chloride Carbon Dioxide Anion Gap BUN Creatinine Estim Creat Clear Calc Estimated GFR POC Glucose > 600 H* > 600 H* Random Glucose Lactic Acid F/U @ 2Hr Lactic Acid F/U @ 4Hr Calcium Phosphorus Magnesium Troponin I High Sens COVID-19 ([facility]) Negative COVID-Home Delivery Service (HDS) See Note 08/04/22 08/04/22 08/04/22 13:24 14:25 14:45 WBC RBC Hgb Hct MCV MCH MCHC RDW Plt Count MPV Immature Gran % (Auto) Neut % (Auto) Lymph % (Auto) [place] % (Auto) Eos % (Auto) Baso % (Auto) Lymph # (Auto) [place] # (Auto) Eos # (Auto) Baso # (Auto) Abs Immat Gran (auto) Absolute Neuts (auto) Absolute Nucleated RBC Nucleated RBC % (auto) Smear Tech's Comments PT 14.9 H INR 1.3 H aPTT Heparin Protocol 34.5 L VBG pH VBG pCO2 VBG pO2 VBG HCO3 VBG O2 Saturation VBG Base Excess Sodium Potassium Chloride Carbon Dioxide Anion Gap BUN Creatinine Estim Creat Clear Calc Estimated GFR POC Glucose 575 H* 547 H* Random Glucose Lactic Acid F/U @ 2Hr Lactic Acid F/U @ 4Hr Calcium Phosphorus Magnesium Troponin I High Sens COVID-19 ([facility]) COVID-19 [employer] 08/04/22 08/04/22 08/04/22 14:45 14:45 14:45 WBC RBC Hgb Hct MCV MCH MCHC RDW Plt Count MPV Immature Gran % (Auto) Neut % (Auto) Lymph % (Auto) [place] % (Auto) Eos % (Auto) Baso % (Auto) Lymph # (Auto) [place] # (Auto) Eos # (Auto) Baso # (Auto) Abs Immat Gran (auto) Absolute Neuts (auto) Absolute Nucleated RBC Nucleated RBC % (auto) Smear Tech's Comments PT INR aPTT Heparin Protocol VBG pH 7.28 L VBG pCO2 36 VBG pO2 70 VBG HCO3 17 L VBG O2 Saturation 91.0 VBG Base Excess -8.2 Sodium 130 L Potassium 5.4 H D Chloride 97 Carbon Dioxide 18 L Anion Gap 20 BUN 41 H Creatinine 2.39 H Estim Creat Clear Calc 24.8 Estimated GFR 20 POC Glucose Random Glucose 607 H* Lactic Acid F/U @ 2Hr 4.2 H* Lactic Acid F/U @ 4Hr Calcium 8.4 Phosphorus Magnesium Troponin I High Sens COVID-19 ([facility]) COVID-19 [employer] 08/04/22 08/04/22 08/04/22 15:32 16:49 17:13 WBC RBC Hgb Hct MCV MCH MCHC RDW Plt Count MPV Immature Gran % (Auto) Neut % (Auto) Lymph % (Auto) [place] % (Auto) Eos % (Auto) Baso % (Auto) Lymph # (Auto) [place] # (Auto) Eos # (Auto) Baso # (Auto) Abs Immat Gran (auto) Absolute Neuts (auto) Absolute Nucleated RBC Nucleated RBC % (auto) Smear Tech's Comments PT INR aPTT Heparin Protocol VBG pH VBG pCO2 VBG pO2 VBG HCO3 VBG O2 Saturation VBG Base Excess Sodium Potassium Chloride Carbon Dioxide Anion Gap BUN Creatinine Estim Creat Clear Calc Estimated GFR POC Glucose 507 H* 448 H* Random Glucose Lactic Acid F/U @ 2Hr Lactic Acid F/U @ 4Hr 3.9 H* Calcium Phosphorus Magnesium Troponin I High Sens COVID-19 ([facility]) COVID-19 [employer] 08/04/22 08/04/22 08/04/22 17:58 18:37 20:06 WBC RBC Hgb Hct MCV MCH MCHC RDW Plt Count MPV Immature Gran % (Auto) Neut % (Auto) Lymph % (Auto) [place] % (Auto) Eos % (Auto) Baso % (Auto) Lymph # (Auto) [place] # (Auto) Eos # (Auto) Baso # (Auto) Abs Immat Gran (auto) Absolute Neuts (auto) Absolute Nucleated RBC Nucleated RBC % (auto) Smear Tech's Comments PT INR aPTT Heparin Protocol VBG pH VBG pCO2 VBG pO2 VBG HCO3 VBG O2 Saturation VBG Base Excess Sodium Potassium Chloride Carbon Dioxide Anion Gap BUN Creatinine Estim Creat Clear Calc Estimated GFR POC Glucose 382 H* 372 H* 249 H Random Glucose Lactic Acid F/U @ 2Hr Lactic Acid F/U @ 4Hr Calcium Phosphorus Magnesium Troponin I High Sens COVID-19 ([facility]) COVID-Home Delivery Service (HDS) 08/04/22 08/04/22 08/04/22 20:40 20:40 21:21 WBC RBC Hgb Hct MCV MCH MCHC RDW Plt Count MPV Immature Gran % (Auto) Neut % (Auto) Lymph % (Auto) [place] % (Auto) Eos % (Auto) Baso % (Auto) Lymph # (Auto) [place] # (Auto) Eos # (Auto) Baso # (Auto) Abs Immat Gran (auto) Absolute Neuts (auto) Absolute Nucleated RBC Nucleated RBC % (auto) Smear Tech's Comments PT INR aPTT Heparin Protocol > 200.0 H* D VBG pH VBG pCO2 VBG pO2 VBG HCO3 VBG O2 Saturation VBG Base Excess Sodium 135 Potassium 4.8 Chloride 100 Carbon Dioxide 20 L Anion Gap 20 BUN 40 H Creatinine 2.01 H Estim Creat Clear Calc 29.5 Estimated GFR 25 POC Glucose 196 H Random Glucose 199 H Lactic Acid F/U @ 2Hr Lactic Acid F/U @ 4Hr Calcium 8.8 Phosphorus Magnesium Troponin I High Sens COVID-19 ([facility]) COVID-19 [employer] 08/04/22 08/04/22 08/04/22 22:37 22:48 23:27 WBC RBC Hgb Hct MCV MCH MCHC RDW Plt Count MPV Immature Gran % (Auto) Neut % (Auto) Lymph % (Auto) [place] % (Auto) Eos % (Auto) Baso % (Auto) Lymph # (Auto) [place] # (Auto) Eos # (Auto) Baso # (Auto) Abs Immat Gran (auto) Absolute Neuts (auto) Absolute Nucleated RBC Nucleated RBC % (auto) Smear Tech's Comments PT INR aPTT Heparin Protocol 185.4 H* VBG pH VBG pCO2 VBG pO2 VBG HCO3 VBG O2 Saturation VBG Base Excess Sodium Potassium Chloride Carbon Dioxide Anion Gap BUN Creatinine Estim Creat Clear Calc Estimated GFR POC Glucose 168 H 154 H Random Glucose Lactic Acid F/U @ 2Hr Lactic Acid F/U @ 4Hr Calcium Phosphorus Magnesium Troponin I High Sens COVID-19 ([facility]) [employer] 08/05/22 08/05/22 08/05/22 00:15 00:22 02:10 WBC RBC Hgb Hct MCV MCH MCHC RDW Plt Count MPV Immature Gran % (Auto) Neut % (Auto) Lymph % (Auto) [place] % (Auto) Eos % (Auto) Baso % (Auto) Lymph # (Auto) [place] # (Auto) Eos # (Auto) Baso # (Auto) Abs Immat Gran (auto) Absolute Neuts (auto) Absolute Nucleated RBC Nucleated RBC % (auto) Smear Tech's Comments PT INR aPTT Heparin Protocol 76.1 D VBG pH VBG pCO2 VBG pO2 VBG HCO3 VBG O2 Saturation VBG Base Excess Sodium Potassium Chloride Carbon Dioxide Anion Gap BUN Creatinine Estim Creat Clear Calc Estimated GFR POC Glucose 154 H 155 H Random Glucose Lactic Acid F/U @ 2Hr Lactic Acid F/U @ 4Hr Calcium Phosphorus Magnesium Troponin I High Sens COVID-19 ([facility]) [employer] 08/05/22 08/05/22 08/05/22 04:21 05:58 07:44 WBC RBC Hgb Hct MCV MCH MCHC RDW Plt Count MPV Immature Gran % (Auto) Neut % (Auto) Lymph % (Auto) [place] % (Auto) Eos % (Auto) Baso % (Auto) Lymph # (Auto) [place] # (Auto) Eos # (Auto) Baso # (Auto) Abs Immat Gran (auto) Absolute Neuts (auto) Absolute Nucleated RBC Nucleated RBC % (auto) Smear Tech's Comments PT INR aPTT Heparin Protocol 114.7 H* D VBG pH VBG pCO2 VBG pO2 VBG HCO3 VBG O2 Saturation VBG Base Excess Sodium Potassium Chloride Carbon Dioxide Anion Gap BUN Creatinine Estim Creat Clear Calc Estimated GFR POC Glucose 159 H 156 H Random Glucose Lactic Acid F/U @ 2Hr Lactic Acid F/U @ 4Hr Calcium Phosphorus Magnesium Troponin I High Sens COVID-19 ([facility]) [employer] 08/05/22 08/05/22 08/05/22 07:45 07:45 07:45 WBC 23.4 H RBC 2.85 L Hgb 9.4 L Hct 27.8 L MCV 97.5 D MCH 33.0 MCHC 33.8 RDW 14.4 Plt Count 249 MPV 12.8 H Immature Gran % (Auto) 1.0 H Neut % (Auto) 88.9 H Lymph % (Auto) 5.5 L [place] % (Auto) 4.4 Eos % (Auto) 0.1 Baso % (Auto) 0.1 Lymph # (Auto) 1.3 [place] # (Auto) 1.0 Eos # (Auto) 0.0 Baso # (Auto) 0.0 Abs Immat Gran (auto) 0.23 H Absolute Neuts (auto) 20.8 H Absolute Nucleated RBC 0.000 Nucleated RBC % (auto) 0.0 Smear Tech's Comments VERIFIED PT 14.5 H INR 1.3 H aPTT Heparin Protocol VBG pH VBG pCO2 VBG pO2 VBG HCO3 VBG O2 Saturation VBG Base Excess Sodium 135 Potassium 5.2 H Chloride 100 Carbon Dioxide 24 Anion Gap 16 BUN 45 H Creatinine 1.75 H Estim Creat Clear Calc 33.9 Estimated GFR 29 POC Glucose Random Glucose 137 H Lactic Acid F/U @ 2Hr Lactic Acid F/U @ 4Hr Calcium 8.5 Phosphorus 2.7 Magnesium 1.5 L Troponin I High Sens COVID-19 ([facility]) COVID-Home Delivery Service (HDS) 08/05/22 08/05/22 08/05/22 07:47 08:15 09:05 WBC RBC Hgb Hct MCV MCH MCHC RDW Plt Count MPV Immature Gran % (Auto) Neut % (Auto) Lymph % (Auto) [place] % (Auto) Eos % (Auto) Baso % (Auto) Lymph # (Auto) [place] # (Auto) Eos # (Auto) Baso # (Auto) Abs Immat Gran (auto) Absolute Neuts (auto) Absolute Nucleated RBC Nucleated RBC % (auto) Smear Tech's Comments PT INR aPTT Heparin Protocol 90.6 H D VBG pH 7.47 H VBG pCO2 34 VBG pO2 78 VBG HCO3 25 VBG O2 Saturation 95.0 VBG Base Excess 2.1 Sodium Potassium Chloride Carbon Dioxide Anion Gap BUN Creatinine Estim Creat Clear Calc Estimated GFR POC Glucose 135 H Random Glucose Lactic Acid F/U @ 2Hr Lactic Acid F/U @ 4Hr Calcium Phosphorus Magnesium Troponin I High Sens COVID-19 ([facility]) COVID-19 Clin Com Progress Note: A&P Assessment and plan (1) NSTEMI (non-ST elevated myocardial infarction): Status: Acute (2) CAD (coronary artery disease): Status: Acute (3) Diabetes mellitus: Status: Acute (4) Atrial fibrillation: Status: Acute (5) COPD (chronic obstructive pulmonary disease): Status: Acute Plan Assessment: 67-year-old lady with underlying multiple medical issues admitted with NSTEMI and diabetic ketoacidosis Plan: Neuro: No acute issues. Cardiac: NSTEMI. Cardiology service care appreciated. Continue on heparin dr ip. 2D echo with newly decreased injection fraction and wall motion abnormalities. Afib on anticoagulation. Loaded with digoxin. Acute on chronic systolic congestive heart failure, improved with diuresis. Pulmonary: Acute hypoxic respiratory failure secondary to exacerbation of underlying diastolic congestive heart failure. Continue to titrate off supplemental oxygen as tolerated. Renal: Acute renal failure and hyperkalemia, likely secondary to underlying diabetic ketoacidosis , improved. Non oliguric. Continue to monitor renal indices and urine output. Endo: Diabetic ketoacidosis, resolved. Titrated off insulin drip to subcutaneous insulin. GI: No acute issues. ID: No acute issues Heme/Onc: No acute issues. Psych: No acute issues. Miscellaneous: No acute issues. Prophylaxis: Heparin drip Diet: diabetic diet Quality Stroke Does the patient have a stroke diagnosis?: No VTE Prior VTE?: No VTE Risk Level:: Medical - moderate - high VTE Device Contraindication: Treatment Not Indicated VTE Drug Contraindication: N/A - Med Ordered
[2022-08-05 11:11] LABS: Glucose, Whole Blood 178 mg/dL (60-115)
[2022-08-05] MEDS: Insulin Lispro 100 UNIT/ML 3 ML VIAL SUBCUT ×3 (11:32→20:52)
[2022-08-05 12:26] LABS: Anion Gap 14 (12-20); Blood Urea Nitrogen 45 mg/dL (9-16); Calcium 8.8 mg/dL (8.4-10.2); Carbon Dioxide 27 mmol/L (22-29); Chloride 97 mmol/L (96-108); Creatinine Clr Calc Pharmacy 32.8; Estimated Glomerular Filt Rate 28; Glucose Random 184 mg/dL (60-115); Potassium 5.3 mmol/L (3.3-5.1); Sodium 133 mmol/L (135-145)
--- NOTE | 2022-08-05 12:44 | MHC.CM.PN ---
Met w/pt and spouse to discuss d/c planning needs: pt resides w/spouse and adult son who both assist w/care needs and transportation. Pt uses a walker and has [facility] services for housekeeping needs 3 hrs / week. Pt agreeable to [facility] referral and chose [facility]. Referral made. Declined HCP, IMM in chart, vax x 2 no booster. CM to follow.
[2022-08-05] MEDS: Lactulose 20 GM/30 ML SOLUTION 30 GM PO (12:56)
[2022-08-05] MEDS: Heparin Sodium,Porcine/1/2NS 25,000 UNIT/250 ML IV.SOLN 6.52 UNIT IVCONT (12:59)
[2022-08-05 15:35] LABS: Glucose, Whole Blood 215 mg/dL (60-115)
--- NOTE | 2022-08-05 16:22 | PM.PNCARD ---
Subjective Subjective Date of Service: 08/05/22 Principal diagnosis: NSTEMI, CHF, atrial flutter,DKA Interval history: Seen at 1600. Today she is seen sitting in a recliner in no acute distress. She denies having chest discomfort, heart palpitations or shortness of breath. She says her breathing is comfortable and she is wearing oxygen with nasal cannula 1.5 L. Lower legs have significant edema which she says is not new. IV heparin drip infusing. business operations manager showing atrial flutter with rates ranging 80s up to a high of 130s. Review of Systems Review of Systems As above Yes all other systems are reviewed and are negative Physical Exam Vital Signs: Last Vital Signs Temp 98.2 F 08/05/22 14:56 Pulse 93 08/05/22 14:56 Resp 18 08/05/22 14:56 BP 122/58 L 08/05/22 14:56 Pulse Ox 95 08/05/22 14:56 O2 Del Method Nasal Cannula 08/05/22 14:56 O2 Flow Rate 1.5 08/05/22 14:56 FiO2 40 08/04/22 22:00 Oxygen Flow Rate 6 08/04/22 09:30 BMI result Body Mass Index 48.2 Const General: cooperative, healthy appearing, comfortable and no acute distress Orientation/consciousness: patient oriented x3 Neck Neck: Yes normal visual inspection and Yes no JVD Resp Other: Unlabored, lungs diminished bilaterally with fine expiratory wheezes noted Effort & Inspection: normal respiratory effort Auscultation: no rales and no rhonchi Cardio Other: No noted JVD Rate: regular rate Rhythm: abnormal rhythm Heart sounds: S1 normal heart sound present, S2 normal heart sound present, no gallops, no murmurs and no rubs GI Inspection: Yes normal to inspection Neuro General: patient oriented x3 Extrem Other: Tight pitting edema of her lower extremities to the level of her knees Psych Appearance: grossly normal Mental Status: mental status grossly normal Speech and movement: Normal speech and movement present Objective Labs and Meds 08/05/22 07:45 08/05/22 11:59 Lab results: Laboratory Results - last 24 hr 08/04/22 08/04/22 08/04/22 16:49 17:13 17:58 WBC RBC Hgb Hct MCV MCH MCHC RDW Plt Count MPV Immature Gran % (Auto) Neut % (Auto) Lymph % (Auto) [place] % (Auto) Eos % (Auto) Baso % (Auto) Lymph # (Auto) [place] # (Auto) Eos # (Auto) Baso # (Auto) Abs Immat Gran (auto) Absolute Neuts (auto) Absolute Nucleated RBC Nucleated RBC % (auto) Smear Tech's Comments PT INR aPTT Heparin Protocol VBG pH VBG pCO2 VBG pO2 VBG HCO3 VBG O2 Saturation VBG Base Excess Sodium Potassium Chloride Carbon Dioxide Anion Gap BUN Creatinine Estim Creat Clear Calc Estimated GFR POC Glucose 448 H* 382 H* Random Glucose Lactic Acid F/U @ 4Hr 3.9 H* Calcium Phosphorus Magnesium 08/04/22 08/04/22 08/04/22 18:37 20:06 20:40 WBC RBC Hgb Hct MCV MCH MCHC RDW Plt Count MPV Immature Gran % (Auto) Neut % (Auto) Lymph % (Auto) [place] % (Auto) Eos % (Auto) Baso % (Auto) Lymph # (Auto) [place] # (Auto) Eos # (Auto) Baso # (Auto) Abs Immat Gran (auto) Absolute Neuts (auto) Absolute Nucleated RBC Nucleated RBC % (auto) Smear Tech's Comments PT INR aPTT Heparin Protocol > 200.0 H* D VBG pH VBG pCO2 VBG pO2 VBG HCO3 VBG O2 Saturation VBG Base Excess Sodium Potassium Chloride Carbon Dioxide Anion Gap BUN Creatinine Estim Creat Clear Calc Estimated GFR POC Glucose 372 H* 249 H Random Glucose Lactic Acid F/U @ 4Hr Calcium Phosphorus Magnesium 08/04/22 08/04/22 08/04/22 20:40 21:21 22:37 WBC RBC Hgb Hct MCV MCH MCHC RDW Plt Count MPV Immature Gran % (Auto) Neut % (Auto) Lymph % (Auto) [place] % (Auto) Eos % (Auto) Baso % (Auto) Lymph # (Auto) [place] # (Auto) Eos # (Auto) Baso # (Auto) Abs Immat Gran (auto) Absolute Neuts (auto) Absolute Nucleated RBC Nucleated RBC % (auto) Smear Tech's Comments PT INR aPTT Heparin Protocol VBG pH VBG pCO2 VBG pO2 VBG HCO3 VBG O2 Saturation VBG Base Excess Sodium 135 Potassium 4.8 Chloride 100 Carbon Dioxide 20 L Anion Gap 20 BUN 40 H Creatinine 2.01 H Estim Creat Clear Calc 29.5 Estimated GFR 25 POC Glucose 196 H 168 H Random Glucose 199 H Lactic Acid F/U @ 4Hr Calcium 8.8 Phosphorus Magnesium 08/04/22 08/04/22 08/05/22 22:48 23:27 00:15 WBC RBC Hgb Hct MCV MCH MCHC RDW Plt Count MPV Immature Gran % (Auto) Neut % (Auto) Lymph % (Auto) [place] % (Auto) Eos % (Auto) Baso % (Auto) Lymph # (Auto) [place] # (Auto) Eos # (Auto) Baso # (Auto) Abs Immat Gran (auto) Absolute Neuts (auto) Absolute Nucleated RBC Nucleated RBC % (auto) Smear Tech's Comments PT INR aPTT Heparin Protocol 185.4 H* 76.1 D VBG pH VBG pCO2 VBG pO2 VBG HCO3 VBG O2 Saturation VBG Base Excess Sodium Potassium Chloride Carbon Dioxide Anion Gap BUN Creatinine Estim Creat Clear Calc Estimated GFR POC Glucose 154 H Random Glucose Lactic Acid F/U @ 4Hr Calcium Phosphorus Magnesium 08/05/22 08/05/22 08/05/22 00:22 02:10 04:21 WBC RBC Hgb Hct MCV MCH MCHC RDW Plt Count MPV Immature Gran % (Auto) Neut % (Auto) Lymph % (Auto) [place] % (Auto) Eos % (Auto) Baso % (Auto) Lymph # (Auto) [place] # (Auto) Eos # (Auto) Baso # (Auto) Abs Immat Gran (auto) Absolute Neuts (auto) Absolute Nucleated RBC Nucleated RBC % (auto) Smear Tech's Comments PT INR aPTT Heparin Protocol VBG pH VBG pCO2 VBG pO2 VBG HCO3 VBG O2 Saturation VBG Base Excess Sodium Potassium Chloride Carbon Dioxide Anion Gap BUN Creatinine Estim Creat Clear Calc Estimated GFR POC Glucose 154 H 155 H 159 H Random Glucose Lactic Acid F/U @ 4Hr Calcium Phosphorus Magnesium 08/05/22 08/05/22 08/05/22 05:58 07:44 07:45 WBC RBC Hgb Hct MCV MCH MCHC RDW Plt Count MPV Immature Gran % (Auto) Neut % (Auto) Lymph % (Auto) [place] % (Auto) Eos % (Auto) Baso % (Auto) Lymph # (Auto) [place] # (Auto) Eos # (Auto) Baso # (Auto) Abs Immat Gran (auto) Absolute Neuts (auto) Absolute Nucleated RBC Nucleated RBC % (auto) Smear Tech's Comments PT 14.5 H INR 1.3 H aPTT Heparin Protocol 114.7 H* D VBG pH VBG pCO2 VBG pO2 VBG HCO3 VBG O2 Saturation VBG Base Excess Sodium Potassium Chloride Carbon Dioxide Anion Gap BUN Creatinine Estim Creat Clear Calc Estimated GFR POC Glucose 156 H Random Glucose Lactic Acid F/U @ 4Hr Calcium Phosphorus Magnesium 08/05/22 08/05/22 08/05/22 07:45 07:45 07:47 WBC 23.4 H RBC 2.85 L Hgb 9.4 L Hct 27.8 L MCV 97.5 D MCH 33.0 MCHC 33.8 RDW 14.4 Plt Count 249 MPV 12.8 H Immature Gran % (Auto) 1.0 H Neut % (Auto) 88.9 H Lymph % (Auto) 5.5 L [place] % (Auto) 4.4 Eos % (Auto) 0.1 Baso % (Auto) 0.1 Lymph # (Auto) 1.3 [place] # (Auto) 1.0 Eos # (Auto) 0.0 Baso # (Auto) 0.0 Abs Immat Gran (auto) 0.23 H Absolute Neuts (auto) 20.8 H Absolute Nucleated RBC 0.000 Nucleated RBC % (auto) 0.0 Smear Tech's Comments VERIFIED PT INR aPTT Heparin Protocol VBG pH 7.47 H VBG pCO2 34 VBG pO2 78 VBG HCO3 25 VBG O2 Saturation 95.0 VBG Base Excess 2.1 Sodium 135 Potassium 5.2 H Chloride 100 Carbon Dioxide 24 Anion Gap 16 BUN 45 H Creatinine 1.75 H Estim Creat Clear Calc 33.9 Estimated GFR 29 POC Glucose Random Glucose 137 H Lactic Acid F/U @ 4Hr Calcium 8.5 Phosphorus 2.7 Magnesium 1.5 L 08/05/22 08/05/22 08/05/22 08:15 09:05 11:08 WBC RBC Hgb Hct MCV MCH MCHC RDW Plt Count MPV Immature Gran % (Auto) Neut % (Auto) Lymph % (Auto) [place] % (Auto) Eos % (Auto) Baso % (Auto) Lymph # (Auto) [place] # (Auto) Eos # (Auto) Baso # (Auto) Abs Immat Gran (auto) Absolute Neuts (auto) Absolute Nucleated RBC Nucleated RBC % (auto) Smear Tech's Comments PT INR aPTT Heparin Protocol 90.6 H D VBG pH VBG pCO2 VBG pO2 VBG HCO3 VBG O2 Saturation VBG Base Excess Sodium Potassium Chloride Carbon Dioxide Anion Gap BUN Creatinine Estim Creat Clear Calc Estimated GFR POC Glucose 135 H 178 H Random Glucose Lactic Acid F/U @ 4Hr Calcium Phosphorus Magnesium 08/05/22 08/05/22 11:59 15:26 WBC RBC Hgb Hct MCV MCH MCHC RDW Plt Count MPV Immature Gran % (Auto) Neut % (Auto) Lymph % (Auto) [place] % (Auto) Eos % (Auto) Baso % (Auto) Lymph # (Auto) [place] # (Auto) Eos # (Auto) Baso # (Auto) Abs Immat Gran (auto) Absolute Neuts (auto) Absolute Nucleated RBC Nucleated RBC % (auto) Smear Tech's Comments PT INR aPTT Heparin Protocol VBG pH VBG pCO2 VBG pO2 VBG HCO3 VBG O2 Saturation VBG Base Excess Sodium 133 L Potassium 5.3 H Chloride 97 Carbon Dioxide 27 Anion Gap 14 BUN 45 H Creatinine 1.81 H Estim Creat Clear Calc 32.8 Estimated GFR 28 POC Glucose 215 H Random Glucose 184 H Lactic Acid F/U @ 4Hr Calcium 8.8 Phosphorus Magnesium Progress Note: A&P Assessment and plan (1) NSTEMI (non-ST elevated myocardial infarction): Status: Acute Assessment and Plan: [place] [facility] [place]. Found to have NSTEMI, Congestive heart failure and DKA. Initially treated in the ICU. Troponin greater than 3600. No ischemic changes noted on EKG. Echocardiogram done 08/04/2022 shows EF 35-40%, mild increase in the LV wall thickness, apical lateral and mid anterior lateral hypokinesis. She does have a known history of CAD with prior coronary artery bypass grafting. Current NSTEMI felt to be type 2 event related to atrial flutter and DKA. She has been on heparin drip for anticoagulation. Eventual ischemic valve once medically appropriate. EKG if she does report chest discomfort. (2) CHF (congestive heart failure): Status: Acute Assessment and Plan: Clinical findings of Congestive heart failure this admission. Chest x-ray showed bilateral small effusions, right greater than left. BNP elevated at 853. Echo shows reduced EF 35-40%. She initially had VERN with creatinine 2.53, potassium 7.1. Her home lisinopril and Lasix were held. She was given 1 dose of Lasix 20 mg IV. Fluid balance is currently positive 3.5 L. On exam she does have diminished lung sounds with fine expiratory wheezes. She also has tight pitting edema of her lower extremities. Creatinine improved to 1.81 today, potassium 5.3. She will benefit from further diuresis. Will discuss with Dr Azul. Continue I&O monitoring. Close monitoring of electrolytes and kidney function. (3) Atrial flutter: Status: Inactive Assessment and Plan: Newer finding of atrial flutter. Patient had been on metoprolol for heart rate control. With her heart failure admission her metoprolol was placed on hold and she was given a digoxin load yesterday with last dose at 02:34 today. Heart rate is mostly controlled at present averaging 80s to 90s however it did go up to 130 this afternoon with activity. Avoid use of diltiazem on her with her reduced EF. Eventual plan will be to restart metoprolol 1 Congestive heart failure improved. She denies heart palpitations. She had recently started on Eliquis for anticoagulation. Eliquis was stopped on admission due to her creatinine being elevated. She also had elevated troponin and was put on heparin drip for anticoagulation. At present there is no signs of bleeding. Plan for Eventual transition back to Eliquis. (4) DKA (diabetic ketoacidosis): Status: Acute Assessment and Plan: Managed by the actuarial intern and hospitalist. Clinically improving Time Spent With Patient Time: Total time managing care of this patient today _24___ minutes. Progress Note: Quality Stroke Does the patient have a stroke diagnosis?: No Procedures Date of Service Date of Service: 08/05/22
[2022-08-05] MEDS: Acetaminophen 325 MG TABLET 650 MG PO (16:57)
[2022-08-05 17:01] LABS: PTT Heparin Drip 30.9 SEC (53-77.9)
[2022-08-05] MEDS: Heparin Sodium,Porcine 5,000 UNIT/ML VIAL 8700 UNIT IVPUSH (18:12)
--- NOTE | 2022-08-05 18:31 | PM.EVENT ---
Event Note Date of Service: 08/05/22 Event Note: Patient was downgraded from ICU this afternoon. Patient seen and examined- Physical exam: Unchanged from icu note. Assessment plan: Discussed with ICU in detail length, continue heparin drip for NSTEMI, added IV Lasix for CHF Daily weights,i/o,pt/ptt protcol, monitor renal function and electrolytes closely stella on probable ckd-in setting of chf and recent dka. will add nephro eval. Time Spent With Patient Time: Total time managing care of this patient today ____ minutes.
[2022-08-05 20:04] LABS: Glucose, Whole Blood 163 mg/dL (60-115)
[2022-08-06 00:56] LABS: PTT Heparin Drip > 200.0 SEC (53-77.9)
[2022-08-06 02:41] LABS: Basophils Percent Auto 0.2 % (0-2); Eosinophils Percent Auto 0.1 % (0-4); Hematocrit 29.3 % (37.0-47.0); Hemoglobin 9.7 g/dl (12.0-16.0); Imm Gran Abs Auto 0.13 X10*3/uL (0.00-0.03); Imm Gran Pct Auto 0.7 % (0.0-0.4); Lymphocytes Absolute Auto 2.3 X10*3/uL (1.2-4.9); Lymphocytes Percent Auto 12.7 % (20-40); MANUAL DIFF FLAG SCAN; Mean Corpuscular HGB Conc 33.1 g/dl (31.0-35.0); Mean Corpuscular Hemoglobin 32.4 pg (27.0-33.0); Mean Platelet Volume 13.5 fL (9.4-12.3); Monocytes Absolute Auto 1.2 X10*3/uL (0.1-1.2); Monocytes Percent Auto 6.8 % (2-11); Neutrophils Absolute Auto 14.1 x10*3/uL (2.0-8.3); Neutrophils Percent Auto 79.5 % (45-73); PLT CLUMP 1; Red Blood Count 2.99 X10*6/uL (4.20-5.50); SCAN SMEAR FLAG 1; White Blood Count 17.7 X10*3/uL (4.8-10.8)
[2022-08-06 02:47] LABS: PTT Heparin Drip 103.8 SEC (53-77.9)
[2022-08-06 02:57] LABS: Platelet Count 222 X10*3/uL (160-400); SLIDE REVIEW VERIFIED
[2022-08-06 03:54] VITALS: BP 141/63; PULSE 86; RESP 18; TEMP 36.1; O2SAT 95
[2022-08-06 06:16] LABS: PTT Heparin Drip 30.4 SEC (53-77.9)
[2022-08-06 06:17] LABS: Albumin Level 3.3 g/dL (3.5-5.0); Anion Gap 14 (12-20); Blood Urea Nitrogen 48 mg/dL (9-16); Calcium 8.9 mg/dL (8.4-10.2); Carbon Dioxide 27 mmol/L (22-29); Chloride 99 mmol/L (96-108); Creatinine Clr Calc Pharmacy 35.3; Estimated Glomerular Filt Rate 30; Glucose Random 198 mg/dL (60-115); Magnesium 1.8 mg/dL (1.6-2.6); Phosphorus 3.1 mg/dL (2.7-4.5); Potassium 5.1 mmol/L (3.3-5.1); Sodium 135 mmol/L (135-145)
[2022-08-06 07:53] LABS: Alanine Aminotransferase 68 U/L (0-31); Alkaline Phosphatase 107 U/L (39-117); Aspartate Amino Transferase 46 U/L (5-31); Bilirubin Direct 0.2 mg/dL (0.0-0.5); Bilirubin Total 0.5 mg/dL (0.0-1.0); Total Protein 5.1 g/dL (6.5-8.0)
[2022-08-06 07:58] VITALS: BP 127/59; PULSE 79; RESP 20; TEMP 36.7; O2SAT 98
[2022-08-06 08:32] LABS: B Type Natriuretic Peptide 676 pg/mL (<100)
[2022-08-06 08:37] LABS: Glucose, Whole Blood 170 mg/dL (60-115)
[2022-08-06] MEDS: Furosemide 40 MG/4 ML VIAL 20 MG IVPUSH (08:51)
[2022-08-06] MEDS: Insulin Glargine,Hum.rec.anlog 100 UNIT/ML 10 ML VIAL 20 UNIT SUBCUT (08:51)
[2022-08-06] MEDS: Insulin Lispro 100 UNIT/ML 3 ML VIAL SUBCUT ×4 (08:51→21:34)
[2022-08-06] MEDS: Magnesium Oxide 400 MG TABLET PO ×2 (08:52→16:57)
[2022-08-06] MEDS: cefTRIAXone sodium 1 GM in 0.9 % Sodium Chloride 50 ML IV (09:02)
[2022-08-06 11:09] LABS: Appearance Urine Clear; Color Urine Yellow; Glucose Urine UA Negative (Negative); Leukocyte Esterase Urine Negative (Negative); Nitrite Urine Negative (Negative); PH 5.5 (5.0-9.0); UMIC TRIGGER UA YES; Urine Blood Trace (Negative); Urine Ketones Negative (Negative); Urine Protein 30 (1+) mg/dL (Neg-Trace)
[2022-08-06 11:12] LABS: Bacteria Urine None Seen (None Seen); Hyaline Casts Urine 0-2 /LPF (0-2); RBC Urine 0-2 /HPF (0-2); Squamous Epithelial Cell Urine 0-2 /HPF (0-2); WBC Urine 0-5 /HPF (0-5)
[2022-08-06 11:58] LABS: Glucose, Whole Blood 214 mg/dL (60-115)
--- NOTE | 2022-08-06 12:06 | P.PNIM_ITS ---
Subjective Subjective Date of Service: 08/06/22 Interval History: nstemi, chf Review of Systems sob seeme similar to yesterday no chest pain or abdominal pain still has leg edema 2+ Physical Exam Vital Signs: Vital Signs: Last Vital Signs Temp 98.0 F 08/06/22 07:58 Pulse 79 08/06/22 07:58 Resp 20 08/06/22 07:58 BP 127/59 L 08/06/22 07:58 Pulse Ox 98 08/06/22 07:58 O2 Del Method Room Air 08/06/22 07:58 O2 Flow Rate 1.5 08/05/22 19:41 FiO2 40 08/04/22 22:00 Oxygen Flow Rate 6 08/04/22 09:30 BMI result Body Mass Index 48.2 Appearance: Alert.? Oriented X3.? sob. cvs: rrr, [id number] . res: air entry seems slightly diminshed at bases , few scatter rales abd: no rebound or guarding ,nt, bs present. ext pulses present , no cyanosis , 2+ edema . neuro: axo3 , nonfocal. Objective Data Active Medications Albuterol Sulfate 2.5 mg/ (Ipratropium [place] 0.5 mg) 0 mg INHALE RQ6H WHILE AWAKE PRN PRN Reason: shortness of breath Furosemide (Furosemide 40 Mg/4 Ml Vial) 20 mg IVPUSH BID@0900,1800 MIRNA; Protocol Last Admin: 08/06/22 08:51 Dose: 20 mg Documented By: CHRISTA Heparin Sodium (Porcine) (Heparin Sodium,Porcine 5,000 Unit/Ml Vial) 8,700 unit 80 unit/kg (8700 unit) IVPUSH PROTOCOL BOLUS PRN; Protocol PRN Reason: 80 unit/kg - Heparin Protocol Last Admin: 08/05/22 18:12 Dose: 8,700 unit Documented By: DONA Heparin Sodium (Porcine) (Heparin Sodium,Porcine 5,000 Unit/Ml Vial) 4,300 unit 40 unit/kg (4300 unit) IVPUSH PROTOCOL BOLUS PRN; Protocol PRN Reason: 40 unit/kg - Heparin Protocol Dextrose (D10) 250 mls @ 750 mls/hr IV Q30M PRN PRN Reason: BG < 70 Heparin Sodium/Sodium Chloride (Heparin Sodium,Porcine/1/2ns) 25,000 unit in 250 mls @ 0 mls/hr IVCONT .Q0M [facility]; Protocol Last Titration: 08/06/22 07:38 Dose: 8 units/kg/hr, 8.69 mls/hr Documented By: DAKOTA Co-signed By: CHRISTA Ceftriaxone Sodium 1 gm/ (Sodium Chloride) 50 mls @ 100 mls/hr IV Q24H [facility] Last Infusion: 08/06/22 09:39 Dose: 0 mls/hr Documented By: CHRISTA Insulin Glargine (Insulin Glargine,Hum.Rec.Anlog 100 Unit/Ml 10 Ml Vial) 20 unit SUBCUT DAILY [facility] Last Admin: 08/06/22 08:51 Dose: 20 unit Documented By: CHRISTA Insulin Human Lispro (Insulin Lispro 100 Unit/Ml 3 Ml Vial) 0 unit SUBCUT QIDACHS [facility]; Protocol Last Admin: 08/06/22 08:51 Dose: 2 unit Documented By: CHRISTA Magnesium Oxide (Magnesium Oxide 400 Mg Tablet) 400 mg PO BIDPC [facility] Last Admin: 08/06/22 08:52 Dose: 400 mg Documented By: CHRISTA Labs 08/06/22 02:10 08/06/22 05:42 Labs: Laboratory Results - last 24 hr 08/05/22 08/05/22 08/05/22 11:59 15:26 16:17 MCV MCH MCHC RDW Plt Count MPV Immature Gran % (Auto) Neut % (Auto) Lymph % (Auto) [place] % (Auto) Eos % (Auto) Baso % (Auto) Lymph # (Auto) [place] # (Auto) Eos # (Auto) Baso # (Auto) Abs Immat Gran (auto) Absolute Neuts (auto) Absolute Nucleated RBC Nucleated RBC % (auto) Smear Tech's Comments aPTT Heparin Protocol 30.9 L D Anion Gap 14 Estim Creat Clear Calc 32.8 Estimated GFR 28 POC Glucose 215 H Random Glucose 184 H Calcium 8.8 Phosphorus Magnesium Total Bilirubin Direct Bilirubin AST ALT Alkaline Phosphatase B-Natriuretic Peptide Total Protein Albumin Urine Color Urine Appearance Urine pH Ur Specific [place] Urine Protein Urine Glucose (UA) Urine Ketones Urine Blood Urine Nitrite Ur Leukocyte Esterase Urine RBC Urine WBC Ur Squamous Epith Cells Urine Bacteria Hyaline Casts 04/07/23 04/08/23 04/08/23 19:50 00:19 02:10 MCV 98.0 MCH 32.4 MCHC 33.1 RDW 15.0 Plt Count 222 MPV 13.5 H Immature Gran % (Auto) 0.7 H Neut % (Auto) 79.5 H Lymph % (Auto) 12.7 L [place] % (Auto) 6.8 Eos % (Auto) 0.1 Baso % (Auto) 0.2 Lymph # (Auto) 2.3 [place] # (Auto) 1.2 Eos # (Auto) 0.0 Baso # (Auto) 0.0 Abs Immat Gran (auto) 0.13 H Absolute Neuts (auto) 14.1 H Absolute Nucleated RBC 0.000 Nucleated RBC % (auto) 0.0 Smear Tech's Comments VERIFIED aPTT Heparin Protocol > 200.0 H* D Anion Gap Estim Creat Clear Calc Estimated GFR POC Glucose 163 H Random Glucose Calcium Phosphorus Magnesium Total Bilirubin Direct Bilirubin AST ALT Alkaline Phosphatase B-Natriuretic Peptide Total Protein Albumin Urine Color Urine Appearance Urine pH Ur Specific [place] Urine Protein Urine Glucose (UA) Urine Ketones Urine Blood Urine Nitrite Ur Leukocyte Esterase Urine RBC Urine WBC Ur Squamous Epith Cells Urine Bacteria Hyaline Casts 08/06/22 08/06/22 08/06/22 02:10 02:10 05:42 MCV MCH MCHC RDW Plt Count MPV Immature Gran % (Auto) Neut % (Auto) Lymph % (Auto) [place] % (Auto) Eos % (Auto) Baso % (Auto) Lymph # (Auto) [place] # (Auto) Eos # (Auto) Baso # (Auto) Abs Immat Gran (auto) Absolute Neuts (auto) Absolute Nucleated RBC Nucleated RBC % (auto) Smear Tech's Comments aPTT Heparin Protocol 103.8 H D Anion Gap 14 Estim Creat Clear Calc 35.3 Estimated GFR 30 POC Glucose Random Glucose 198 H Calcium 8.9 Phosphorus 3.1 Magnesium 1.8 Total Bilirubin 0.5 Direct Bilirubin 0.2 AST 46 H ALT 68 H Alkaline Phosphatase 107 B-Natriuretic Peptide 676 H Total Protein 5.1 L Albumin 3.3 L Urine Color Urine Appearance Urine pH Ur Specific [place] Urine Protein Urine Glucose (UA) Urine Ketones Urine Blood Urine Nitrite Ur Leukocyte Esterase Urine RBC Urine WBC Ur Squamous Epith Cells Urine Bacteria Hyaline Casts 08/06/22 08/06/22 08/06/22 05:42 08:25 10:40 MCV MCH MCHC RDW Plt Count MPV Immature Gran % (Auto) Neut % (Auto) Lymph % (Auto) [place] % (Auto) Eos % (Auto) Baso % (Auto) Lymph # (Auto) [place] # (Auto) Eos # (Auto) Baso # (Auto) Abs Immat Gran (auto) Absolute Neuts (auto) Absolute Nucleated RBC Nucleated RBC % (auto) Smear Tech's Comments aPTT Heparin Protocol 30.4 L D Anion Gap Estim Creat Clear Calc Estimated GFR POC Glucose 170 H Random Glucose Calcium Phosphorus Magnesium Total Bilirubin Direct Bilirubin AST ALT Alkaline Phosphatase B-Natriuretic Peptide Total Protein Albumin Urine Color Yellow Urine Appearance Clear Urine pH 5.5 Ur Specific [place] 1.010 Urine Protein 30 (1+) H Urine Glucose (UA) Negative Urine Ketones Negative Urine Blood Trace H Urine Nitrite Negative Ur Leukocyte Esterase Negative Urine RBC 0-2 Urine WBC 0-5 Ur Squamous Epith Cells 0-2 Urine Bacteria None Seen Hyaline Casts 0-2 08/06/22 11:54 MCV MCH MCHC RDW Plt Count MPV Immature Gran % (Auto) Neut % (Auto) Lymph % (Auto) [place] % (Auto) Eos % (Auto) Baso % (Auto) Lymph # (Auto) [place] # (Auto) Eos # (Auto) Baso # (Auto) Abs Immat Gran (auto) Absolute Neuts (auto) Absolute Nucleated RBC Nucleated RBC % (auto) Smear Tech's Comments aPTT Heparin Protocol Anion Gap Estim Creat Clear Calc Estimated GFR POC Glucose 214 H Random Glucose Calcium Phosphorus Magnesium Total Bilirubin Direct Bilirubin AST ALT Alkaline Phosphatase B-Natriuretic Peptide Total Protein Albumin Urine Color Urine Appearance Urine pH Ur Specific [place] Urine Protein Urine Glucose (UA) Urine Ketones Urine Blood Urine Nitrite Ur Leukocyte Esterase Urine RBC Urine WBC Ur Squamous Epith Cells Urine Bacteria Hyaline Casts Microbiology Microbiology Results: Microbiology 08/04/22 11:03 Blood Culture - Preliminary Blood - Venous No growth after 24 hours. 08/04/22 10:31 Blood Culture - Preliminary Blood - Venous No growth after 24 hours. Assessment and Plan (1) NSTEMI (non-ST elevated myocardial infarction): Status: Acute (2) Acute kidney injury: Status: Acute (3) DKA (diabetic ketoacidosis): Status: Acute (4) Acute hyperkalemia: Status: Acute Plan 67-year-old lady with underlying history of obesity, COPD, CAD status post CABG, diabetes mellitus, hypothyroidism admitted on 08/04/2022 for initial complaints of dyspnea.? On ER evaluation patient? noted to have family weighted troponins and diabetic ketoacidosis.? She was started on insulin drip IV fluids and per cardiology service recommendations on heparin drip and admitted to the intensive care unit- seems dka improved , transferred to floor 08/05/22. 1. Nstemi: started on iv heparin drip-will need 48hrs ,moniter pt/ptt continue asa, bb,not on statin? elevated lft's , we will repeat lft's cardiology followin 2. chf : HF with reduced EF: baseline weight (last outpatient visit was 188 lbs or 85 kg), today she is 700 ml neg total i/o unclear bnp improvin ,sob also imprving ,has 2+ leg edema cotninue iv lasix, renal function and electrolytes monitoring. 3.VERN on possible ckd 3?:? cardiorenal vs dka might contributed. cr is around 1.68 range cr in 2019 system around 1.35 crcl in 's renal us, ua ,cr added nephro eval 4.hyperkalemia -improved with diuresis. Magnesium is borderline: Added p.o. magnesium. 5. copd : stable continue nebs prn 6.leucocytosis: multifactorial:dka,smoker,obese. imrpovin cxr -no inflitrate,ua neg, blood culture prelim-24 hr neg no fevers on ceftriaxone as per icu will add ID eval 7.Obesity : Encouraged to lose weight. dvt Prophylax : iv heparin Inpatient need: NSTEMI, CHF- need IV anticoagulation, IV Lasix for CHF, monitoring I&O and renal function electrolytes. Also pending blood culture needs to be negative 48 hours. Time Spent With Patient Time: Total time managing care of this patient today ____ minutes. Quality Stroke Does the patient have a stroke diagnosis?: No VTE Prior VTE?: No VTE Risk Level:: Medical - moderate - high VTE Device Contraindication: Treatment Not Indicated VTE Drug Contraindication: N/A - Med Ordered
[2022-08-06] MEDS: Magnesium Sulfate/D5W 1 GM/100 ML PIGGYBACK IV (12:31)
--- NOTE | 2022-08-06 13:11 | PM.PNCARD ---
Subjective Subjective Date of Service: 08/06/22 Principal diagnosis: NSTEMI, CHF, atrial flutter,DKA Interval history: Seen examined at bedside. Quite upset and tearful that she wants to go home. Quite overloaded clinically. Physical Exam Vital Signs: Last Vital Signs Temp 98.0 F 08/06/22 07:58 Pulse 79 08/06/22 07:58 Resp 20 08/06/22 07:58 BP 127/59 L 08/06/22 07:58 Pulse Ox 98 08/06/22 07:58 O2 Del Method Room Air 08/06/22 07:58 O2 Flow Rate 1.5 08/05/22 19:41 FiO2 40 08/04/22 22:00 Oxygen Flow Rate 6 08/04/22 09:30 BMI result Body Mass Index 48.2 GENERAL APPEARANCE: Tearful and crying. Wants to go home. NECK: no carotid bruit, positive jugular venous distention. SKIN: no suspicious lesions, warm and dry. HEART: no murmurs, regular rate and rhythm. LUNGS: Crackles both bases. ABDOMEN: soft, nontender. EXTREMITIES: Positive edema. PERIPHERAL PULSES: equal. NEUROLOGIC: No gross deficits, AAO X 3 Objective Labs and Meds 08/06/22 02:10 08/06/22 05:42 Lab results: Laboratory Results - last 24 hr 08/05/22 08/05/22 08/05/22 15:26 16:17 19:50 WBC RBC Hgb Hct MCV MCH MCHC RDW Plt Count MPV Immature Gran % (Auto) Neut % (Auto) Lymph % (Auto) [place] % (Auto) Eos % (Auto) Baso % (Auto) Lymph # (Auto) [place] # (Auto) Eos # (Auto) Baso # (Auto) Abs Immat Gran (auto) Absolute Neuts (auto) Absolute Nucleated RBC Nucleated RBC % (auto) Smear Tech's Comments aPTT Heparin Protocol 30.9 L D Sodium Potassium Chloride Carbon Dioxide Anion Gap BUN Creatinine Estim Creat Clear Calc Estimated GFR POC Glucose 215 H 163 H Random Glucose Calcium Phosphorus Magnesium Total Bilirubin Direct Bilirubin AST ALT Alkaline Phosphatase B-Natriuretic Peptide Total Protein Albumin Urine Color Urine Appearance Urine pH Ur Specific [place] Urine Protein Urine Glucose (UA) Urine Ketones Urine Blood Urine Nitrite Ur Leukocyte Esterase Urine RBC Urine WBC Ur Squamous Epith Cells Urine Bacteria Hyaline Casts 08/06/22 08/06/22 08/06/22 00:19 02:10 02:10 WBC 17.7 H RBC 2.99 L Hgb 9.7 L Hct 29.3 L MCV 98.0 MCH 32.4 MCHC 33.1 RDW 15.0 Plt Count 222 MPV 13.5 H Immature Gran % (Auto) 0.7 H Neut % (Auto) 79.5 H Lymph % (Auto) 12.7 L [place] % (Auto) 6.8 Eos % (Auto) 0.1 Baso % (Auto) 0.2 Lymph # (Auto) 2.3 [place] # (Auto) 1.2 Eos # (Auto) 0.0 Baso # (Auto) 0.0 Abs Immat Gran (auto) 0.13 H Absolute Neuts (auto) 14.1 H Absolute Nucleated RBC 0.000 Nucleated RBC % (auto) 0.0 Smear Tech's Comments VERIFIED aPTT Heparin Protocol > 200.0 H* D 103.8 H D Sodium Potassium Chloride Carbon Dioxide Anion Gap BUN Creatinine Estim Creat Clear Calc Estimated GFR POC Glucose Random Glucose Calcium Phosphorus Magnesium Total Bilirubin Direct Bilirubin AST ALT Alkaline Phosphatase B-Natriuretic Peptide Total Protein Albumin Urine Color Urine Appearance Urine pH Ur Specific [place] Urine Protein Urine Glucose (UA) Urine Ketones Urine Blood Urine Nitrite Ur Leukocyte Esterase Urine RBC Urine WBC Ur Squamous Epith Cells Urine Bacteria Hyaline Casts 08/06/22 08/06/22 08/06/22 02:10 05:42 05:42 WBC RBC Hgb Hct MCV MCH MCHC RDW Plt Count MPV Immature Gran % (Auto) Neut % (Auto) Lymph % (Auto) [place] % (Auto) Eos % (Auto) Baso % (Auto) Lymph # (Auto) [place] # (Auto) Eos # (Auto) Baso # (Auto) Abs Immat Gran (auto) Absolute Neuts (auto) Absolute Nucleated RBC Nucleated RBC % (auto) Smear Tech's Comments aPTT Heparin Protocol 30.4 L D Sodium 135 Potassium 5.1 Chloride 99 Carbon Dioxide 27 Anion Gap 14 BUN 48 H Creatinine 1.68 H Estim Creat Clear Calc 35.3 Estimated GFR 30 POC Glucose Random Glucose 198 H Calcium 8.9 Phosphorus 3.1 Magnesium 1.8 Total Bilirubin 0.5 Direct Bilirubin 0.2 AST 46 H ALT 68 H Alkaline Phosphatase 107 B-Natriuretic Peptide 676 H Total Protein 5.1 L Albumin 3.3 L Urine Color Urine Appearance Urine pH Ur Specific [place] Urine Protein Urine Glucose (UA) Urine Ketones Urine Blood Urine Nitrite Ur Leukocyte Esterase Urine RBC Urine WBC Ur Squamous Epith Cells Urine Bacteria Hyaline Casts 08/06/22 08/06/22 08/06/22 08:25 10:40 11:54 WBC RBC Hgb Hct MCV MCH MCHC RDW Plt Count MPV Immature Gran % (Auto) Neut % (Auto) Lymph % (Auto) [place] % (Auto) Eos % (Auto) Baso % (Auto) Lymph # (Auto) [place] # (Auto) Eos # (Auto) Baso # (Auto) Abs Immat Gran (auto) Absolute Neuts (auto) Absolute Nucleated RBC Nucleated RBC % (auto) Smear Tech's Comments aPTT Heparin Protocol Sodium Potassium Chloride Carbon Dioxide Anion Gap BUN Creatinine Estim Creat Clear Calc Estimated GFR POC Glucose 170 H 214 H Random Glucose Calcium Phosphorus Magnesium Total Bilirubin Direct Bilirubin AST ALT Alkaline Phosphatase B-Natriuretic Peptide Total Protein Albumin Urine Color Yellow Urine Appearance Clear Urine pH 5.5 Ur Specific [place] 1.010 Urine Protein 30 (1+) H Urine Glucose (UA) Negative Urine Ketones Negative Urine Blood Trace H Urine Nitrite Negative Ur Leukocyte Esterase Negative Urine RBC 0-2 Urine WBC 0-5 Ur Squamous Epith Cells 0-2 Urine Bacteria None Seen Hyaline Casts 0-2 Progress Note: A&P Assessment and plan (1) NSTEMI (non-ST elevated myocardial infarction): Status: Acute (2) Atrial flutter: Status: Inactive (3) Acute on chronic heart failure: Status: Acute Plan 67-year-old female with history of bypass surgery who had normal ejection fraction the past and recently developed atrial flutter with worsening shortness of breath due to COPD and congestive heart failure. She was admitted to ICU for diabetic ketoacidosis and has been downgraded at this stage. Appears to be significantly volume overloaded. Increasing Lasix to 40 mg IV b.i.d.. Resuming digoxin at 125 mcg every other day. As you diurese and she starts improving we will add low-dose beta-jessica to her regimen. She has low ejection fraction with EF of 35-40% which is new which can be due to atrial flutter but she did have significant coronary disease in the past and presented with elevated troponins on this visit as possible she had graft closure. In any case currently her treatment is medical. We will diurese and continue Lequraymond at this stage. She should stay on baby aspirin. We will follow along with you. Thank you for allowing me to participate in the care of your patient. Please feel free to contact me if you have any questions. Time Spent With Patient Time: Total time managing care of this patient today ____ minutes. Progress Note: Quality Stroke Does the patient have a stroke diagnosis?: No Procedures Date of Service Date of Service: 08/06/22
[2022-08-06] MEDS: Heparin Sodium,Porcine/1/2NS 25,000 UNIT/250 ML IV.SOLN 10.86 UNIT IVCONT (14:31)
[2022-08-06] MEDS: Heparin Sodium,Porcine 5,000 UNIT/ML VIAL 4300 UNIT IVPUSH (14:35)
[2022-08-06] MEDS: Digoxin 0.125 MG TABLET PO (14:38)
[2022-08-06] MEDS: Metoprolol Tartrate 12.5 MG HALFTAB PO ×2 (14:39→21:34)
[2022-08-06 15:53] VITALS: BP 130/60; PULSE 80; RESP 20; TEMP 36.1; O2SAT 95
[2022-08-06] MEDS: Furosemide 40 MG/4 ML VIAL IVPUSH (16:57)
[2022-08-06 17:01] LABS: Glucose, Whole Blood 255 mg/dL (60-115)
[2022-08-06 19:30] VITALS: BP 134/60; PULSE 80; RESP 20; TEMP 36.1; O2SAT 96
[2022-08-06 20:32] LABS: Glucose, Whole Blood 239 mg/dL (60-115)
[2022-08-06 21:24] LABS: PTT Heparin Drip > 200.0 SEC (53-77.9)
[2022-08-06] MEDS: hydrOXYzine HCL 25 MG TABLET PO (21:34)
[2022-08-06 22:57] LABS: PTT Heparin Drip 56.1 SEC (53-77.9)
--- NOTE | 2022-08-06 23:20 | P.CNID_ITS ---
History of Present Illness Data of Consult Service Date: 08/06/22 Requesting physician: Dominick Erickson Primary Care Provider: Harshal Newberry PA-C HPI Reason for consult: leukocytosis She presents with shortness of breath for several days and then 89% oxygen saturation of room air. She has WBC of 23.4. She has basilar atelectasis Review of Systems Review of Systems: Yes all other systems are reviewed and are negative PMFSH Past Medical History Medical History (Updated 08/06/22 @ 23:25 by Allison Sun MD) CAD (coronary artery disease) Cervical cancer screening CKD (chronic kidney disease) COPD (chronic obstructive pulmonary disease) Diabetes High cholesterol Hypothyroidism Leukocytosis Post-menopausal Screening for breast cancer Family History Family History Mother Diabetes CAD (coronary artery disease) Family history: reviewed and not pertinent Surgical History Surgical History Hx of coronary artery bypass graft S/P cardiac catheterization Social History Social History Household Members: Spouse and Family Housing: House Do you presently have visiting nurse or other home services: Yes ([employer]NAGER) Alcohol intake: never Patient Tobacco Use Status: Former Tobacco user Quit Date: 07/04/22 Tobacco use type: Cigarette Cigarette Packs Per Day: 2 Cigarettes Per Day: 40.0 Years Smoked: 40+/- years Smoked in Last 30 Days: Yes Patient Interested in Nicotine Replacement: No Patient Given Instructions on How to Stop Smoking: Yes Date Education Initiated: 08/04/22 Second Hand Smoke Exposure: No Use of substances other than those prescribed or required for medical reasons: No Last Used Substance: Unknown Currently Displaying Signs/Symptoms of Drug Intoxication Withdrawal: No Any prior treatment program specific to substance use: No Have you been hit, kicked, punched, or otherwise hurt by someone within the past year? If so, by whom?: No Do you feel safe in your current relationship?: Yes Is there a partner from a previous relationship who is making you feel unsafe now?: No Are you made to feel afraid or neglected: No [facility] Practices: none Advance Directives: No Advance Directives Information Provided: No Advance Directives on File: No Do you have thoughts of harming others: None Do you have a plan to hurt others: No Plan Recently lost weight without trying: No Eating poorly because of decreased appetite: No Nutrition Risks: Dental problems Patient : No : No Poor oral hygiene: Yes service: No Current occupational status: disabled Meds Allergies Allergy/AdvReac Type Severity Reaction Status Date / Time Penicillins Allergy Mild UNKNOWN Verified 07/21/22 13:38 buprenorphine [Suboxone] Allergy Unknown unknown Verified 07/21/22 13:38 naloxone [Suboxone] Allergy Unknown unknown Verified 07/21/22 13:38 Active Medications: Current Medications Albuterol/Ipratropium (Albuterol/Iprat 2.5/0.5mg 3 Ml Ampul.Neb) 3 ml INHALE Q3H PRN PRN Reason: sob Aspirin (Aspirin 81 Mg Tab.Chew) 81 mg PO DAILY [facility] Albuterol Sulfate 2.5 mg/ (Ipratropium [place] 0.5 mg) 0 mg INHALE RQ6H WHILE AWAKE PRN PRN Reason: shortness of breath Digoxin (Digoxin 0.125 Mg Tablet) 0.125 mg PO Q2D [facility] Last Admin: 08/06/22 14:38 Dose: 0.125 mg Ergocalciferol (Ergocalciferol (Vitamin D2) 1,250 Mcg Capsule) 1,250 mcg PO MO [facility] Furosemide (Furosemide 40 Mg/4 Ml Vial) 40 mg IVPUSH BID@0900,1800 [facility]; Protocol Last Admin: 08/06/22 17:48 Dose: Not Given Heparin Sodium (Porcine) (Heparin Sodium,Porcine 5,000 Unit/Ml Vial) 8,700 unit 80 unit/kg (8700 unit) IVPUSH PROTOCOL BOLUS PRN; Protocol PRN Reason: 80 unit/kg - Heparin Protocol Last Admin: 08/05/22 18:12 Dose: 8,700 unit Heparin Sodium (Porcine) (Heparin Sodium,Porcine 5,000 Unit/Ml Vial) 4,300 unit 40 unit/kg (4300 unit) IVPUSH PROTOCOL BOLUS PRN; Protocol PRN Reason: 40 unit/kg - Heparin Protocol Last Admin: 08/06/22 14:35 Dose: 4,300 unit Dextrose (D10) 250 mls @ 750 mls/hr IV Q30M PRN PRN Reason: BG < 70 Heparin Sodium/Sodium Chloride (Heparin Sodium,Porcine/1/2ns) 25,000 unit in 250 mls @ 0 mls/hr IVCONT .Q0M [facility]; Protocol Last Titration: 08/06/22 23:07 Dose: 6 units/kg/hr, 6.52 mls/hr Ceftriaxone Sodium 1 gm/ (Sodium Chloride) 50 mls @ 100 mls/hr IV Q24H [facility] Last Infusion: 08/06/22 09:39 Dose: Infused Insulin Glargine (Insulin Glargine,Hum.Rec.Anlog 100 Unit/Ml 10 Ml Vial) 20 unit SUBCUT DAILY [facility] Last Admin: 08/06/22 08:51 Dose: 20 unit Insulin Human Lispro (Insulin Lispro 100 Unit/Ml 3 Ml Vial) 0 unit SUBCUT QIDACHS [facility]; Protocol Last Admin: 08/06/22 21:34 Dose: 4 unit Levothyroxine Sodium (Levothyroxine Sodium 150 Mcg Tablet) 150 mcg PO DAILY [facility] Loratadine (Loratadine 10 Mg Tablet) 10 mg PO DAILY PRN PRN Reason: Allergic Symptoms Magnesium Oxide (Magnesium Oxide 400 Mg Tablet) 400 mg PO BIDPC [facility] Last Admin: 08/06/22 16:57 Dose: 400 mg Metoprolol Tartrate (Metoprolol Tartrate 12.5 Mg Halftab) 12.5 mg PO TID [facility]; Protocol Last Admin: 08/06/22 21:34 Dose: 12.5 mg Home Medications Medication Instructions Recorded Confirmed Last Taken Type aspirin 81 mg chewable tablet 1 tab PO DAILY 02/12/20 08/04/22 06/29/22 History lorazepam 0.5 mg tablet 0.5 mg PO DAILY PRN anxiety 02/12/20 08/04/22 06/29/22 History cetirizine 10 mg tablet 10 mg PO DAILY PRN Allergic 12/03/20 08/04/22 06/29/22 History Symptoms fluticasone fur. 200 mcg-umeclid 1 inh inhalation DAILY 06/30/22 08/04/22 06/29/22 History 62.5 mcg-vilant 25 mcg inhalat.powder (Trelegy Ellipta) levothyroxine 150 mcg tablet 1 tab PO DAILY 06/30/22 08/04/22 06/29/22 History glipizide 5 mg tablet 5 mg PO BID 08/04/22 08/04/22 Unknown History lisinopril 2.5 mg tablet 2.5 mg PO DAILY 08/04/22 08/04/22 Unknown History Physical Exam Vital Signs: Vital Signs: Last Vital Signs Temp 97 F 08/06/22 19:30 Pulse 80 08/06/22 19:30 Resp 20 08/06/22 19:30 BP 134/60 08/06/22 19:30 Pulse Ox 96 08/06/22 19:30 O2 Del Method Nasal Cannula 08/06/22 19:30 O2 Flow Rate 1.5 08/06/22 19:30 FiO2 40 08/04/22 22:00 Oxygen Flow Rate 6 08/04/22 09:30 BMI result Body Mass Index 48.2 Resp: Other: mild shortness of breath Results Labs 08/06/22 02:10 08/06/22 05:42 Labs: Short CBC 08/06/22 Range/Units 02:10 WBC 17.7 H (4.8-10.8) X10*3/uL Hgb 9.7 L (12.0-16.0) g/dl Hct 29.3 L (37.0-47.0) % Plt Count 222 (160-400) X10*3/uL BMP 08/06/22 05:42 Sodium 135 Potassium 5.1 Chloride 99 Carbon Dioxide 27 BUN 48 H Creatinine 1.68 H Calcium 8.9 Liver Function 08/06/22 Range/Units 05:42 Total Bilirubin 0.5 (0.0-1.0) mg/dL Direct Bilirubin 0.2 (0.0-0.5) mg/dL AST 46 H (5-31) U/L ALT 68 H (0-31) U/L Alkaline Phosphatase 107 (39-117) U/L Albumin 3.3 L (3.5-5.0) g/dL Urine 08/06/22 Range/Units 10:40 Urine Color Yellow Urine Appearance Clear Urine pH 5.5 (5.0-9.0) Ur Specific [place] 1.010 (1.005-1.025) Urine Protein 30 (1+) H (Neg-Trace) mg/dL Urine Glucose (UA) Negative (Negative) mg/dL Microbiology Microbiology Results: Microbiology 08/04/22 11:03 Blood - Venous Blood Culture - Preliminary No growth after 48 hours. 08/04/22 10:31 Blood - Venous Blood Culture - Preliminary No growth after 48 hours. Assessment and Plan (1) Leukocytosis: Status: Acute Leukocytosis due to early bronchopneumonia likely She has some leukemoid reaction She has some improvement. Plan Would change Ceftriaxone to Ceftin and Doxycycline for one week tomorrow if doing well and leukocytosis same or less tomorrow. Time Spent With Patient Time: Total time managing care of this patient today ____ minutes.
[2022-08-06 23:53] LABS: Creatinine Urine 35.88 mg/dL; Microalbum/Creatinine Ratio Ur 732.9 ug/mg cr; Protein/Creatinine Ratio, Ur 0.95 (<0.2); Total Protein Urine Random 34 mg/dL (<12)
[2022-08-07 06:16] LABS: PTT Heparin Drip 45.6 SEC (53-77.9)
[2022-08-07 06:30] LABS: Anion Gap 13 (12-20); Blood Urea Nitrogen 44 mg/dL (9-16); Calcium 9.1 mg/dL (8.4-10.2); Carbon Dioxide 33 mmol/L (22-29); Chloride 96 mmol/L (96-108); Creatinine Clr Calc Pharmacy 36.2; Estimated Glomerular Filt Rate 31; Glucose Random 145 mg/dL (60-115); Potassium 4.9 mmol/L (3.3-5.1); Sodium 137 mmol/L (135-145)
[2022-08-07 07:54] VITALS: BP 128/65; PULSE 79; RESP 22; TEMP 36.1; O2SAT 96
[2022-08-07 08:18] LABS: Glucose, Whole Blood 181 mg/dL (60-115)
[2022-08-07] MEDS: cefTRIAXone sodium 1 GM in 0.9 % Sodium Chloride 50 ML IV (08:27)
[2022-08-07] MEDS: Insulin Lispro 100 UNIT/ML 3 ML VIAL SUBCUT ×3 (08:28→16:42)
[2022-08-07] MEDS: Insulin Glargine,Hum.rec.anlog 100 UNIT/ML 10 ML VIAL 20 UNIT SUBCUT (08:28)
[2022-08-07] MEDS: Magnesium Oxide 400 MG TABLET PO ×2 (08:29→16:42)
[2022-08-07] MEDS: Aspirin 81 MG TAB.CHEW PO (08:29)
[2022-08-07] MEDS: Doxycycline Monohydrate 100 MG CAPSULE PO (08:29)
[2022-08-07] MEDS: Furosemide 40 MG/4 ML VIAL IVPUSH ×2 (08:29→16:42)
[2022-08-07] MEDS: Levothyroxine Sodium 150 MCG TABLET PO (08:29)
[2022-08-07] MEDS: Metoprolol Tartrate 12.5 MG HALFTAB PO ×2 (08:29→15:12)
[2022-08-07] MEDS: Apixaban 5 MG TABLET PO (09:20)
--- NOTE | 2022-08-07 10:42 | P.PNIM_ITS ---
Subjective Subjective Date of Service: 08/07/22 Interval History: nstemi, chf Review of Systems no chest pain or sob seems little improving,no fever still has leg edema 2+ Physical Exam Vital Signs: Vital Signs: Last Vital Signs Temp 97.0 F 08/07/22 07:54 Pulse 79 08/07/22 07:54 Resp 22 H 08/07/22 07:54 BP 128/65 08/07/22 07:54 Pulse Ox 96 08/07/22 07:54 O2 Del Method Nasal Cannula 08/07/22 07:54 O2 Flow Rate 2 08/07/22 07:54 FiO2 40 08/04/22 22:00 Oxygen Flow Rate 6 08/04/22 09:30 BMI result Body Mass Index 48.2 Appearance: Alert.? Oriented X3.? sob. cvs: rrr, [id number] . res: air entry seems slightly diminshed at bases , few scatter rales abd: no rebound or guarding ,nt, bs present. ext pulses present , no cyanosis , 2+ edema . neuro: axo3 , nonfocal Objective Data Active Medications Albuterol/Ipratropium (Albuterol/Iprat 2.5/0.5mg 3 Ml Ampul.Neb) 3 ml INHALE Q3H PRN PRN Reason: sob Apixaban (Apixaban 5 Mg Tablet) 5 mg PO BID [facility] Last Admin: 08/07/22 09:20 Dose: 5 mg Documented By: KADI Aspirin (Aspirin 81 Mg Tab.Chew) 81 mg PO DAILY [facility] Last Admin: 08/07/22 08:29 Dose: 81 mg Documented By: VIOLETTA Albuterol Sulfate 2.5 mg/ (Ipratropium [place] 0.5 mg) 0 mg INHALE RQ6H WHILE AWAKE PRN PRN Reason: shortness of breath Digoxin (Digoxin 0.125 Mg Tablet) 0.125 mg PO Q2D [facility] Last Admin: 08/06/22 14:38 Dose: 0.125 mg Documented By: CHRISTA Doxycycline Monohydrate (Doxycycline Monohydrate 100 Mg Capsule) 100 mg PO Q12H [facility] Last Admin: 08/07/22 08:29 Dose: 100 mg Documented By: VIOLETTA Ergocalciferol (Ergocalciferol (Vitamin D2) 1,250 Mcg Capsule) 1,250 mcg PO MO [facility] Furosemide (Furosemide 40 Mg/4 Ml Vial) 40 mg IVPUSH BID@0900,1800 [facility]; Protocol Last Admin: 08/07/22 08:29 Dose: 40 mg Documented By: VIOLETTA Dextrose (D10) 250 mls @ 750 mls/hr IV Q30M PRN PRN Reason: BG < 70 Ceftriaxone Sodium 1 gm/ (Sodium Chloride) 50 mls @ 100 mls/hr IV Q24H [facility] Last Infusion: 08/07/22 09:20 Dose: 0 mls/hr Documented By: KADI Insulin Glargine (Insulin Glargine,Hum.Rec.Anlog 100 Unit/Ml 10 Ml Vial) 20 unit SUBCUT DAILY [facility] Last Admin: 08/07/22 08:28 Dose: 20 unit Documented By: VIOLETTA Insulin Human Lispro (Insulin Lispro 100 Unit/Ml 3 Ml Vial) 0 unit SUBCUT QIDACHS [facility]; Protocol Last Admin: 08/07/22 08:28 Dose: 2 unit Documented By: VIOLETTA Levothyroxine Sodium (Levothyroxine Sodium 150 Mcg Tablet) 150 mcg PO DAILY [facility] Last Admin: 08/07/22 08:29 Dose: 150 mcg Documented By: VIOLETTA Loratadine (Loratadine 10 Mg Tablet) 10 mg PO DAILY PRN PRN Reason: Allergic Symptoms Magnesium Oxide (Magnesium Oxide 400 Mg Tablet) 400 mg PO BIDPC [facility] Last Admin: 08/07/22 08:29 Dose: 400 mg Documented By: VIOLETTA Metoprolol Tartrate (Metoprolol Tartrate 12.5 Mg Halftab) 12.5 mg PO TID [facility]; Protocol Last Admin: 08/07/22 08:29 Dose: 12.5 mg Documented By: VIOLETTA Labs 08/06/22 02:10 08/07/22 05:56 Labs: Laboratory Results - last 24 hr 08/06/22 08/06/22 08/06/22 10:40 10:40 11:54 aPTT Heparin Protocol Anion Gap Estim Creat Clear Calc Estimated GFR POC Glucose 214 H Random Glucose Calcium Urine Color Yellow Urine Appearance Clear Urine pH 5.5 Ur Specific [place] 1.010 Urine Protein 30 (1+) H Urine Glucose (UA) Negative Urine Ketones Negative Urine Blood Trace H Urine Nitrite Negative Ur Leukocyte Esterase Negative Urine RBC 0-2 Urine WBC 0-5 Ur Squamous Epith Cells 0-2 Urine Bacteria None Seen Hyaline Casts 0-2 U Random Total Protein 34 H Urine Creatinine 35.88 Urine Microalbumin 263.0 Microalb/Creat Ratio 732.9 Protein/Creatinin Ratio 0.95 H 08/06/22 08/06/22 08/06/22 13:39 16:52 20:26 aPTT Heparin Protocol 49.0 L D Anion Gap Estim Creat Clear Calc Estimated GFR POC Glucose 255 H 239 H Random Glucose Calcium Urine Color Urine Appearance Urine pH Ur Specific [place] Urine Protein Urine Glucose (UA) Urine Ketones Urine Blood Urine Nitrite Ur Leukocyte Esterase Urine RBC Urine WBC Ur Squamous Epith Cells Urine Bacteria Hyaline Casts U Random Total Protein Urine Creatinine Urine Microalbumin Microalb/Creat Ratio Protein/Creatinin Ratio 08/06/22 08/06/22 08/07/22 20:37 22:34 05:56 aPTT Heparin Protocol > 200.0 H* D 56.1 D 45.6 L Anion Gap Estim Creat Clear Calc Estimated GFR POC Glucose Random Glucose Calcium Urine Color Urine Appearance Urine pH Ur Specific [place] Urine Protein Urine Glucose (UA) Urine Ketones Urine Blood Urine Nitrite Ur Leukocyte Esterase Urine RBC Urine WBC Ur Squamous Epith Cells Urine Bacteria Hyaline Casts U Random Total Protein Urine Creatinine Urine Microalbumin Microalb/Creat Ratio Protein/Creatinin Ratio 08/07/22 08/07/22 05:56 08:14 aPTT Heparin Protocol Anion Gap 13 Estim Creat Clear Calc 36.2 Estimated GFR 31 POC Glucose 181 H Random Glucose 145 H Calcium 9.1 Urine Color Urine Appearance Urine pH Ur Specific [place] Urine Protein Urine Glucose (UA) Urine Ketones Urine Blood Urine Nitrite Ur Leukocyte Esterase Urine RBC Urine WBC Ur Squamous Epith Cells Urine Bacteria Hyaline Casts U Random Total Protein Urine Creatinine Urine Microalbumin Microalb/Creat Ratio Protein/Creatinin Ratio Microbiology Microbiology Results: Microbiology 08/04/22 11:03 Blood Culture - Preliminary Blood - Venous No growth after 48 hours. 08/04/22 10:31 Blood Culture - Preliminary Blood - Venous No growth after 48 hours. Assessment and Plan (1) NSTEMI (non-ST elevated myocardial infarction): Status: Acute (2) Acute kidney injury: Status: Acute (3) DKA (diabetic ketoacidosis): Status: Acute (4) Acute hyperkalemia: Status: Acute Plan 67-year-old lady with underlying history of obesity, COPD, CAD status post CABG, diabetes mellitus, hypothyroidism admitted on 08/04/2022 for initial complaints of dyspnea.? On ER evaluation patient? noted to have family weighted troponins and diabetic ketoacidosis.? She was started on insulin drip IV fluids and per cardiology service recommendations on heparin drip and admitted to the intensive care unit- seems dka improved , transferred to floor 08/05/22. 1. Nstemi: continue asa, bb,not on statin? elevated lft's ,repeat lft's somewhat improving,completed 48 hrs heparin drip. aflutter hx: continue digoxin ,bb. cardiology followin: contine asa,bb,recently started on eliquis ( aflutter). 2. chf : HF with reduced EF: baseline weight (last outpatient visit was 188 lbs or 85 kg), today she is 700 ml neg total i/o unclear last 2 days 1.2 liter neg bnp improvin ,sob also imprving ,has 2+ leg edema adjusted iv lasix, renal function and electrolytes monitoring. 3.VERN on possible ckd 3?:? cardiorenal vs dka might contributed. cr is around 1.68 range cr in 2019 system around 1.35 crcl in 40's renal us, ua ,cr added nephro eval 4.hyperkalemia -improved with diuresis. Magnesium is borderline: Added p.o. magnesium. 5. copd : stable continue nebs prn 6.leucocytosis: multifactorial:dka,smoker,obese. imrpovin cxr -no inflitrate,ua neg, blood culture prelim-24 hr neg no fevers on ceftriaxone as per icu will add ID eval 7.Obesity : Encouraged to lose weight. dvt Prophylax : iv heparin Inpatient need: CHF- need IV anticoagulation, IV Lasix for CHF, monitoring I&O and renal function electrolytes. Time Spent With Patient Time: Total time managing care of this patient today ____ minutes. Quality Stroke Does the patient have a stroke diagnosis?: No VTE Prior VTE?: No VTE Risk Level:: Medical - moderate - high VTE Device Contraindication: Treatment Not Indicated VTE Drug Contraindication: N/A - Med Ordered
--- NOTE | 2022-08-07 11:31 | P.PNCA_ITS ---
Subjective Subjective Date of Service: 08/07/22 Principal diagnosis: NSTEMI, CHF, atrial flutter,DKA Interval history: Seen examined at bedside. Crying that she wants to go home. Still appears volume overloaded. Physical Exam Vital Signs: Last Vital Signs Temp 97.0 F 08/07/22 07:54 Pulse 79 08/07/22 07:54 Resp 22 H 08/07/22 07:54 BP 128/65 08/07/22 07:54 Pulse Ox 96 08/07/22 07:54 O2 Del Method Nasal Cannula 08/07/22 07:54 O2 Flow Rate 2 08/07/22 07:54 FiO2 40 08/04/22 22:00 Oxygen Flow Rate 6 08/04/22 09:30 BMI result Body Mass Index 48.2 GENERAL APPEARANCE: Tearful and crying. Wants to go home. NECK: no carotid bruit, mild jugular venous distention. SKIN: no suspicious lesions, warm and dry. HEART: no murmurs, regular rate and rhythm. LUNGS: Clear to auscultation. ABDOMEN: soft, nontender. EXTREMITIES: Mild edema. PERIPHERAL PULSES: equal. NEUROLOGIC: No gross deficits, AAO X 3 Objective Labs and Meds 08/06/22 02:10 08/07/22 05:56 Lab results: Laboratory Results - last 24 hr 08/06/22 08/06/22 08/06/22 10:40 11:54 13:39 aPTT Heparin Protocol 49.0 L D Sodium Potassium Chloride Carbon Dioxide Anion Gap BUN Creatinine Estim Creat Clear Calc Estimated GFR POC Glucose 214 H Random Glucose Calcium U Random Total Protein 34 H Urine Creatinine 35.88 Urine Microalbumin 263.0 Microalb/Creat Ratio 732.9 Protein/Creatinin Ratio 0.95 H 08/06/22 08/06/22 08/06/22 16:52 20:26 20:37 aPTT Heparin Protocol > 200.0 H* D Sodium Potassium Chloride Carbon Dioxide Anion Gap BUN Creatinine Estim Creat Clear Calc Estimated GFR POC Glucose 255 H 239 H Random Glucose Calcium U Random Total Protein Urine Creatinine Urine Microalbumin Microalb/Creat Ratio Protein/Creatinin Ratio 08/06/22 08/07/22 08/07/22 22:34 05:56 05:56 aPTT Heparin Protocol 56.1 D 45.6 L Sodium 137 Potassium 4.9 Chloride 96 Carbon Dioxide 33 H Anion Gap 13 BUN 44 H Creatinine 1.64 H Estim Creat Clear Calc 36.2 Estimated GFR 31 POC Glucose Random Glucose 145 H Calcium 9.1 U Random Total Protein Urine Creatinine Urine Microalbumin Microalb/Creat Ratio Protein/Creatinin Ratio 08/07/22 08:14 aPTT Heparin Protocol Sodium Potassium Chloride Carbon Dioxide Anion Gap BUN Creatinine Estim Creat Clear Calc Estimated GFR POC Glucose 181 H Random Glucose Calcium U Random Total Protein Urine Creatinine Urine Microalbumin Microalb/Creat Ratio Protein/Creatinin Ratio Imaging Radiologist's impression: Impressions Renal Ultrasound 08/06/22 13:03 IMPRESSION: The kidneys have normal echotexture. No acute sonographic abnormalities. No renal stones or hydronephrosis.. Progress Note: A&P Assessment and plan (1) Acute on chronic heart failure: Status: Acute (2) NSTEMI (non-ST elevated myocardial infarction): Status: Acute (3) Atrial flutter: Status: Acute Plan 67-year-old female with complex cardiovascular medical issues. She has advanced COPD. She has diastolic heart failure in the past and diabetes. She is status post bypass surgery. She presented with diabetic ketoacidosis and respiratory distress. She had atrial flutter with tachycardia. Echocardiography has shown EF 35-40% with lateral wall motion abnormality. Her high sensitivity troponin levels were more than 3600. EKG showing loss of R- waves laterally. I think her presentation was due to many issues but clearly she had NSTEMI. I do not think she is a candidate for aggressive procedures currently. I think we stop the aspirin and put her on Plavix 75 mg along with the apixaban. As she follows up in office will discuss whether we do diagnostic angiography on her. It appears she probably close 1 of her grafts and generally they are not salvageable. She has atrial flutter which is improved with digoxin 125 mcg every other day. I think she can be restarted on her home dose of metoprolol 50 mg twice a day at discharge. Would hold lisinopril on discharge as she had acute kidney injury which is recovering. Lasix should be increased to 40 mg twice a day. We will arrange follow-up for her. Clinically she has improved and is currently miserable and crying that she wants to go home. I think she can be discharged home and we will arrange follow-up for her. Thank you for allowing me to participate in the care of your patient. Please feel free to contact me if you have any questions. Time Spent With Patient Time: Total time managing care of this patient today ____ minutes. Progress Note: Quality Stroke Does the patient have a stroke diagnosis?: No Procedures Date of Service Date of Service: 08/07/22
[2022-08-07 11:59] LABS: Glucose, Whole Blood 232 mg/dL (60-115)
[2022-08-07] MEDS: Clopidogrel Bisulfate 75 MG TABLET PO (12:04)
--- NOTE | 2022-08-07 12:33 | MHC.CM.PN ---
PT MEDICALLY CLEAED FOR D/C HOME W/NEW [facility] FOR SN AND [facility]UMP OF [facility]/FAMILY SUPPORT, FAMILY FOR TRANSPORT
--- NOTE | 2022-08-07 13:43 | PM.PNNEP ---
Subjective Subjective Date of Service: 08/07/22 Principal diagnosis: feels better Interval history: nstemi, chf Physical Exam Vital Signs: Vital Signs: Last Vital Signs Temp 97.0 F 08/07/22 07:54 Pulse 79 08/07/22 07:54 Resp 22 H 08/07/22 07:54 BP 128/65 08/07/22 07:54 Pulse Ox 96 08/07/22 07:54 O2 Del Method Nasal Cannula 08/07/22 07:54 O2 Flow Rate 2 08/07/22 07:54 FiO2 40 08/04/22 22:00 Oxygen Flow Rate 6 08/04/22 09:30 BMI result Body Mass Index 48.2 GENERAL APPEARANCE: Tearful and crying. Wants to go home. NECK: no carotid bruit, mild jugular venous distention. SKIN: no suspicious lesions, warm and dry. HEART: no murmurs, regular rate and rhythm. LUNGS: Clear to auscultation. ABDOMEN: soft, nontender. EXTREMITIES: Mild edema. PERIPHERAL PULSES: equal. NEUROLOGIC: No gross deficits, AAO X 3 Objective Data Labs 08/06/22 02:10 08/07/22 05:56 Labs: Laboratory Results - last 24 hr 08/06/22 08/06/22 08/06/22 10:40 13:39 16:52 aPTT Heparin Protocol 49.0 L D Sodium Potassium Chloride Carbon Dioxide Anion Gap BUN Creatinine Estim Creat Clear Calc Estimated GFR POC Glucose 255 H Random Glucose Calcium U Random Total Protein 34 H Urine Creatinine 35.88 Urine Microalbumin 263.0 Microalb/Creat Ratio 732.9 Protein/Creatinin Ratio 0.95 H 08/06/22 08/06/22 08/06/22 20:26 20:37 22:34 aPTT Heparin Protocol > 200.0 H* D 56.1 D Sodium Potassium Chloride Carbon Dioxide Anion Gap BUN Creatinine Estim Creat Clear Calc Estimated GFR POC Glucose 239 H Random Glucose Calcium U Random Total Protein Urine Creatinine Urine Microalbumin Microalb/Creat Ratio Protein/Creatinin Ratio 08/07/22 08/07/22 08/07/22 05:56 05:56 08:14 aPTT Heparin Protocol 45.6 L Sodium 137 Potassium 4.9 Chloride 96 Carbon Dioxide 33 H Anion Gap 13 BUN 44 H Creatinine 1.64 H Estim Creat Clear Calc 36.2 Estimated GFR 31 POC Glucose 181 H Random Glucose 145 H Calcium 9.1 U Random Total Protein Urine Creatinine Urine Microalbumin Microalb/Creat Ratio Protein/Creatinin Ratio 08/07/22 11:47 aPTT Heparin Protocol Sodium Potassium Chloride Carbon Dioxide Anion Gap BUN Creatinine Estim Creat Clear Calc Estimated GFR POC Glucose 232 H Random Glucose Calcium U Random Total Protein Urine Creatinine Urine Microalbumin Microalb/Creat Ratio Protein/Creatinin Ratio Microbiology Microbiology Results: Microbiology 08/04/22 11:03 Blood - Venous Blood Culture - Preliminary No growth after 48 hours. 08/04/22 10:31 Blood - Venous Blood Culture - Preliminary No growth after 48 hours. Procedures Date of Service Date of Service: 08/07/22 Assessment & Plan Assessment and plan (1) Acute kidney injury: Status: Acute (2) DKA (diabetic ketoacidosis): Status: Acute (3) CKD (chronic kidney disease): Status: Acute Plan 1. VERN 2. CKD 3 3. DKA 4. Edema Agree with PO Diuretics CR is better\ Hold NEGRO for now F/u with Dr. Sierra - HE can decideon NEGRO use as out pt Salt and fluid restriction d/w medical team Time Spent With Patient Time: Total time managing care of this patient today ____ minutes. Progress Note: Quality Stroke Does the patient have a stroke diagnosis?: No
[2022-08-07 13:47] LABS: PTT Heparin Drip 35.8 SEC (53-77.9)
[2022-08-07 14:29] VITALS: PULSE 118; PULSE 120; PULSE 99; O2SAT 90; O2SAT 92; O2SAT 93
--- NOTE | 2022-08-07 15:04 | P.DS_ITS ---
DS: Providers Provider Date of Service: 08/07/22 Date of admission: 08/04/22 11:44 Date of discharge: 08/07/22 Primary care physician: Harshal Newberry PA-C Consults: 08/04/22 14:11 Consult to Cardiology Routine Consulting Provider: [facility] [place] [facility] Reason for consultation: ACS 08/05/22 18:34 Consult to Nephrology Routine Consulting Provider: Kai Parry Reason for consultation: vern on ckd Has provider been notified: No 08/06/22 12:41 Consult to Infectious Diseases Routine Consulting Provider: [facility] [place] Infectious Disease Reason for consultation: leucocytosis unclear etiology Has provider been notified: No Attending physician on discharge: Dominick Erickson Discharging clinician: Dominick Erickson DS: Diagnosis Discharge Diagnosis (1) Acute kidney injury: Status: Acute (2) DKA (diabetic ketoacidosis): Status: Acute (3) CKD (chronic kidney disease): Status: Acute DS: Summary Hospital Course Hospital Course: 67-year-old lady with underlying history of obesity, COPD, CAD status post CABG, diabetes mellitus, hypothyroidism admitted on 08/04/2022 for initial complaints of dyspnea.? On ER evaluation patient? noted to have family weighted troponins and diabetic ketoacidosis.? Her EKG showed no acute ST changes.? She was started on insulin drip IV fluids and per cardiology service recommendations on heparin drip and admitted to the intensive care unit. Hospital course: Patient came to the hospital because of diabetic ketoacidosis: Was started on insulin drip and hydration in addition patient was also found to have NSTEMI so was treated for heart attack with IV heparin, hospital course complicated by CHF, seen by Cardiology and was treated with IV Lasix. Currently patient shortness of breath seems to be improved significantly, denies any chest pain, received heart attack and CHF treatment: Diuresed well. BNP is improving. Diabetes: Fingersticks are acceptable, patient was given diabetic education and insulin. CHF education given, patient is to call outpatient PCP if gains 2 lb or more weight in a week. Patient will be going home with p.o. Lasix, also was switched to Plavix and aspirin was stopped. In addition patient was started on digoxin for irregular heartbeat, and con tinued metoprolol. Patient had VERN: Multifactorial(DKA, poor oral intake, has possible underlying CKD 3also): Continue Lasix, monitor BMP and electrolytes out patiently, follow-up with Nephrology outpatient. And Patient also had pneumonia: Started on IV antibiotics seems to be improving, switched to p.o. antibiotics upon discharge. Above management discussed the patient adrenal as she understand and in agreement with the above plan, time spent 50 minute. plan: Time Spent with Patient Time attestation: Total time managing care of this patient today ____ minutes. Discharge coordination time: Greater than 30 minutes Quality: Safe Use of Opioids Does Pt have an Active Cancer Diagnosis on the Problem List?: No Quality: Stroke Does the patient have a stroke diagnosis?: No Physical Exam Vital Signs: Vital Signs: Last Vital Signs Temp 97.0 F 08/07/22 07:54 Pulse 79 08/07/22 07:54 Resp 22 H 08/07/22 07:54 BP 128/65 08/07/22 07:54 Pulse Ox 96 08/07/22 07:54 O2 Del Method Nasal Cannula 08/07/22 07:54 O2 Flow Rate 2 08/07/22 07:54 FiO2 40 08/04/22 22:00 Oxygen Flow Rate 6 08/04/22 09:30 BMI result Body Mass Index 48.2 Appearance: Alert.? Oriented X3.? sob. cvs: rrr, [id number] . res: air entry seems slightly diminshed at bases , few scatter rales abd: no rebound or guarding ,nt, bs present. ext pulses present , no cyanosis , 2+ edema . neuro: axo3 , nonfocal DS: Data Data Completed and Pending Labs on day of discharge: Laboratory Results - last 24 hr 08/06/22 08/06/22 08/06/22 10:40 16:52 20:26 aPTT Heparin Protocol Sodium Potassium Chloride Carbon Dioxide Anion Gap BUN Creatinine Estim Creat Clear Calc Estimated GFR POC Glucose 255 H 239 H Random Glucose Calcium U Random Total Protein 34 H Urine Creatinine 35.88 Urine Microalbumin 263.0 Microalb/Creat Ratio 732.9 Protein/Creatinin Ratio 0.95 H 08/06/22 08/06/22 08/07/22 20:37 22:34 05:56 aPTT Heparin Protocol > 200.0 H* D 56.1 D 45.6 L Sodium Potassium Chloride Carbon Dioxide Anion Gap BUN Creatinine Estim Creat Clear Calc Estimated GFR POC Glucose Random Glucose Calcium U Random Total Protein Urine Creatinine Urine Microalbumin Microalb/Creat Ratio Protein/Creatinin Ratio 08/07/22 08/07/22 08/07/22 05:56 08:14 11:47 aPTT Heparin Protocol Sodium 137 Potassium 4.9 Chloride 96 Carbon Dioxide 33 H Anion Gap 13 BUN 44 H Creatinine 1.64 H Estim Creat Clear Calc 36.2 Estimated GFR 31 POC Glucose 181 H 232 H Random Glucose 145 H Calcium 9.1 U Random Total Protein Urine Creatinine Urine Microalbumin Microalb/Creat Ratio Protein/Creatinin Ratio 08/07/22 13:21 aPTT Heparin Protocol 35.8 L D Sodium Potassium Chloride Carbon Dioxide Anion Gap BUN Creatinine Estim Creat Clear Calc Estimated GFR POC Glucose Random Glucose Calcium U Random Total Protein Urine Creatinine Urine Microalbumin Microalb/Creat Ratio Protein/Creatinin Ratio Preliminary micro results at discharge 08/04/22 11:03 Blood Culture - Preliminary Blood - Venous No growth after 48 hours. 08/04/22 10:31 Blood Culture - Preliminary Blood - Venous No growth after 48 hours. Imaging Chest x-ray: Radiologist's impression: ITS Impressions Chest X-Ray 08/04/22 09:38 IMPRESSION: * Cardiomegaly without overt pulmonary edema. * Small pleural effusions (right larger than left). * Persistent nonspecific opacities -likely atelectasis - within the lower lung zones. Renal Ultrasound 08/06/22 13:03 IMPRESSION: The kidneys have normal echotexture. No acute sonographic abnormalities. No renal stones or hydronephrosis.. Discharge Plan Discharge Anticipated Discharge Date/Time: 08/07/22 12:48 Patient Disposition: Home Health Service Discharge Diagnosis: DKA, CHF, NSTEMI, possible pneumonia Referrals: [facility] [Outside] - 1 Day (RESIDENTIAL, A NURSE WILL BE CONTACTING YOU TO SET UP FIRST VISIT. ) Kai Parry MD [Physician] - 1 Week (follow up outpatient) Harshal Newberry PA-C [Primary Care Provider] - 1 Week Discharge Medications: New (DME) pen needle, diabetic 32 gauge x 1/4 needle Qty: 100 0RF Rx Instructions: Use four times a day or as directed. clopidogrel [Plavix] 75 mg tablet 75 mg PO DAILY Qty: 30 0RF insulin glargine [Lantus Solostar U-100 Insulin] 100 unit/mL (3 mL) insulin pen 20 unit subcut QAM Qty: 15 0RF digoxin 125 mcg (0.125 mg) Tablet 0.125 mg PO Q2D Qty: 15 0RF cefuroxime axetil 500 mg tablet 500 mg PO BID Qty: 14 0RF doxycycline hyclate 100 mg capsule 100 mg PO BID Qty: 14 0RF insulin lispro [Humalog KwikPen Insulin] 100 unit/mL insulin pen 0 sliding scale dose SUBCUT QIDACHS Qty: 15 0RF Rx Instructions: Blood Sugar: <150 - 0 units 151-200 - 2 units 201-250 - 4 units 251-300 - 6 units 301-350 - 8 units >350 - 10 units Continued (DME) blood-glucose meter [FreeStyle Lite Meter] Kit See Rx Instructions .ROUTE .MEDSUPPLY Qty: 1 0RF Rx Instructions: Test Daily (DME) lancets [FreeStyle Lancets] 28 gauge misc See Rx Instructions .ROUTE .MEDSUPPLY Qty: 100 0RF Rx Instructions: Daily (DME) FreeStyle Lite Strips Strip See Rx Instructions .Route Qty: 100 0RF Rx Instructions: test twice a day (DME) cane Device See Rx Instructions .Route Qty: 1 0RF Rx Instructions: As directed levalbuterol tartrate [Xopenex HFA] 45 mcg/actuation HFA aerosol inhaler 2 inh inhalation Q6H PRN (Reason: shortness of breath or wheezing) Qty: 15 0RF ergocalciferol (vitamin D2) 1,250 mcg (50,000 unit) capsule 1,250 mcg PO MO Qty: 12 1RF metoprolol tartrate 50 mg tablet 50 mg PO BID Qty: 180 1RF cetirizine 10 mg Tablet 10 mg PO DAILY PRN (Reason: Allergic Symptoms) levothyroxine 150 mcg tablet 1 tab PO DAILY Trelegy Ellipta 200-62.5-25 mcg blister with device 1 inh inhalation DAILY lorazepam 0.5 mg tablet 0.5 mg PO DAILY PRN (Reason: anxiety) Eliquis 5 mg tablet 5 mg PO BID Qty: 60 3RF (DME) nebulizers [AeroEclipse II Nebulizer] [facility] [place] Instructions .Route Qty: 1 0RF Rx Instructions: As directed albuterol sulfate 1.25 mg/3 mL solution for nebulization 1.25 mg inhalation QID PRN (Reason: shortness of breath or wheezing) Qty: 90 3RF Changed furosemide [Lasix] 40 mg tablet 40 mg PO BID Qty: 60 0RF Discontinued lisinopril 2.5 mg tablet 2.5 mg PO DAILY glipizide 5 mg tablet 5 mg PO BID aspirin 81 mg tablet,chewable 1 tab PO DAILY Discharge Orders: Discharge Order (Routine); Ordered 08/07/22 Ordered By: Dominick Erickson Diet: Advance to usual diet Activity on Discharge: As tolerated Stand Alone Forms: Patient Portal Discharge page Other Ambulatory Orders: Basic Metabolic Panel (Routine) Timeframe: 1 Week Facility: [facility] - Location: Laboratory Ordered By: Dominick Erickson B Type Natriuretic Peptide (Routine) Timeframe: 1 Week Facility: [facility] - Location: Laboratory Ordered By: Dominick Erickson Complete Blood Count no Diff (Routine) Timeframe: 1 Week Facility: [facility] - Location: Laboratory Ordered By: Dominick Erickson Hemoglobin A1c (Routine) Timeframe: 1 Week Facility: [facility] - Location: Laboratory Ordered By: Dominick Erickson Care Plan Goals: Patient came to the hospital because of diabetic ketoacidosis: Was started on insulin drip and hydration in addition patient was also found to have NSTEMI so was treated for heart attack with IV heparin, hospital course complicated by CHF, seen by Cardiology and was treated with IV Lasix. Currently patient shortness of breath seems to be improved significantly, denies any chest pain, received heart attack and CHF treatment: Diuresed well. BNP is improving. Diabetes: Fingersticks are acceptable, patient was given diabetic education and insulin. CHF education given, patient is to call outpatient PCP if gains 2 lb or more weight in a week. Patient will be going home with p.o. Lasix, also was switched to Plavix and aspirin was stopped. In addition patient was started on digoxin for irregular heartbeat, and continued metoprolol. Patient had VERN: Multifactorial(DKA, poor oral intake, has possible underlying CKD 3also): Continue Lasix, monitor BMP and electrolytes out patiently, follow-up with Nephrology outpatient. And Patient also had pneumonia: Started on IV antibiotics seems to be improving, switched to p.o. antibiotics upon discharge. Above management discussed the patient adrenal as she understand and in agreement with the above plan, time spent 50 minute. Health Concerns: As above. Plan of Treatment: As above. Assessment: As above. Patient Instructions: Heart Attack (DC), Heart Failure (DC), Acute Kidney Injury (DC)
[2022-08-07 15:54] VITALS: BP 119/66; PULSE 79; RESP 20; TEMP 36.2; O2SAT 94
[2022-08-07 16:27] LABS: Glucose, Whole Blood 164 mg/dL (60-115)
--- NOTE | 2022-08-08 09:11 | CONS_ITS ---
DATE OF SERVICE: 08/06/2022 REASON FOR CONSULTATION: Consult is requested by the medical team to evaluate and help in management of the patient's renal insufficiency. HISTORY OF PRESENT ILLNESS: The patient is a 67-year-old female with past medical history of COPD; history of coronary artery disease, status post CABG; type 2 diabetes mellitus, who was admitted on 08/04, with an initial complaint of dyspnea. In the ER, the patient was evaluated and found to have elevated troponin, DKA. EKG showed no acute CVA changes. She was initiated on IV fluids and per Cardiology initially on heparin drip and admitted to the ICU. Her DKA improved and she was transferred to the medical floor. On admission, patient's creatinine was 2.53, and presently a creatinine is improved to 1.68. Renal consult has been requested to help with management of her acute kidney injury superimposed on chronic kidney disease. Review of patient's lab shows patient's creatinine has been ranging anywhere between 1.1-1.6, dating back to 2019. She is resting in the bed. Complains of lower extremity swelling. There is no dysuria, urgency of urination. The shortness of breath is improved. She denies any diarrhea, nausea, vomiting. She denies using any nonsteroidal anti-inflammatory agents. She has history of following up with a licensing representative who is not a privilege in [facility]. REVIEW OF SYSTEMS: As noted above. Other systems reviewed and negative. PAST MEDICAL HISTORY: Includes history of coronary artery disease, history of type 2 diabetes mellitus, history of COPD, obesity, history of CABG, hypothyroidism, CKD with baseline creatinine as mentioned before. She also has hypocalcemia. FAMILY HISTORY: Includes mother with diabetes, coronary artery disease. PAST SURGICAL HISTORY: Include history of CABG and cardiac catheterization. PERSONAL AND SOCIAL HISTORY: Patient does not drink alcohol. She continues to be a smoker for more than 40 years. Denies recreational drug use. ALLERGIES: INCLUDE ALLERGIES TO PENICILLIN, SUBOXONE, NALOXONE. HOME MEDICATIONS: Include aspirin, lorazepam, cetrizine, fluticasone, levothyroxine, glipizide, and lisinopril. PHYSICAL EXAMINATION: GENERAL: Patient is resting in the bed. Awake, alert, and oriented x3. No significant distress. VITAL SIGNS: Blood pressure was 134/60, pulse 80, afebrile. HEENT: Pupils equal, round, and reactive bilaterally light. No jugular venous distention is noted. Neck was supple. No thyromegaly is noted. Oral mucosa is moist. There is no scleral icterus or conjunctival congestion. CARDIOVASCULAR SYSTEM: S1, S2 without rub or murmur. RESPIRATORY SYSTEM: Decreased in bases. No crepitation or rhonchi is noted. ABDOMEN: Obese, soft. Bowel sounds normal. EXTREMITIES: Showed 1 to 2+ edema. There is no peripheral cyanosis or clubbing. LABORATORY DATA: Done today, WBC 70.7, hemoglobin 9.7, hematocrit 29.3. Sodium was 135, potassium 5.1, chloride 99, CO2 27, BUN 48, creatinine 1.68. Estimated GFR was 30. Glucose is 239, calcium 8.9, phosphorus 3.1, magnesium 1.9. AST and ALT were slightly elevated. Albumin 3.3. Urinalysis shows yellow urine, which is clear, specific gravity 1.001, pH 5.5, urine rbc's and wbc's were normal. IMPRESSION: 1. A 67-year-old female with acute kidney injury. Acute kidney injury in this patient likely with prerenal azotemia in the setting of diabetic ketoacidosis/poly urea and dehydration. She was also on an NEGRO inhibitor, lisinopril, which could have contributed to her renal insufficiency. She had an elevated troponin, possibly renal hypoperfusion due to cardiac reasons as well. Renal function is already improved. At this juncture, I do not think, patient has acute GN/interstitial disease. The patient did have a renal ultrasound which showed a normal-sized kidney without any hydronephrosis. 2. Chronic kidney disease stage 3 at baseline in the setting of longstanding diabetes and hypertension. 3. Diabetic ketoacidosis, which is resolved. 4. Anemia. We need to rule out iron deficiency. The patient could have a component of erythropoietin deficiency. RECOMMENDATIONS: At this juncture, I agree with holding off on IV fluids as she is edematous. I also agree with giving the patient intravenous diuretics to improve her volume status. We should follow her renal function closely. As mentioned before, patient's creatinine has already improved. She does not have any obstructive uropathy, any unbalance, replace as needed. I agree with holding off on NEGRO inhibitors on this patient. Antibiotics as per medical team. Thank you for allowing me to participate in medical management of the patient. MD SILVIA Fuentes/POLO / [id number]
--- NOTE | 2022-08-08 09:15 | CONS_ITS ---
DATE OF SERVICE: 08/06/2022 REASON FOR CONSULTATION: Consult requested by the medical team to evaluate and help in management of patient with renal insufficiency. HISTORY OF PRESENT ILLNESS: The patient is a 67-year-old female with past medical history of COPD, history of coronary artery disease, status post CABG, type 2 diabetes mellitus, who has been admitted with complaints of dyspnea. The patient was evaluated in the ER and noted to have elevated troponin and DKA. EKG showed no acute ST T-wave changes, and she was started on insulin drip. She was also initiated on IV heparin drip and admitted to the intensive care unit on 08/04. Her overall condition improved and is presently in the medical floor. Renal consultation has been requested. DICTATION ENDS HERE MD SILVIA Fuentes/POLO / [id number]
== END 2022-08-07 18:41 | disposition home health service (06) | DRG 637 ==
LOC: HO.ED 11:50 → HO.EDOVER 12:21 → HO.ICU 12:29 → HO.IMC 08-05 14:54
PROVIDERS: Internal Medicine; Registered Nurse Community Health; Admitting Provider Internal Medicine Pulmonary Disease; Emergency Provider Emergency Medicine; PCP Internal Medicine Cardiovascular Disease; Visit Provider Internal Medicine
DX: E11.10 Type 2 diabetes mellitus with ketoacidosis without coma (principal); I21.4 Non-ST elevation (NSTEMI) myocardial infarction; J18.0 Bronchopneumonia, unspecified organism; I50.23 Acute on chronic systolic (congestive) heart failure; J96.01 Acute respiratory failure with hypoxia; Z68.43 Body mass index [BMI] 50.0-59.9, adult; I48.92 Unspecified atrial flutter; I25.10 Atherosclerotic heart disease of native coronary artery without angina pectoris; E78.00 Pure hypercholesterolemia, unspecified; E66.9 Obesity, unspecified; E87.5 Hyperkalemia; E03.9 Hypothyroidism, unspecified; N18.30 Chronic kidney disease, stage 3 unspecified; E11.22 Type 2 diabetes mellitus with diabetic chronic kidney disease; J44.9 Chronic obstructive pulmonary disease, unspecified; Z20.822 Contact with and (suspected) exposure to COVID-19; Z95.1 Presence of aortocoronary bypass graft; Z87.891 Personal history of nicotine dependence; Z88.0 Allergy status to penicillin; Z79.4 Long term (current) use of insulin; Z79.01 Long term (current) use of anticoagulants; Z79.02 Long term (current) use of antithrombotics/antiplatelets; Z79.890 Hormone replacement therapy; Z79.899 Other long term (current) drug therapy
CPT/HCPCS: 36415; 71045; 76775; 80048; 80053; 80076; 81001; 82040; 82043; 82803; 82947; 83605; 83735; 83880; 84100; 84156; 84484; 85025; 85610; 85730; 87040; 87635; 93005; 93308; 99285; J0696; J1160; J1643; J1940; J2250; J2405; J3010; J3475

== ENCOUNTER → 2022-08-08 12:27 | Outpatient (REF) | payer MEDICARE, MEDICAID, SELFPAY | LOC: HO.SL 12:27 | PROVIDERS: PCP Internal Medicine; Visit Provider Nurse Practitioner Family | DX: Z13.89 Encounter for screening for other disorder (principal) ==

== ENCOUNTER 2022-08-15 22:12 | Emergency (ER) | payer MEDICARE, MEDICAID, SELFPAY ==
--- NOTE | ~2022-08-15 | XR_ITS ---
EXAMINATION: XR CHEST CLINICAL INFORMATION: Shortness of breath COMPARISON: Chest x-ray 08/04/2022 TECHNIQUE: Frontal portable view of the chest was obtained. 11:30 PM FINDINGS: Status post median sternotomy. Pulmonary vascular congestion without overt pulmonary edema. Haziness at the lung bases consistent with pleural effusions, right greater than left. XR/XR chest 1V IMPRESSION: Pulmonary vascular congestion without overt pulmonary edema. Bilateral pleural effusions.
[2022-08-15 22:17] VITALS: BP 120/84; BP 151/70; PULSE 102; PULSE 90; RESP 30; TEMP 36.8; O2SAT 92; BMI 52.1
--- NOTE | 2022-08-15 22:31 | ECG_ITS ---
Test Reason : SOB Blood Pressure : / mmHG Vent. Rate : 092 BPM Atrial Rate : 300 BPM P-R Int : 000 ms QRS Dur : 104 ms QT Int : 350 ms P-R-T Axes : 259 069 220 degrees QTc Int : 432 ms Atrial flutter with variable A-V block Cannot rule out Anterior infarct (cited on or before 30-DEC-2017) ST & T wave abnormality, consider inferolateral ischemia Abnormal ECG When compared with ECG of 04-AUG-2022 11:17, No significant changes seen Referred By: Jamar Chaidez Electronically Signed By:FIDELIA HORN
--- NOTE | 2022-08-15 22:37 | ED_ITS ---
HPI - General Adult General Chief complaint: Dyspnea Stated complaint: difficulty breathing Time Seen by Provider: 08/15/22 22:25 Source: patient, EMS, RN notes reviewed and old records reviewed Mode of arrival: EMS Limitations: no limitations History of Present Illness HPI narrative: 67-year-old female with a past medical history significant for atrial flutter on Eliquis, acute on chronic heart failure, NSTEMI, chronic kidney disease, diabetes, COPD not on home O2 history of CVA presenting for evaluation of sh ortness of breath. Patient was admitted to our ICU on 08/04/2022 for DKA was found to have pneumonia and subsequently had an NSTEMI. She went home on antibiotics, changes to her insulin as well as Plavix to the aspirin and Lasix 40 mg b.i.d. She reports that about 2 hours prior to arrival while she was walking she felt that her legs were shaky She then felt weak and became anxious causing her to feel short of breath. She continues to feel short of breath Denies any fevers, chills Denies any coughing She feels that her leg swelling has improved since her discharge Denies any pain anywhere at this time. No other complaints or concerns Apparently EMS of the patient to have an oxygen saturation of 90% which improved to 96% on 2 L via nasal cannula Related Data Home Medications Medication Instructions Recorded Confirmed lorazepam 0.5 mg tablet 0.5 mg PO DAILY PRN anxiety 02/12/20 08/04/22 cetirizine 10 mg tablet 10 mg PO DAILY PRN Allergic 12/03/20 08/04/22 Symptoms fluticasone fur. 200 mcg-umeclid 1 inh inhalation DAILY 06/30/22 08/04/22 62.5 mcg-vilant 25 mcg inhalat.powder (Trelegy Ellipta) levothyroxine 150 mcg tablet 1 tab PO DAILY 06/30/22 08/04/22 Previous Rx's Medication Instructions Recorded blood-glucose meter (FreeStyle #1 ea 09/30/20 Lite Meter kit) lancets 28 gauge (FreeStyle #100 ea 12/05/20 Lancets) blood sugar diagnostic (FreeStyle #100 ea 12/08/20 Lite Strips) cane #1 ea 12/08/20 levalbuterol tartrate 45 2 inh inhalation Q6H PRN shortness 12/28/20 mcg/actuation aerosol inhaler of breath or wheezing #15 grams (Xopenex HFA) ergocalciferol (vitamin D2) 1,250 1,250 mcg PO MO #12 caps 01/22/21 mcg (50,000 unit) capsule metoprolol tartrate 50 mg tablet 50 mg PO BID #180 caps 01/02/22 albuterol sulfate 1.25 mg/3 mL 1.25 mg (3 mL) inhalation QID PRN 07/04/22 solution for nebulization shortness of breath or wheezing #90 mL nebulizers (AeroEclipse II #1 ea 07/04/22 Nebulizer) apixaban 5 mg tablet (Eliquis) 5 mg PO BID #60 tabs 07/21/22 cefuroxime axetil 500 mg tablet 500 mg PO BID #14 tabs 08/07/22 clopidogrel 75 mg tablet (Plavix) 75 mg PO DAILY #30 tabs 08/07/22 digoxin 125 mcg (0.125 mg) tablet 0.125 mg PO Q2D #15 tabs 08/07/22 doxycycline hyclate 100 mg capsule 100 mg PO BID #14 caps 08/07/22 famotidine 20 mg tablet 20 mg PO DAILY #30 tabs 08/07/22 furosemide 40 mg tablet (Lasix) 40 mg PO BID #60 tabs 08/07/22 insulin glargine 100 unit/mL (3 20 unit (0.2 mL) subcut QAM #15 mL 08/07/22 mL) subcutaneous pen (Lantus Solostar U-100 Insulin) insulin lispro 100 unit/mL 0 sliding scale dose subcut 08/07/22 subcutaneous pen (Humalog KwikPen QIDACHS #15 mL (U-100) Insulin) pen needle, diabetic 32 gauge x #100 ea 08/07/22 1/ Allergies Allergy/AdvReac Type Severity Reaction Status Date / Time Penicillins Allergy Mild UNKNOWN Verified 07/21/22 13:38 buprenorphine [Suboxone] Allergy Unknown unknown Verified 07/21/22 13:38 naloxone [Suboxone] Allergy Unknown unknown Verified 07/21/22 13:38 Review of Systems Constitutional: Constitutional: Reports as per HPI, Denies chills, Denies fatigue, Denies fever(s), Denies headache(s) and Reports weakness ENT: Denies headache(s) Cardiovascular: Cardiovascular: Denies chest pain, Denies chest pain at rest, Reports leg edema, Reports dyspnea and Reports dyspnea on exertion Respiratory: Respiratory: Denies cough, Reports dyspnea and Reports dyspnea on exertion Gastrointestinal: Gastrointestinal: Denies abdominal pain, Denies constipation and Denies vomiting Genitourinary: Genitourinary: Denies dysuria Neurologic: Denies headache(s), Denies focal weakness and Reports weakness Endocrine: Endocrine: Denies fatigue PMFSH Past Medical History Medical History (Updated 08/16/22 @ 00:19 by Jamar Chaidez) CAD (coronary artery disease) Cervical cancer screening CKD (chronic kidney disease) COPD (chronic obstructive pulmonary disease) Diabetes High cholesterol Hypothyroidism Leukocytosis Post-menopausal Screening for breast cancer Surgical History Hx of coronary artery bypass graft S/P cardiac catheterization Family History Family History Mother Diabetes CAD (coronary artery disease) Social History Social History Household Members: Spouse and Family Housing: House Do you presently have visiting nurse or other home services: Yes ([employer]) Alcohol intake: never Patient Tobacco Use Status: Former Tobacco user Quit Date: 07/04/22 Tobacco use type: Cigarette Cigarette Packs Per Day: 2 Cigarettes Per Day: 40.0 Years Smoked: 40+/- years Second Hand Smoke Exposure: No Advance Directives: No Advance Directives Information Provided: No service: No Current occupational status: disabled Physical Exam ED Vital Signs: Vital Signs - 24 hr 08/15/22 22:17 08/15/22 22:59 Temperature 98.3 F Pulse Rate 102 H 92 Respiratory Rate 30 H 18 Blood Pressure 151/70 H Pulse Oximetry 92 Oxygen Delivery Method Room Air BMI result Body Mass Index 52.1 Const General: comfortable, no acute distress, alert and awake Nutritional Appearance: well nourished Orientation/consciousness: patient oriented x3 HENMT Head: Yes normocephalic and Yes atraumatic Throat: Yes posterior oropharynx normal Eyes Eyelids: Yes eyelids normal Conjunctivae: conjunctivae normal Sclerae: sclerae normal Corneas: corneas normal Pupils: Equal, round and reactive pupils present EOM: EOMs intact bilaterally Neck Neck: Yes full ROM Resp Effort & Inspection: audible wheezes, no grunting and not labored Auscultation: not clear to auscultation bilaterally, wheezes (Coarse wheeze throughout) and diminished lung sounds Cardio Other: 2+ bilateral lower extremity pitting edema Rate: abnormal rate Rhythm: abnormal rhythm GI Inspection: No distended Palpation (GI): Soft to palpation, not firm, nontender, no guarding and not rigid Auscultation: normoactive bowel sounds Skin General skin exam: no rashes or lesions noted and elasticity normal Neuro General: patient oriented x3 Cranial nerves: Yes CN's II-XII intact bilaterally, Yes Equal, round and re active pupils present and Yes Bilaterally intact EOM present Cognition (Neuro): normal cognition Extrem Other: Moving all extremities well without any obvious deformities Course Reevaluation(s) Reevaluation #1: Received call from lab the patient's troponin was critical at 1:02 a.m., but appears to be trending downward from her NSTEMI 10 days ago when her troponin was 3600. Chest x-ray shows pulmonary vascular congestion bilateral pleural effusions, will give a dose of IV Lasix. Time: 23:50 Reevaluation #2: Discussed admitting the patient as she has congestive heart failure is likely some degree of COPD exacerbation. The patient reports feeling better after treatment and would like to be discharged. She adamantly refused admission. Her oxygen saturation is stable on room air. Will discharge the patient and she will follow-up with her outpatient providers. Time: 00:17 Medications Administered Discontinued Medications Generic Name Dose Route Start Last Admin Trade Name Anastasiia PRN Reason Stop Dose Admin Albuterol Sulfate 2.5 mg/ 0 mg 08/15/22 22:32 08/15/22 22:57 Albuterol/Ipratropium 3 ml INHALE 08/15/22 22:33 2.5 each ONCE ONE Administration Magnesium Sulfate/Dextrose 1 gm in 100 mls @ 100 mls/hr 08/15/22 22:32 08/15/22 23:05 Magnesium Sulfate/D5w IV 08/15/22 23:31 100 mls/hr ONCE ONE Administration Methylprednisolone Sodium Succinate 125 mg 08/15/22 22:32 08/15/22 23:05 Methylprednisolone Sod Succ 125 Mg/2 Ml Vial IVPUSH 08/15/22 22:33 125 mg ONCE ONE Administration Medical Decision Making Medical Decision Making [facility] Narrative: Patient had a very complicated hospital stay within the last 2 weeks. She had DKA, pneumonia, NSTEMI as well as CHF and VERN. Will check EKG, basic labs, chest x-ray. The patient is tachypneic to 30 breaths per minute with diminished breath sounds and coarse wheeze. She reports her leg swelling has improved but she still does have some leg swelling. At this time I feel acute on chronic lung disease is the most likely diagnosis. Will check a troponin and BMP as well the patient is currently afebrile. Initial treatment with DuoNeb, Solu- Medrol, magnesium. Differential Diagnosis COPD exacerbation Pneumonia CHF ACS less likely PE less likely Lab Data 08/15/22 22:50 08/15/22 22:50 Labs: Lab Results 08/15/22 08/15/22 08/15/22 Range/Units 22:50 22:50 22:50 WBC 14.6 H (4.8-10.8) X10*3/uL RBC 2.89 L (4.20-5.50) X10*6/uL Hgb 9.5 L (12.0-16.0) g/dl Hct 29.0 L (37.0-47.0) % MCV 100.3 H (80.0-98.0) fL MCH 32.9 (27.0-33.0) pg MCHC 32.8 (31.0-35.0) g/dl RDW 14.7 (11.0-16.0) % Plt Count 386 D (160-400) X10*3/uL MPV 11.8 (9.4-12.3) fL Immature Gran % (Auto) 0.8 H (0.0-0.4) % Neut % (Auto) 84.2 H (45-73) % Lymph % (Auto) 9.4 L (20-40) % Graham % (Auto) 4.2 (2-11) % Eos % (Auto) 1.0 (0-4) % Baso % (Auto) 0.4 (0-2) % Lymph # (Auto) 1.4 (1.2-4.9) X10*3/uL Graham # (Auto) 0.6 (0.1-1.2) X10*3/uL Eos # (Auto) 0.2 (0.0-0.4) X10*3/uL Baso # (Auto) 0.1 (0.0-0.2) X10*3/uL Abs Immat Gran (auto) 0.12 H (0.00-0.03) X10*3/uL Absolute Neuts (auto) 12.3 H (2.0-8.3) x10*3/uL Absolute Nucleated RBC 0.000 (0.0-0.012) X10*3/uL Nucleated RBC % (auto) 0.0 (0.0-0.2) /100WBC PT (10.0-13.1) SEC INR (0.9-1.1) APTT (26.0-36.4) SEC Sodium 142 (135-145) mmol/L Potassium 5.1 (3.3-5.1) mmol/L Chloride 102 (96-108) mmol/L Carbon Dioxide 28 (22-29) mmol/L Anion Gap 16 (12-20) BUN 49 H (9-16) mg/dL Creatinine 2.00 H (0.5-1.4) mg/dL Estim Creat Clear Calc 33.1 Estimated GFR 25 Random Glucose 320 H (60-115) mg/dL Lactic Acid (0.5-2.0) mmol/L Calcium 9.2 (8.4-10.2) mg/dL Magnesium 1.8 (1.6-2.6) mg/dL Troponin I High Sens 102.0 H* D (<3.5-17.0) ng/L B-Natriuretic Peptide (<100) pg/mL 08/15/22 08/15/22 08/15/22 Range/Units 22:50 22:50 22:50 WBC (4.8-10.8) X10*3/uL RBC (4.20-5.50) X10*6/uL Hgb (12.0-16.0) g/dl Hct (37.0-47.0) % MCV (80.0-98.0) fL MCH (27.0-33.0) pg MCHC (31.0-35.0) g/dl RDW (11.0-16.0) % Plt Count (160-400) X10*3/uL MPV (9.4-12.3) fL Immature Gran % (Auto) (0.0-0.4) % Neut % (Auto) (45-73) % Lymph % (Auto) (20-40) % Graham % (Auto) (2-11) % Eos % (Auto) (0-4) % Baso % (Auto) (0-2) % Lymph # (Auto) (1.2-4.9) X10*3/uL Graham # (Auto) (0.1-1.2) X10*3/uL Eos # (Auto) (0.0-0.4) X10*3/uL Baso # (Auto) (0.0-0.2) X10*3/uL Abs Immat Gran (auto) (0.00-0.03) X10*3/uL Absolute Neuts (auto) (2.0-8.3) x10*3/uL Absolute Nucleated RBC (0.0-0.012) X10*3/uL Nucleated RBC % (auto) (0.0-0.2) /100WBC PT 15.9 H (10.0-13.1) SEC INR 1.4 H (0.9-1.1) APTT 44.6 H (26.0-36.4) SEC Sodium (135-145) mmol/L Potassium (3.3-5.1) mmol/L Chloride (96-108) mmol/L Carbon Dioxide (22-29) mmol/L Anion Gap (12-20) BUN (9-16) mg/dL Creatinine (0.5-1.4) mg/dL Estim Creat Clear Calc Estimated GFR Random Glucose (60-115) mg/dL Lactic Acid 1.4 (0.5-2.0) mmol/L Calcium (8.4-10.2) mg/dL Magnesium (1.6-2.6) mg/dL Troponin I High Sens (<3.5-17.0) ng/L B-Natriuretic Peptide 731 H (<100) pg/mL Discharge Plan Discharge Clinical Impression: Congestive heart failure, VERN (acute kidney injury) Patient Disposition: Home, Self-Care Instructions: Fluid Restriction (ED) Additional Instructions: Your chest x-ray shows that you still have fluid in her lungs Continue taking Lasix 40 mg twice daily Follow-up with your primary doctor in use your inhalers as directed Return for new or worsening symptoms, especially chest pain or fevers Prescriptions: No Action (DME) blood-glucose meter [FreeStyle Lite Meter] Kit See Rx Instructions .ROUTE .MEDSUPPLY Qty: 1 0RF Rx Instructions: Test Daily (DME) lancets [FreeStyle Lancets] 28 gauge misc See Rx Instructions .ROUTE .MEDSUPPLY Qty: 100 0RF Rx Instructions: Daily (DME) FreeStyle Lite Strips Strip See Rx Instructions .Route Qty: 100 0RF Rx Instructions: test twice a day (DME) cane Device See Rx Instructions .Route Qty: 1 0RF Rx Instructions: As directed levalbuterol tartrate [Xopenex HFA] 45 mcg/actuation HFA aerosol inhaler 2 inh inhalation Q6H PRN (Reason: shortness of breath or wheezing) Qty: 15 0RF ergocalciferol (vitamin D2) 1,250 mcg (50,000 unit) capsule 1,250 mcg PO MO Qty: 12 1RF metoprolol tartrate 50 mg tablet 50 mg PO BID Qty: 180 1RF cetirizine 10 mg Tablet 10 mg PO DAILY PRN (Reason: Allergic Symptoms) levothyroxine 150 mcg tablet 1 tab PO DAILY Trelegy Ellipta 200-62.5-25 mcg blister with device 1 inh inhalation DAILY furosemide [Lasix] 40 mg tablet 40 mg PO BID Qty: 60 0RF clopidogrel [Plavix] 75 mg tablet 75 mg PO DAILY Qty: 30 0RF digoxin 125 mcg (0.125 mg) Tablet 0.125 mg PO Q2D Qty: 15 0RF cefuroxime axetil 500 mg tablet 500 mg PO BID Qty: 14 0RF doxycycline hyclate 100 mg capsule 100 mg PO BID Qty: 14 0RF insulin glargine [Lantus Solostar U-100 Insulin] 100 unit/mL (3 mL) insulin pen 20 unit subcut QAM Qty: 15 0RF insulin lispro [Humalog KwikPen Insulin] 100 unit/mL insulin pen 0 sliding scale dose SUBCUT QIDACHS Qty: 15 0RF Rx Instructions: Blood Sugar: <150 - 0 units 151-200 - 2 units 201-250 - 4 units 251-300 - 6 units 301-350 - 8 units >350 - 10 units (DME) pen needle, diabetic 32 gauge x 1/4 needle Qty: 100 0RF Rx Instructions: Use four times a day or as directed. famotidine 20 mg tablet 20 mg PO DAILY Qty: 30 0RF lorazepam 0.5 mg tablet 0.5 mg PO DAILY PRN (Reason: anxiety) Eliquis 5 mg tablet 5 mg PO BID Qty: 60 3RF (DME) nebulizers [AeroEclipse II Nebulizer] Misc See Rx Instructions .Route Qty: 1 0RF Rx Instructions: As directed albuterol sulfate 1.25 mg/3 mL solution for nebulization 1.25 mg inhalation QID PRN (Reason: shortness of breath or wheezing) Qty: 90 3RF
[2022-08-15 22:57] LABS: Basophils Absolute Auto 0.1 X10*3/uL (0.0-0.2); Basophils Percent Auto 0.4 % (0-2); Eosinophils Absolute Auto 0.2 X10*3/uL (0.0-0.4); Hemoglobin 9.5 g/dl (12.0-16.0); Imm Gran Abs Auto 0.12 X10*3/uL (0.00-0.03); Imm Gran Pct Auto 0.8 % (0.0-0.4); Lymphocytes Absolute Auto 1.4 X10*3/uL (1.2-4.9); Lymphocytes Percent Auto 9.4 % (20-40); MANUAL DIFF FLAG NO; Mean Corpuscular HGB Conc 32.8 g/dl (31.0-35.0); Mean Corpuscular Hemoglobin 32.9 pg (27.0-33.0); Mean Corpuscular Volume 100.3 fL (80.0-98.0); Mean Platelet Volume 11.8 fL (9.4-12.3); Monocytes Absolute Auto 0.6 X10*3/uL (0.1-1.2); Monocytes Percent Auto 4.2 % (2-11); Neutrophils Absolute Auto 12.3 x10*3/uL (2.0-8.3); Neutrophils Percent Auto 84.2 % (45-73); Platelet Count 386 X10*3/uL (160-400); Red Blood Count 2.89 X10*6/uL (4.20-5.50); Red Cell Distribution Width 14.7 % (11.0-16.0); White Blood Count 14.6 X10*3/uL (4.8-10.8)
[2022-08-15 22:59] VITALS: PULSE 92; RESP 18; O2SAT 91
[2022-08-15 23:05] LABS: INTERNATIONAL NORM RATIO 1.4 (0.9-1.1); Prothrombin Time 15.9 SEC (10.0-13.1)
[2022-08-15] MEDS: Magnesium Sulfate/D5W 1 GM/100 ML PIGGYBACK IV (23:05)
[2022-08-15] MEDS: methylPREDNISolone Sod Succ 125 MG/2 ML VIAL IVPUSH (23:05)
[2022-08-15 23:08] LABS: Partial Thromboplastin Time 44.6 SEC (26.0-36.4)
--- NOTE | 2022-08-15 23:11 | PC.NURSE ---
22 G IV line established in L AC. Labs drawn per MD orders and sent to lab. Patient placed on director of cardiac rehabilitation, HR 102, atrial flutter. EKG obtained and reviewed by provider. Respiratory therapist administered nebulizer treatment. PatientO2 Sat 92-98% RA. Patient medicate per MAR with Solumedrol and Mg IV. Patient is alert and oriented x3, she is able to make her needs known, call fernandez placed within patient's reach.
[2022-08-15 23:18] LABS: B Type Natriuretic Peptide 731 pg/mL (<100)
[2022-08-15 23:27] LABS: Lactic Acid 1.4 mmol/L (0.5-2.0)
[2022-08-15 23:39] LABS: Anion Gap 16 (12-20); Blood Urea Nitrogen 49 mg/dL (9-16); Calcium 9.2 mg/dL (8.4-10.2); Carbon Dioxide 28 mmol/L (22-29); Chloride 102 mmol/L (96-108); Creatinine Clr Calc Pharmacy 33.1; Estimated Glomerular Filt Rate 25; Glucose Random 320 mg/dL (60-115); Magnesium 1.8 mg/dL (1.6-2.6); Potassium 5.1 mmol/L (3.3-5.1); Sodium 142 mmol/L (135-145)
[2022-08-16] MEDS: Furosemide 100 MG/10 ML VIAL 80 MG IVPUSH (00:17)
[2022-08-16 00:27] VITALS: BP 132/72; PULSE 96; RESP 17; O2SAT 96
[2022-08-16 00:29] VITALS: BP 139/86; PULSE 93; RESP 20; TEMP 36.8; O2SAT 97
== END 2022-08-16 01:00 | disposition home or self-care (01) ==
PROVIDERS: Physician Assistant; Emergency Provider Internal Medicine
DX: E11.22 Type 2 diabetes mellitus with diabetic chronic kidney disease (principal); I13.0 Hypertensive heart and chronic kidney disease with heart failure and stage 1 through stage 4 chronic kidney disease, or unspecified chronic kidney disease; N18.9 Chronic kidney disease, unspecified; I50.9 Heart failure, unspecified; N17.9 Acute kidney failure, unspecified; R06.02 Shortness of breath; I48.91 Unspecified atrial fibrillation; E78.5 Hyperlipidemia, unspecified; Z87.891 Personal history of nicotine dependence; Z79.4 Long term (current) use of insulin; Z79.01 Long term (current) use of anticoagulants; Z79.899 Other long term (current) drug therapy
CPT/HCPCS: 36415; 71045; 80048; 83605; 83735; 83880; 84484; 85025; 85610; 85730; 93005; 94640; 96365; 96375; 99285; J1940; J2930; J3475

== ENCOUNTER → 2022-08-16 13:29 | Outpatient (REF) | payer MEDICARE, MEDICAID, SELFPAY | LOC: HO.SL 13:29 | PROVIDERS: Visit Provider Nurse Practitioner Family | DX: Z13.89 Encounter for screening for other disorder (principal) ==

== ENCOUNTER 2022-08-22 01:22 | Emergency (ER) | payer MEDICARE, MEDICAID, SELFPAY ==
[2022-08-22 01:24] VITALS: BP 121/73; PULSE 112; RESP 22; TEMP 36.4; O2SAT 94; BMI 42.3
[2022-08-22 02:07] LABS: MANUAL DIFF FLAG NO
[2022-08-22 02:08] LABS: Basophils Absolute Auto 0.1 X10*3/uL (0.0-0.2); Basophils Percent Auto 0.5 % (0-2); Eosinophils Absolute Auto 0.2 X10*3/uL (0.0-0.4); Eosinophils Percent Auto 1.8 % (0-4); Hematocrit 27.1 % (37.0-47.0); Hemoglobin 8.9 g/dl (12.0-16.0); Imm Gran Abs Auto 0.22 X10*3/uL (0.00-0.03); Imm Gran Pct Auto 1.7 % (0.0-0.4); Lymphocytes Absolute Auto 1.9 X10*3/uL (1.2-4.9); Lymphocytes Percent Auto 14.2 % (20-40); Mean Corpuscular HGB Conc 32.8 g/dl (31.0-35.0); Mean Corpuscular Hemoglobin 33.7 pg (27.0-33.0); Mean Corpuscular Volume 102.7 fL (80.0-98.0); Mean Platelet Volume 11.7 fL (9.4-12.3); Monocytes Absolute Auto 0.6 X10*3/uL (0.1-1.2); Monocytes Percent Auto 4.7 % (2-11); Neutrophils Absolute Auto 10.1 x10*3/uL (2.0-8.3); Neutrophils Percent Auto 77.1 % (45-73); Platelet Count 318 X10*3/uL (160-400); Red Blood Count 2.64 X10*6/uL (4.20-5.50); Red Cell Distribution Width 15.9 % (11.0-16.0); White Blood Count 13.1 X10*3/uL (4.8-10.8)
[2022-08-22 02:35] LABS: Alanine Aminotransferase 41 U/L (0-31); Albumin Level 3.6 g/dL (3.5-5.0); Alkaline Phosphatase 180 U/L (39-117); Anion Gap 14 (12-20); Aspartate Amino Transferase 18 U/L (5-31); Bilirubin Direct 0.2 mg/dL (0.0-0.5); Bilirubin Total 0.4 mg/dL (0.0-1.0); Blood Urea Nitrogen 49 mg/dL (9-16); Calcium 8.6 mg/dL (8.4-10.2); Carbon Dioxide 22 mmol/L (22-29); Chloride 104 mmol/L (96-108); Creatinine Clr Calc Pharmacy 30.3; Estimated Glomerular Filt Rate 26; Glucose Random 268 mg/dL (60-115); Lipase 117 U/L (8-78); Potassium 6.2 mmol/L (3.3-5.1); Sodium 134 mmol/L (135-145); Total Protein 5.7 g/dL (6.5-8.0)
--- NOTE | 2022-08-22 02:57 | ECG_ITS ---
Test Reason : sob Blood Pressure : / mmHG Vent. Rate : 090 BPM Atrial Rate : 278 BPM P-R Int : 000 ms QRS Dur : 084 ms QT Int : 346 ms P-R-T Axes : 000 071 194 degrees QTc Int : 423 ms Atrial flutter with variable A-V block Septal infarct (cited on or before 30-DEC-2017) ST & T wave abnormality, consider inferolateral ischemia Abnormal ECG When compared with ECG of 15-AUG-2022 22:47, Non-specific change in ST segment in Inferior leads ST no longer depressed in Lateral leads Referred By: Nuria Milton Electronically Signed By:Sebastián Azul
--- NOTE | 2022-08-22 02:59 | ED.GENADULT ---
HPI - General Adult General Chief complaint: General Medical Stated complaint: side pain, shakes Time Seen by Provider: 08/22/22 02:37 Source: patient Mode of arrival: wheelchair Limitations: no limitations History of Present Illness HPI narrative: Patient comes to the emergency room complaining of chronic right-sided body pain. Patient does have history of CVA and has chronic right-sided upper and lower extremity deficits. It has been going on for several years since patient 1st started experiencing pain on the right side of the body. Intermittent, exacerbated at night and is unable to sleep. Patient denies chest pain, patient states she has chronic shortness of breath at baseline, has history of CHF and COPD. Patient states that the shortness of breath has not worsened since she left the hospital. Patient denies chest pain. Related Data Home Medications Medication Instructions Recorded Confirmed lorazepam 0.5 mg tablet 0.5 mg PO DAILY PRN anxiety 02/12/20 08/04/22 cetirizine 10 mg tablet 10 mg PO DAILY PRN Allergic 12/03/20 08/04/22 Symptoms fluticasone fur. 200 mcg-umeclid 1 inh inhalation DAILY 06/30/22 08/04/22 62.5 mcg-vilant 25 mcg inhalat.powder (Trelegy Ellipta) levothyroxine 150 mcg tablet 1 tab PO DAILY 06/30/22 08/04/22 Previous Rx's Medication Instructions Recorded blood-glucose meter (FreeStyle #1 ea 09/30/20 Lite Meter kit) lancets 28 gauge (FreeStyle #100 ea 12/05/20 Lancets) blood sugar diagnostic (FreeStyle #100 ea 12/08/20 Lite Strips) cane #1 ea 12/08/20 levalbuterol tartrate 45 2 inh inhalation Q6H PRN shortness 12/28/20 mcg/actuation aerosol inhaler of breath or wheezing #15 grams (Xopenex HFA) ergocalciferol (vitamin D2) 1,250 1,250 mcg PO MO #12 caps 01/22/21 mcg (50,000 unit) capsule metoprolol tartrate 50 mg tablet 50 mg PO BID #180 caps 01/02/22 albuterol sulfate 1.25 mg/3 mL 1.25 mg (3 mL) inhalation QID PRN 07/04/22 solution for nebulization shortness of breath or wheezing #90 mL nebulizers (AeroEclipse II #1 ea 07/04/22 Nebulizer) apixaban 5 mg tablet (Eliquis) 5 mg PO BID #60 tabs 07/21/22 cefuroxime axetil 500 mg tablet 500 mg PO BID #14 tabs 08/07/22 clopidogrel 75 mg tablet (Plavix) 75 mg PO DAILY #30 tabs 08/07/22 digoxin 125 mcg (0.125 mg) tablet 0.125 mg PO Q2D #15 tabs 08/07/22 doxycycline hyclate 100 mg capsule 100 mg PO BID #14 caps 08/07/22 famotidine 20 mg tablet 20 mg PO DAILY #30 tabs 08/07/22 furosemide 40 mg tablet (Lasix) 40 mg PO BID #60 tabs 08/07/22 insulin glargine 100 unit/mL (3 20 unit (0.2 mL) subcut QAM #15 mL 08/07/22 mL) subcutaneous pen (Lantus Solostar U-100 Insulin) insulin lispro 100 unit/mL 0 sliding scale dose subcut 08/07/22 subcutaneous pen (Humalog KwikPen QIDACHS #15 mL (U-100) Insulin) pen needle, diabetic 32 gauge x #100 ea 08/07/22 1/ Allergies Allergy/AdvReac Type Severity Reaction Status Date / Time Penicillins Allergy Mild UNKNOWN Verified 08/22/22 01:31 buprenorphine [Suboxone] Allergy Unknown unknown Verified 08/22/22 01:31 naloxone [Suboxone] Allergy Unknown unknown Verified 08/22/22 01:31 Review of Systems Review of Systems: Constitutional : No Weight loss, No Fever, No Chills, No Night Sweats, complaining of chronic fatigue and generalized malaise, complaining of chronic right-sided body ache, intermittent, worse at night. ENT/Mouth : No Hearing loss, No Ear Pain, No Nasal Congestion, No Sinus Pain, No Hoarseness, No sore throat, No Rhinorrhea, No Swallowing Difficulty Eyes: No Eye Pain, No Swelling, No Redness, No Foreign Body, No Discharge, No Vision Changes Cardiovascular : No Chest Pain, No SOB, No Dyspnea on Exertion, No Orthopnea, No Edema, No Palpitations Respiratory : No Cough, No Sputum, No Wheezing, No Smoke Exposure, No Dyspnea Gastrointestinal : No Nausea, No Vomiting, No Diarrhea, No Constipation, No abdominal Pain, No Hematochezia, No Melena Genitourinary : no irregular bleeding, No Dysuria, No Urinary Frequency, No Hematuria, No Urinary Incontinence, No Urgency, No Flank Pain, No Urinary Flow Changes, No Hesitancy Musculoskeletal : Complaining of chronic right-sided body pain No Myalgias, No Joint Swelling Skin : No Skin Lesions, No rash Neuro : No Weakness, No Numbness, No Paresthesias, No Loss of Consciousness, No Dizziness, No Headache Psych : No Anxiety/Panic, No Depression, No SI/HI/AH/VH, No Social Issues, Heme/Lymph: No Bruising, No Bleeding,No Lymphadenopathy Endocrine : No Polyuria, No Polydipsia, No Temperature Intolerance PMFSH Past Medical History Medical History CAD (coronary artery disease) Cervical cancer screening CKD (chronic kidney disease) COPD (chronic obstructive pulmonary disease) Diabetes High cholesterol Hypothyroidism Leukocytosis Post-menopausal Screening for breast cancer Surgical History Hx of coronary artery bypass graft S/P cardiac catheterization Family History Family History Mother Diabetes CAD (coronary artery disease) Social History Social History Household Members: Spouse and Family Housing: House Do you presently have visiting nurse or other home services: Yes ([employer]) Alcohol intake: never Patient Tobacco Use Status: Former Tobacco user Quit Date: 07/04/22 Tobacco use type: Cigarette Cigarette Packs Per Day: 2 Cigarettes Per Day: 40.0 Years Smoked: 40+/- years Smoked in Last 30 Days: Yes Second Hand Smoke Exposure: No Use of substances other than those prescribed or required for medical reasons: No Advance Directives: No Advance Directives Information Provided: Yes service: No Current occupational status: disabled Physical Exam ED Vital Signs: Vital Signs - 24 hr 08/22/22 01:24 08/22/22 03:13 08/22/22 04:44 Temperature 97.6 F 98.1 F Pulse Rate 112 H 105 H 128 H Respiratory Rate 22 H 20 14 Blood Pressure 121/73 132/71 Pulse Oximetry 94 93 Oxygen Delivery Method Room Air Room Air 08/22/22 07:33 Temperature Pulse Rate 129 H Respiratory Rate 22 H Blood Pressure Pulse Oximetry Oxygen Delivery Method BMI result Body Mass Index 42.3 Const Other: Appearance: Alert. Oriented X3. No acute distress. Eyes: Pupils equal, round and reactive to light. ENT: Pharynx normal. Neck: Normal inspection. Neck supple. No lymph nodes noted. No crepitus CVS: Normal heart rate and rhythm. Pulses normal. Normal S1 and S2 Respiratory: No respiratory distress. Breath sounds normal. No Wheezing. No rales Abdomen: Soft and nontender. No rigidity. No distention. Skin: Skin warm and dry. Normal skin color. Normal skin turgor. Extremities: No lower extremity edema. No Lacerations. No Rash Neuro: Oriented X 3. No motor deficit. No sensory deficit. Moving all extremities. No slurred speech. CN 2 through 12 grossly intact Psych: calm, cooperative, normal affect Course Course Course Narrative: -on arrival, labs were obtained, it was noted that patient has a potassium of 6.2. -EKG pending. Patient received treatment for hyperkalemia. Patient was admitted at the beginning of the month and noted to have hyperkalemia as well. Patient does have history of chronic kidney disease. Today creatinine is at baseline. -patient receiving IV calcium gluconate, D50, 10 units of insulin, albuterol neb Medications Administered Discontinued Medications Generic Name Dose Route Start Last Admin Trade Name Freq PRN Reason Stop Dose Admin Albuterol Sulfate 10 mg 08/22/22 02:55 08/22/22 03:10 Albuterol Sulfate (0.083%) 2.5 Mg/3 Ml Vial.Neb INHALE 08/22/22 02:56 10 mg ONCE ONE Administration Albuterol Sulfate 10 mg 08/22/22 06:51 08/22/22 07:30 Albuterol Sulfate (0.083%) 2.5 Mg/3 Ml Vial.Neb INHALE 08/22/22 06:52 10 mg ONCE ONE Administration Calcium Gluconate 2 gm in 100 mls @ 50 mls/hr 08/22/22 02:53 08/22/22 05:13 Calcium Gluconate IV 08/22/22 04:52 Infused ONCE ONE Infusion Insulin Human Regular 10 unit 08/22/22 02:54 08/22/22 03:07 Insulin Regular, Human 100 Unit/Ml 3 Ml Vial IVPUSH 08/22/22 02:55 10 unit ONCE ONE Administration Medical Decision Making Medical Decision Making [facility] Narrative: -when we got this 1st set of labs, patient had hyperkalemia, patient has previously been admitted, admission was considered initially. -patient's labs are baseline, patient's troponin elevated but much better than previous admission, earlier this month, patient had an NSTEMI. Today, patient has no chest pain. -the most significant lab abnormality today was the potassium. It was 6 point 2. Patient was given calcium gluconate, D50, insulin, albuterol, Lokelma. Potassium improved to 5.4. Patient receiving another round of albuterol, potassium level to be repeated at 08:30. If potassium normalizes, patient likely to be discharged. Patient has pain on the right side of her body, chronic. -creatinine levels at baseline. -sign out given to Dr. Harrell Differential Diagnosis Differential Diagnoses: The differential diagnosis associated with the presentation includes (Hyperkalemia, chronic kidney disease) Admission/Observation Consideration of admission/observation: Escalation of care including admission/observation considered Lab Data [facility] Lab Attestation statement: I reviewed the patient's lab results. 08/22/22 02:03 08/22/22 02:03 Labs: Lab Results 08/22/22 08/22/22 08/22/22 Range/Units 02:03 02:03 02:03 WBC 13.1 H (4.8-10.8) X10*3/uL RBC 2.64 L (4.20-5.50) X10*6/uL Hgb 8.9 L (12.0-16.0) g/dl Hct 27.1 L (37.0-47.0) % MCV 102.7 H (80.0-98.0) fL MCH 33.7 H (27.0-33.0) pg MCHC 32.8 (31.0-35.0) g/dl RDW 15.9 (11.0-16.0) % Plt Count 318 (160-400) X10*3/uL MPV 11.7 (9.4-12.3) fL Immature Gran % (Auto) 1.7 H (0.0-0.4) % Neut % (Auto) 77.1 H (45-73) % Lymph % (Auto) 14.2 L (20-40) % [place] % (Auto) 4.7 (2-11) % Eos % (Auto) 1.8 (0-4) % Baso % (Auto) 0.5 (0-2) % Lymph # (Auto) 1.9 (1.2-4.9) X10*3/uL [place] # (Auto) 0.6 (0.1-1.2) X10*3/uL Eos # (Auto) 0.2 (0.0-0.4) X10*3/uL Baso # (Auto) 0.1 (0.0-0.2) X10*3/uL Abs Immat Gran (auto) 0.22 H (0.00-0.03) X10*3/uL Absolute Neuts (auto) 10.1 H (2.0-8.3) x10*3/uL Absolute Nucleated RBC 0.000 (0.0-0.012) X10*3/uL Nucleated RBC % (auto) 0.0 (0.0-0.2) /100WBC VBG pH (7.32-7.43) VBG pCO2 mmHg VBG pO2 mmHg VBG HCO3 (22-26) mmol/L VBG O2 Saturation % VBG Base Excess mmol/L Sodium 134 L (135-145) mmol/L Potassium 6.2 H* D (3.3-5.1) mmol/L Chloride 104 (96-108) mmol/L Carbon Dioxide 22 (22-29) mmol/L Anion Gap 14 (12-20) BUN 49 H (9-16) mg/dL Creatinine 1.92 H (0.5-1.4) mg/dL Estim Creat Clear Calc 30.3 Estimated GFR 26 POC Glucose (60-115) mg/dL Random Glucose 268 H (60-115) mg/dL Calcium 8.6 D (8.4-10.2) mg/dL Total Bilirubin 0.4 (0.0-1.0) mg/dL Direct Bilirubin 0.2 (0.0-0.5) mg/dL AST 18 (5-31) U/L ALT 41 H (0-31) U/L Alkaline Phosphatase 180 H (39-117) U/L Troponin I High Sens (<3.5-17.0) ng/L B-Natriuretic Peptide 392 H (<100) pg/mL Total Protein 5.7 L (6.5-8.0) g/dL Albumin 3.6 (3.5-5.0) g/dL Lipase 117 H (8-78) U/L Urine Color Urine Appearance Urine pH (5.0-9.0) Ur Specific [place] (1.005-1.025) Urine Protein (Neg-Trace) mg/dL Urine Glucose (UA) (Negative) mg/dL Urine Ketones (Negative) mg/dL Urine Blood (Negative) Urine Nitrite (Negative) Ur Leukocyte Esterase (Negative) Urine RBC (0-2) /HPF Urine WBC (0-5) /HPF Ur Squamous Epith Cells (0-2) /HPF Urine Bacteria (None Seen) Hyaline Casts (0-2) /LPF 08/22/22 08/22/22 08/22/22 Range/Units 03:04 03:32 03:32 WBC (4.8-10.8) X10*3/uL RBC (4.20-5.50) X10*6/uL Hgb (12.0-16.0) g/dl Hct (37.0-47.0) % MCV (80.0-98.0) fL MCH (27.0-33.0) pg MCHC (31.0-35.0) g/dl RDW (11.0-16.0) % Plt Count (160-400) X10*3/uL MPV (9.4-12.3) fL Immature Gran % (Auto) (0.0-0.4) % Neut % (Auto) (45-73) % Lymph % (Auto) (20-40) % [place] % (Auto) (2-11) % Eos % (Auto) (0-4) % Baso % (Auto) (0-2) % Lymph # (Auto) (1.2-4.9) X10*3/uL [place] # (Auto) (0.1-1.2) X10*3/uL Eos # (Auto) (0.0-0.4) X10*3/uL Baso # (Auto) (0.0-0.2) X10*3/uL Abs Immat Gran (auto) (0.00-0.03) X10*3/uL Absolute Neuts (auto) (2.0-8.3) x10*3/uL Absolute Nucleated RBC (0.0-0.012) X10*3/uL Nucleated RBC % (auto) (0.0-0.2) /100WBC VBG pH 7.35 (7.32-7.43) VBG pCO2 43 mmHg VBG pO2 48 mmHg VBG HCO3 24 (22-26) mmol/L VBG O2 Saturation 74.0 % VBG Base Excess -1.1 mmol/L Sodium (135-145) mmol/L Potassium (3.3-5.1) mmol/L Chloride (96-108) mmol/L Carbon Dioxide (22-29) mmol/L Anion Gap (12-20) BUN (9-16) mg/dL Creatinine (0.5-1.4) mg/dL Estim Creat Clear Calc Estimated GFR POC Glucose 248 H (60-115) mg/dL Random Glucose (60-115) mg/dL Calcium (8.4-10.2) mg/dL Total Bilirubin (0.0-1.0) mg/dL Direct Bilirubin (0.0-0.5) mg/dL AST (5-31) U/L ALT (0-31) U/L Alkaline Phosphatase (39-117) U/L Troponin I High Sens 49.2 H D (<3.5-17.0) ng/L B-Natriuretic Peptide (<100) pg/mL Total Protein (6.5-8.0) g/dL Albumin (3.5-5.0) g/dL Lipase (8-78) U/L Urine Color Urine Appearance Urine pH (5.0-9.0) Ur Specific [place] (1.005-1.025) Urine Protein (Neg-Trace) mg/dL Urine Glucose (UA) (Negative) mg/dL Urine Ketones (Negative) mg/dL Urine Blood (Negative) Urine Nitrite (Negative) Ur Leukocyte Esterase (Negative) Urine RBC (0-2) /HPF Urine WBC (0-5) /HPF Ur Squamous Epith Cells (0-2) /HPF Urine Bacteria (None Seen) Hyaline Casts (0-2) /LPF 08/22/22 08/22/22 08/22/22 Range/Units 04:09 05:17 05:27 WBC (4.8-10.8) X10*3/uL RBC (4.20-5.50) X10*6/uL Hgb (12.0-16.0) g/dl Hct (37.0-47.0) % MCV (80.0-98.0) fL MCH (27.0-33.0) pg MCHC (31.0-35.0) g/dl RDW (11.0-16.0) % Plt Count (160-400) X10*3/uL MPV (9.4-12.3) fL Immature Gran % (Auto) (0.0-0.4) % Neut % (Auto) (45-73) % Lymph % (Auto) (20-40) % [place] % (Auto) (2-11) % Eos % (Auto) (0-4) % Baso % (Auto) (0-2) % Lymph # (Auto) (1.2-4.9) X10*3/uL [place] # (Auto) (0.1-1.2) X10*3/uL Eos # (Auto) (0.0-0.4) X10*3/uL Baso # (Auto) (0.0-0.2) X10*3/uL Abs Immat Gran (auto) (0.00-0.03) X10*3/uL Absolute Neuts (auto) (2.0-8.3) x10*3/uL Absolute Nucleated RBC (0.0-0.012) X10*3/uL Nucleated RBC % (auto) (0.0-0.2) /100WBC VBG pH (7.32-7.43) VBG pCO2 mmHg VBG pO2 mmHg VBG HCO3 (22-26) mmol/L VBG O2 Saturation % VBG Base Excess mmol/L Sodium 136 (135-145) mmol/L Potassium 5.4 H (3.3-5.1) mmol/L Chloride 105 (96-108) mmol/L Carbon Dioxide 23 (22-29) mmol/L Anion Gap 13 (12-20) BUN 46 H (9-16) mg/dL Creatinine 1.80 H (0.5-1.4) mg/dL Estim Creat Clear Calc 32.3 Estimated GFR 28 POC Glucose 175 H (60-115) mg/dL Random Glucose 131 H (60-115) mg/dL Calcium 9.2 D (8.4-10.2) mg/dL Total Bilirubin (0.0-1.0) mg/dL Direct Bilirubin (0.0-0.5) mg/dL AST (5-31) U/L ALT (0-31) U/L Alkaline Phosphatase (39-117) U/L Troponin I High Sens (<3.5-17.0) ng/L B-Natriuretic Peptide (<100) pg/mL Total Protein (6.5-8.0) g/dL Albumin (3.5-5.0) g/dL Lipase (8-78) U/L Urine Color Yellow Urine Appearance Clear Urine pH 5.0 (5.0-9.0) Ur Specific [place] 1.020 (1.005-1.025) Urine Protein 100 (2+) H (Neg-Trace) mg/dL Urine Glucose (UA) Negative (Negative) mg/dL Urine Ketones Negative (Negative) mg/dL Urine Blood Negative (Negative) Urine Nitrite Negative (Negative) Ur Leukocyte Esterase Negative (Negative) Urine RBC 0-2 (0-2) /HPF Urine WBC 0-5 (0-5) /HPF Ur Squamous Epith Cells 0-2 (0-2) /HPF Urine Bacteria None Seen (None Seen) Hyaline Casts 3-5 (0-2) /LPF Independent Interpretation I performed an independent interpretation of an: EKG (Interpretation of EKG: Atrial flutter, heart rate 90, no assisting the patient with elevation, no T-wave inversion, QTC 423) Critical Care Time Critical Care Time Critical Care Time: Yes Total Critical Care Time: 60 Attestation: I have personally provided critical care time. Time includes review of lab data, radiology results, discussion with consultants, and monitoring for potential decompensation. Intervention performed as documented. Discharge Plan Discharge Clinical Impression: Acute hyperkalemia, Chronic pain Patient Disposition: Still a Patient Instructions: Hyperkalemia (ED), Chronic Pain (ED) Additional Instructions: Please follow-up with your primary care physician tomorrow. If you have any worsening or new symptoms, please return to the emergency room or call 911 Prescriptions: No Action (DME) blood-glucose meter [FreeStyle Lite Meter] Kit See Rx Instructions .ROUTE .MEDSUPPLY Qty: 1 0RF Rx Instructions: Test Daily (DME) lancets [FreeStyle Lancets] 28 gauge misc See Rx Instructions .ROUTE .MEDSUPPLY Qty: 100 0RF Rx Instructions: Daily (DME) FreeStyle Lite Strips Strip See Rx Instructions .Route Qty: 100 0RF Rx Instructions: test twice a day (DME) cane Device See Rx Instructions .Route Qty: 1 0RF Rx Instructions: As directed levalbuterol tartrate [Xopenex HFA] 45 mcg/actuation HFA aerosol inhaler 2 inh inhalation Q6H PRN (Reason: shortness of breath or wheezing) Qty: 15 0RF ergocalciferol (vitamin D2) 1,250 mcg (50,000 unit) capsule 1,250 mcg PO MO Qty: 12 1RF metoprolol tartrate 50 mg tablet 50 mg PO BID Qty: 180 1RF cetirizine 10 mg Tablet 10 mg PO DAILY PRN (Reason: Allergic Symptoms) levothyroxine 150 mcg tablet 1 tab PO DAILY Trelegy Ellipta 200-62.5-25 mcg blister with device 1 inh inhalation DAILY furosemide [Lasix] 40 mg tablet 40 mg PO BID Qty: 60 0RF clopidogrel [Plavix] 75 mg tablet 75 mg PO DAILY Qty: 30 0RF digoxin 125 mcg (0.125 mg) Tablet 0.125 mg PO Q2D Qty: 15 0RF cefuroxime axetil 500 mg tablet 500 mg PO BID Qty: 14 0RF doxycycline hyclate 100 mg capsule 100 mg PO BID Qty: 14 0RF insulin glargine [Lantus Solostar U-100 Insulin] 100 unit/mL (3 mL) insulin pen 20 unit subcut QAM Qty: 15 0RF insulin lispro [Humalog KwikPen Insulin] 100 unit/mL insulin pen 0 sliding scale dose SUBCUT QIDACHS Qty: 15 0RF Rx Instructions: Blood Sugar: <150 - 0 units 151-200 - 2 units 201-250 - 4 units 251-300 - 6 units 301-350 - 8 units >350 - 10 units (DME) pen needle, diabetic 32 gauge x 1/4 needle Qty: 100 0RF Rx Instructions: Use four times a day or as directed. famotidine 20 mg tablet 20 mg PO DAILY Qty: 30 0RF lorazepam 0.5 mg tablet 0.5 mg PO DAILY PRN (Reason: anxiety) Eliquis 5 mg tablet 5 mg PO BID Qty: 60 3RF (DME) nebulizers [AeroEclipse II Nebulizer] Misc See Rx Instructions .Route Qty: 1 0RF Rx Instructions: As directed albuterol sulfate 1.25 mg/3 mL solution for nebulization 1.25 mg inhalation QID PRN (Reason: shortness of breath or wheezing) Qty: 90 3RF
[2022-08-22] MEDS: Insulin Regular, Human 100 UNIT/ML 3 ML VIAL 10 UNIT IVPUSH (03:07)
[2022-08-22] MEDS: Albuterol Sulfate (0.083%) 2.5 MG/3 ML VIAL.NEB 10 MG INHALE ×2 (03:10→07:30)
[2022-08-22] MEDS: Calcium Gluconate/NaCl,Iso-Osm 2 GM/100 ML PLAST..BAG IV (03:12)
[2022-08-22 03:13] VITALS: PULSE 105; RESP 20; O2SAT 92
[2022-08-22 03:13] LABS: Glucose, Whole Blood 248 mg/dL (60-115)
[2022-08-22 03:37] LABS: B Type Natriuretic Peptide 392 pg/mL (<100)
[2022-08-22 03:38] LABS: Venous Blood Gas Refer to POC result
[2022-08-22 03:40] LABS: VBG Base Excess -1.1 mmol/L; VBG HCO3 24 mmol/L (22-26); VBG pCO2 43 mmHg; VBG pH 7.35 (7.32-7.43); VBG pO2 48 mmHg
[2022-08-22 03:56] LABS: Troponin-I High Sensitivity 49.2 ng/L (<3.5-17.0)
--- NOTE | 2022-08-22 04:00 | PC.NURSE ---
Pt A&Ox3, reports 8/10 constant right sided body pain. IV line placed. Pt straight cath for urine sample, tolerated well. Meds given as documented.
[2022-08-22 04:14] LABS: Glucose, Whole Blood 175 mg/dL (60-115)
[2022-08-22 04:44] VITALS: BP 132/71; PULSE 128; RESP 14; TEMP 36.7; O2SAT 93
[2022-08-22 05:34] LABS: Appearance Urine Clear; Color Urine Yellow; Glucose Urine UA Negative (Negative); Leukocyte Esterase Urine Negative (Negative); Nitrite Urine Negative (Negative); UMIC TRIGGER UACC YES; Urine Blood Negative (Negative); Urine Ketones Negative (Negative); Urine Protein 100 (2+) mg/dL (Neg-Trace)
[2022-08-22 05:43] LABS: Anion Gap 13 (12-20); Blood Urea Nitrogen 46 mg/dL (9-16); Calcium 9.2 mg/dL (8.4-10.2); Carbon Dioxide 23 mmol/L (22-29); Chloride 105 mmol/L (96-108); Creatinine Clr Calc Pharmacy 32.3; Estimated Glomerular Filt Rate 28; Glucose Random 131 mg/dL (60-115); Potassium 5.4 mmol/L (3.3-5.1); Sodium 136 mmol/L (135-145)
[2022-08-22 05:54] LABS: Bacteria Urine None Seen (None Seen); RBC Urine 0-2 /HPF (0-2); Squamous Epithelial Cell Urine 0-2 /HPF (0-2); WBC Urine 0-5 /HPF (0-5)
[2022-08-22 07:33] VITALS: PULSE 129; RESP 22; O2SAT 98
[2022-08-22] MEDS: Sodium Zirconium Cyclosilicate 10 GM POWD.PACK PO (08:33)
--- NOTE | 2022-08-22 08:49 | PC.NURSE ---
Pt requesting IV to be removed, repeat BMP obtained.
[2022-08-22 08:57] LABS: Anion Gap 17 (12-20); Blood Urea Nitrogen 44 mg/dL (9-16); Calcium 8.7 mg/dL (8.4-10.2); Carbon Dioxide 20 mmol/L (22-29); Chloride 104 mmol/L (96-108); Creatinine Clr Calc Pharmacy 34.4; Estimated Glomerular Filt Rate 30; Glucose Random 210 mg/dL (60-115); Potassium 4.7 mmol/L (3.3-5.1); Sodium 136 mmol/L (135-145)
--- NOTE | 2022-08-22 10:52 | PC.NURSE ---
Pt sitting in recliner, removed herself from surgical aide. Requesting to go home IV removed
[2022-08-22 11:24] VITALS: BP 102/61; PULSE 79; RESP 18; O2SAT 96
== END 2022-08-22 11:33 | disposition home or self-care (01) ==
PROVIDERS: Emergency Provider Emergency Medicine
DX: E87.5 Hyperkalemia (principal); G89.4 Chronic pain syndrome; R06.02 Shortness of breath; E11.22 Type 2 diabetes mellitus with diabetic chronic kidney disease; I13.0 Hypertensive heart and chronic kidney disease with heart failure and stage 1 through stage 4 chronic kidney disease, or unspecified chronic kidney disease; N18.9 Chronic kidney disease, unspecified; I50.9 Heart failure, unspecified; Z79.899 Other long term (current) drug therapy; Z79.4 Long term (current) use of insulin
CPT/HCPCS: 36415; 51701; 80048; 80076; 81001; 82803; 82947; 83690; 83880; 84484; 85025; 93005; 94640; 96365; 96366; 96375; 99285; J0613

== ENCOUNTER → 2022-08-25 14:16 | Outpatient (BNVA) | payer MEDICARE, MEDICAID, SELFPAY | PROVIDERS: Visit Provider Internal Medicine Cardiovascular Disease | DX: I48.92 Unspecified atrial flutter (principal); I50.9 Heart failure, unspecified; J44.9 Chronic obstructive pulmonary disease, unspecified | CPT/HCPCS: 99212 ==

== ENCOUNTER 2022-08-29 10:09 | Emergency (ER) | payer MEDICARE, MEDICAID, SELFPAY ==
--- NOTE | 2022-08-29 10:31 | ED_ITS ---
HPI - CPR General Chief Complaint: Cardiac Arrest/CPR Stated Complaint: CARDIAC ARREST Time Seen by Provider: 08/29/22 10:16 Source: EMS Mode of arrival: EMS Limitations: other (Cardiac arrest) History of Present Illness HPI narrative: 67-year-old female with multiple medical problems including CHF, atrial flutter, CHF, kidney disease, COPD presents in cardiac arrest. Patient was a witnessed collapse by her . She was sitting at the breakfast table when she put her head on the table once that she was tired. He went to check on her just a few minutes later and she was unresponsive. At that time, patient contacted EMS. Upon arrival, CPR was initiated approximately 916 this morning. On route, patient received a total of epinephrine 7 doses, calcium 1 g in patient arrived on a Mendoza device with a Pastor LT airway. Upon my initial evaluation, patient was apneic, on a Mendoza device. We transitioned her to our equipment. Once fully transitioned and further IV access obtained, we stopped CPR to assess a rhythm impulses. She remained pulseless. She had what appeared to be an idioventricular rhythm that was variable at approximately heart rate of 15-20 beats per minute. Bedside echocardiogram revealed no cardiac contractility. Patient had a total of over 1 hour of CPR. At that time, CPR was stopped and time of was pronounced at 10:17 a.m. this morning. , son and granddaughter were present in the emergency department. Related Data Home Medications Medication Instructions Recorded Confirmed lorazepam 0.5 mg tablet 0.5 mg PO DAILY PRN anxiety 02/12/20 08/25/22 cetirizine 10 mg tablet 10 mg PO DAILY PRN Allergic 12/03/20 08/25/22 Symptoms fluticasone fur. 200 mcg-umeclid 1 inh inhalation DAILY 06/30/22 08/25/22 62.5 mcg-vilant 25 mcg inhalat.powder (Trelegy Ellipta) levothyroxine 150 mcg tablet 1 tab PO DAILY 06/30/22 08/25/22 carbidopa 25 mg-levodopa 100 mg 1 tab PO TID 08/25/22 08/25/22 tablet clonazepam 0.5 mg tablet 0.5 mg PO BID PRN 08/25/22 08/25/22 trazodone 50 mg tablet 50 mg PO BEDTIME 08/25/22 08/25/22 Previous Rx's Medication Instructions Recorded blood-glucose meter (FreeStyle #1 ea 09/30/20 Lite Meter kit) lancets 28 gauge (FreeStyle #100 ea 12/05/20 Lancets) blood sugar diagnostic (FreeStyle #100 ea 12/08/20 Lite Strips) cane #1 ea 12/08/20 levalbuterol tartrate 45 2 inh inhalation Q6H PRN shortness 12/28/20 mcg/actuation aerosol inhaler of breath or wheezing #15 grams (Xopenex HFA) ergocalciferol (vitamin D2) 1,250 1,250 mcg PO MO #12 caps 01/22/21 mcg (50,000 unit) capsule metoprolol tartrate 50 mg tablet 50 mg PO BID #180 caps 01/02/22 albuterol sulfate 1.25 mg/3 mL 1.25 mg (3 mL) inhalation QID PRN 07/04/22 solution for nebulization shortness of breath or wheezing #90 mL nebulizers (AeroEclipse II #1 ea 07/04/22 Nebulizer) apixaban 5 mg tablet (Eliquis) 5 mg PO BID #60 tabs 07/21/22 clopidogrel 75 mg tablet (Plavix) 75 mg PO DAILY #30 tabs 08/07/22 digoxin 125 mcg (0.125 mg) tablet 0.125 mg PO Q2D #15 tabs 08/07/22 doxycycline hyclate 100 mg capsule 100 mg PO BID #14 caps 08/07/22 famotidine 20 mg tablet 20 mg PO DAILY #30 tabs 08/07/22 furosemide 40 mg tablet (Lasix) 40 mg PO BID #60 tabs 08/07/22 insulin glargine 100 unit/mL (3 20 unit (0.2 mL) subcut QAM #15 mL 08/07/22 mL) subcutaneous pen (Lantus Solostar U-100 Insulin) insulin lispro 100 unit/mL 0 sliding scale dose subcut 08/07/22 subcutaneous pen (Humalog KwikPen QIDACHS #15 mL (U-100) Insulin) pen needle, diabetic 32 gauge x #100 ea 08/07/22 1/4 Allergies Allergy/AdvReac Type Severity Reaction Status Date / Time Penicillins Allergy Mild UNKNOWN Verified 08/25/22 15:11 buprenorphine [Suboxone] Allergy Unknown unknown Verified 08/25/22 15:11 naloxone [Suboxone] Allergy Unknown unknown Verified 08/25/22 15:11 [facility] Past Medical History Medical History CAD (coronary artery disease) Cervical cancer screening CKD (chronic kidney disease) COPD (chronic obstructive pulmonary disease) Diabetes High cholesterol Hypothyroidism Leukocytosis Post-menopausal Screening for breast cancer Surgical History Hx of coronary artery bypass graft S/P cardiac catheterization Family History Family History Mother Diabetes CAD (coronary artery disease) Social History Social History Household Members: Spouse and Family Housing: House Do you presently have visiting nurse or other home services: Yes ([employer]) Alcohol intake: never Patient Tobacco Use Status: Former Tobacco user Quit Date: 07/04/22 Tobacco use type: Cigarette Years Smoked: 40+/- years Second Hand Smoke Exposure: No service: No Current occupational status: disabled Physical Exam Vital Signs: GEN: Well developed, apathetic, no spontaneous movement, airway present, Mendoza device on and operational HEENT: Normocephalic, atraumatic, normal external ears, nose appears normal Eyes: Normal to appearance Respiratory: Airway in place, no spontaneous respirations, breath sounds equal bilaterally Extremities: No clubbing cyanosis or edema Neurologic: No spontaneous movement Abdomen: Distended, nontender Course Course Course Narrative: 67-year-old female with multiple medical problems presents in acute cardiac arrest. Upon arrival, patient was pulseless and apneic. She had narrow in place. Lungs were equal bilaterally anteriorly. She was given 1 amp of epinephrine while transitioning to our equipment. Once fully transition, pulses, rhythm were assessed. She remained in pulseless electrical activity. She had what appeared to be an idioventricular rhythm at a heart rate of approximately 30. Bedside echocardiogram revealed no cardiac contractility or motion. Time of was pronounced shortly thereafter at 10:17 a.m. this morning. Family was made aware and presently emergency department. They are currently bedside with her. Reevaluation(s) Reevaluation #1: Discussed with ME, Tay Arguelles, , not a case Time: 10:45 Medical Decision Making Medical Decision Making MDM Narrative: Patient presents in cardiac arrest. See HPI and course. Differential Diagnosis Differential Diagnoses: The differential diagnosis associated with the presentation includes (Cardiac cardiac arrest, cardiac dysrhythmia, myocardial infarction, electrolyte abnormality) Independent Interpretation I performed an independent interpretation of an: Rhythm Strip (PE a) and Ultrasound (Bedside echocardiogram, no cardiac and wall motion, no pericardial effusion) Independent Historian Clinical information obtained from an independent historian. History obtained from or confirmed by: Spouse External Record Review External record reviewed: Inpatient record Procedures Procedure Narrative Procedure Narrative: CPR: Patient came in pulseless electrical activity, patient was maintained with cardiac compressions using lip of Mendoza device, patient received 1 amp of epinephrine, airway was maintained using a Pastor LT airway. Critical Care Time Critical Care Time Critical Care Time: Yes Total Critical Care Time: 32 Attestation: Approximately 32 minutes of critical care time was spent on this patient including bedside assessment, discussion with family, documentation, review of records, contacting medical reception specialist. Discharge Plan Discharge Clinical Impression: Cardiac arrest Patient Disposition: Prescriptions: No Action (DME) blood-glucose meter [FreeStyle Lite Meter] Kit See Rx Instructions .ROUTE .MEDSUPPLY Qty: 1 0RF Rx Instructions: Test Daily (DME) lancets [FreeStyle Lancets] 28 gauge misc See Rx Instructions .ROUTE .MEDSUPPLY Qty: 100 0RF Rx Instructions: Daily (DME) FreeStyle Lite Strips Strip See Rx Instructions .Route Qty: 100 0RF Rx Instructions: test twice a day (DME) cane Device See Rx Instructions .Route Qty: 1 0RF Rx Instructions: As directed levalbuterol tartrate [Xopenex HFA] 45 mcg/actuation HFA aerosol inhaler 2 inh inhalation Q6H PRN (Reason: shortness of breath or wheezing) Qty: 15 0RF ergocalciferol (vitamin D2) 1,250 mcg (50,000 unit) capsule 1,250 mcg PO MO Qty: 12 1RF metoprolol tartrate 50 mg tablet 50 mg PO BID Qty: 180 1RF cetirizine 10 mg Tablet 10 mg PO DAILY PRN (Reason: Allergic Symptoms) levothyroxine 150 mcg tablet 1 tab PO DAILY Trelegy Ellipta 200-62.5-25 mcg blister with device 1 inh inhalation DAILY furosemide [Lasix] 40 mg tablet 40 mg PO BID Qty: 60 0RF clopidogrel [Plavix] 75 mg tablet 75 mg PO DAILY Qty: 30 0RF digoxin 125 mcg (0.125 mg) Tablet 0.125 mg PO Q2D Qty: 15 0RF doxycycline hyclate 100 mg capsule 100 mg PO BID Qty: 14 0RF insulin glargine [Lantus Solostar U-100 Insulin] 100 unit/mL (3 mL) insulin pen 20 unit subcut QAM Qty: 15 0RF insulin lispro [Humalog KwikPen Insulin] 100 unit/mL insulin pen 0 sliding scale dose SUBCUT QIDACHS Qty: 15 0RF Rx Instructions: Blood Sugar: <150 - 0 units 151-200 - 2 units 201-250 - 4 units 251-300 - 6 units 301-350 - 8 units >350 - 10 units (DME) pen needle, diabetic 32 gauge x 1/4 needle Qty: 100 0RF Rx Instructions: Use four times a day or as directed. famotidine 20 mg tablet 20 mg PO DAILY Qty: 30 0RF lorazepam 0.5 mg tablet 0.5 mg PO DAILY PRN (Reason: anxiety) Eliquis 5 mg tablet 5 mg PO BID Qty: 60 3RF (DME) nebulizers [AeroEclipse II Nebulizer] Misc See Rx Instructions .Route Qty: 1 0RF Rx Instructions: As directed albuterol sulfate 1.25 mg/3 mL solution for nebulization 1.25 mg inhalation QID PRN (Reason: shortness of breath or wheezing) Qty: 90 3RF trazodone 50 mg tablet 50 mg PO BEDTIME carbidopa-levodopa 25-100 mg tablet 1 tab PO TID clonazepam 0.5 mg tablet 0.5 mg PO BID PRN
[2022-08-29 10:32] LABS: Glucose, Whole Blood 286 mg/dL (60-115)
--- NOTE | 2022-08-29 10:32 | PC.NURSE ---
spoke with [facility], reference number [id number]. will call back in a few hours for update.
--- NOTE | 2022-08-29 10:43 | PC.NURSE ---
[facility] called to say they will be placing hold on body.
--- NOTE | 2022-08-29 10:44 | MHC.EDTECH ---
@10:35AM DR ALEX GIVES TIME OF 10:17AM AND REQUESTS CALL OUT TO [facility] OFFICE NA ANSWERS, TAKES PT DEMOGRAPHICS THEN ASKS TO SPEAK WITH DR ISAI ALEX TAKES OVER CALL RIGHT AWAY
== END 2022-08-29 12:23 | disposition expired ==
PROVIDERS: Emergency Provider Emergency Medicine; PCP Internal Medicine
DX: I46.9 Cardiac arrest, cause unspecified (principal)
CPT/HCPCS: 82947; 96374; 99282; 99285; J0171